=== PATIENT | male | born 1960 | race Caucasian/White ===

== ENCOUNTER 2022-03-03 08:07 | Observation (INO) | payer MEDICARE, OTHER, SELFPAY ==
[2022-03-03] VITALS (20 sets, daily range): BP systolic 93–138; BP diastolic 57–89; PULSE 74–97; RESP 16; TEMP 36.1–36.9; O2SAT 98–100; BMI 18.9; BMI 22.8
--- NOTE | 2022-03-03 08:30 | CRLHL7_ITS ---
For Patients: As a result of the Century Cures Act, medical imaging exams and procedure reports are released immediately into your electronic medical record. You may view this report before your referring provider. If you have questions, please contact your health care provider. INDICATION: CONFUSION, AMS, ELEVATED AMMONIA LEVELS. HX OF NEUROENDOCRINE TUMOR OF PANCREAS TECHNIQUE: Head CT without contrast. COMPARISON: None. FINDINGS: CSF spaces: Within normal limits for age. Brain parenchyma and extra-axial spaces: There are mild nonspecific low attenuation white matter changes consistent with chronic microvascular disease. No intracranial hemorrhage or extra-axial fluid collection. No evidence of mass effect or midline shift. The basilar cisterns are patent. Skull base and calvarium: The visualized paranasal sinuses and mastoid air cells demonstrate no acute or significant findings. The visualized orbits are grossly unremarkable. No skull fractures. IMPRESSION: No evidence of acute intracranial abnormality on this unenhanced CT. Please note that all CT scans at this facility use dose modulation, iterative reconstruction, and/or weight-based dosing when appropriate to reduce radiation dose to as low as reasonably achievable. Dictated by Vicente Shoemaker MD @ 03/03/2022 9:51:50 AM (Electronically Signed)
--- NOTE | 2022-03-03 08:40 | ED.NURSE ---
Per Dr. Meyer. Please administer 15ml of Lactulose PO now. Use patient's own med if possible. Patient was able to safely drink the 15ml without aspiration.
--- NOTE | 2022-03-03 08:45 | ED.NURSE ---
Per Pharmacy: Lactulose enema consists of 300ml of lactulose mixed with 700ml of water for a total of 1000ml of volume. Dr. Meyer was notified of this. Wants to wait for lab results until we make a decision for treatment.
[2022-03-03 08:49] LABS: Lactate* 1.5 mmol/L (0.5-1.9)
[2022-03-03 09:00] LABS: Basophils Percent Auto 0.6 % (0.0-3.0); Eosinophils Percent Auto 2.3 % (0.0-7.0); Hematocrit 33.3 % (37.0-53.0); Hemoglobin* 11.5 gm/dL (13.5-17.5); Immature Granulocytes Pct Auto 0.3 %; Lymphocytes Percent Auto 11.4 % (20-44); Mean Corpuscular HGB Conc 35 gm/dL (32-36); Mean Corpuscular Hemoglobin 29 pg (26-34); Mean Corpuscular Volume 83 fL (80-100); Monocytes Percent Auto 9.4 % (0.0-11.0); Platelet Count* 73 K/uL (140-440); RDW Coefficient of Variation % 14.9 % (11.5-15.5); Red Blood Count 4.02 m/uL (4.30-5.90); White Blood Count* 3.51 K/uL (4.50-11.00)
[2022-03-03 09:04] LABS: Slide Review Reflex No
[2022-03-03 09:19] LABS: Albumin* 3.4 g/dL (3.3-5.0); Chloride* 112 mmol/L (96-114); Potassium* 3.7 mmol/L (3.6-5.1); Sodium* 140 mmol/L (135-149)
[2022-03-03 09:21] LABS: Creatinine* 0.7 mg/dL (0.5-1.5); Estimated Glomerular Filt Rate 105 ml/min
[2022-03-03 09:22] LABS: Alanine Aminotransferase* 41 U/L (4-50); Alkaline Phosphatase* 189 U/L (40-150); Aspartate Amino Transferase* 39 U/L (12-35); Bilirubin Direct* 0.3 mg/dL (0.0-0.5); Bilirubin Total* 1.1 mg/dL (0.1-1.5); Blood Urea Nitrogen* 13 mg/dL (7-30); Carbon Dioxide* 24 mmol/L (20-32); Glucose* 265 mg/dL (60-115)
[2022-03-03 09:23] LABS: Calcium* 8.4 mg/dL (8.4-10.6)
[2022-03-03 09:25] LABS: C Reactive Protein* 1.5 mg/dL (0.5-1.0)
[2022-03-03 09:32] LABS: Ethanol* < 0.01 % (0.01-0.03)
--- OUTSIDE RECORDS SUMMARY | 2022-03-03 09:37 | XMS_ITS | Clinical Summary ---
:1960 Author Organization [facility] Address [address] [place] [address] Care Team Providers Name Role Phone Elsewhere, Pcp Primary Care Provider Unavailable Source Comments Patient records contain information from all sites at [facility]. For routine questions regarding patient records, call [phone] during business hours, M-F 8:00 AM - 5:00 PM Central Time. Record requests for emergency care only can be directed to [phone] at any time.[facility] Allergies Active Allergy Reactions Severity Noted Date Comments Ampicillin Diarrhea 06/21/2009 Black stools Black stools Medications Medication Sig Dispensed Refills Start Date End Date Status linaGLIPtin Take 5 mg by 0 Activ e (TRADJENTA) 5 mg mouth daily. tablet atorvastatin (LIPITOR) Take 40 mg by 0 Active 40 mg tablet mouth daily. nochbu-zrijmsjy-plglkv Take 6-7 0 Active e (CREON) capsules by 24,000-76,000-120,000 mouth 3 (three) Unit per DR capsule times a day with meals. 6-7 capsule with meals and 3-4 with snacks as needed. multivitamin-minerals- Take 1 tablet by 0 Active OT-fuakdrly-fbyzfg mouth daily. (CENTRUM SILVER) 0.4-300-250 mg-mcg-mcg tablet MAGNESIUM CITRATE ORAL Take 1 capsule 0 Active by mouth daily. 225mg per cap cholecalciferol Take 125 mcg by 0 Active (VITAMIN D3) 125 mcg mouth 2 (two) (5,000 Unit) capsule times a day. ZINC ORAL Take 1 tablet by 0 Act uche mouth at bedtime. 30mg per tablet lactulose (CHRONULAC) Take 15 mL (10 g 650 mL 3 02/16/2021 Active 10 gram/15 mL (15 mL) total) by mouth solution 5 (five) times a day. Take to goal of 2-3 soft bowel movements daily. lisinopril-hydroCHLORO Take 0.5 tablets 30 tablet 0 02/16/2021 Active thiazide by mouth daily. (PRINZIDE,ZESTORETIC) HOLD until 10-12.5 mg per tablet follow up with primary care physician. apixaban (ELIQUIS) 2.5 TAKE 1 TABLET BY 60 tablet 0 02/16/2021 Active mg tablet MOUTH TWO TIMES A DAY pantoprazole TAKE 1 TABLET BY 60 tablet 3 02/16/2021 (PROTONIX) 40 mg EC MOUTH TWO TIMES tablet A DAY BEFORE BREAKFAST AND DINNER Active Problems Problem Noted Date Hematemesis 02/12/2021 Hemorrhage Gastrointestinal 02/12/2021 Immunizations Name Administration Dates Next Due influenza vaccine quad (FLUZONE/FLUARIX) (6 months and 02/12 older)(PF) Social History Tobacco Use Types Packs/Day Years Used Date Smoking Tobacco: Never Smokeless Tobacco: Never Alcohol Use Standard Drinks/Week Comments Not Currently 0 (1 standard drink = 0.6 oz pure alcoho l) Sex Assigned at Date Recorded Not on file Last Filed Vital Signs Vital Sign Reading Time Taken Comments Blood Pressure 139/88 02/16/2021 3:26 PM MACHINE SETTER AND REPAIRER Pulse 81 02/16/2021 3:26 PM MACHINE SETTER AND REPAIRER Temperature 36.7 ??C (98.1 ??F) 02/16/2021 3:26 PM MACHINE SETTER AND REPAIRER Respiratory Rate 14 02/16/2021 3:26 PM MACHINE SETTER AND REPAIRER Oxygen Saturation 99% 02/16/2021 3:26 PM MACHINE SETTER AND REPAIRER Inhaled Oxygen Concentration - - Weight 74.9 kg (165 lb 2 oz) 02/15/2021 12:36 AM MACHINE SETTER AND REPAIRER Height 185 cm (6' 0.84) 02/12/2021 5:11 PM MACHINE SETTER AND REPAIRER Body Mass Index 21.88 02/12/2021 5:11 PM MACHINE SETTER AND REPAIRER Plan of Treatment Health Maintenance Due Date Last Done Comments CT Colonography 1960 Cologuard 1960 FIT 1960 HIV Screening 1960 Hepatitis B Vaccines (1 of 1960 3 - 3-dose series) Hepatitis C Screening 1960 Lipid (Cholesterol) 1960 Screening Depression Screening 03/30/2021 (Annual PHQ-2) COVID-19 Vaccine (4 - 08/14/2021 06/19/2021, 08/11/2020, Booster for Pfizer series) 07/21/2020 Influenza Vaccine (#1) 2021 02/12/2021, 02/14/2020, 01/17/2019, Additional history exists Creatinine Level 02/16/2022 02/16/2021, 02/14/2021, 02/13/2021, Additional history exists Potassium Level 02/16/2022 02/16/2021, 02/14/2021, 02/13/2021, Additional history exists Sodium Level 02/16/2022 02/16/2021, 02/14/2021, 02/13/2021, Additional history exists Fasting Glucose for 02/17/2024 02/16/2021, 02/16/2021, Diabetes Screening 02/16/2021, Additional history exists DTaP,Tdap,and Td Vaccines 10/31/2026 10/31/2016, 10/27/2005 (3 - Td or Tdap) Colonoscopy 05/17/2029 05/17/2019, 03/13/2017 Colorectal Cancer Screening 05/17/2029 Zoster Vaccines Completed 02/05/2018, 11/20/2017 Pneumococcal vaccine (0-64 Aged Out 12/14/2019 No lo nger eligible years) based on patient 's age to complete this topic Insurance Payer Benefit Plan / Subscriber ID Effective Phone Address T ype Group Dates MEDICARE MEDICARE A AND B [id number] 2020-Pre PO [address] Medicare sent [id number] [address] [facility] [id number] 2020-Pre [phone] [address] PPO INTERNATIONAL sent [id number] [place] [address] [place] (Home) [place] j[place] [phone] Advance Directives For more information, please contact: [phone] Latest Code Status on File Code Status Date Activated Date Inactivated Comments Full Code 02/12/2021 4:23 PM 02/16/2021 7:33 PM Question Answer Comments Full Code: Discussed Care Teams Court Bailiff Relationship Specialty Start Date End Date Elsewhere, Pcp PCP - General Family Medicine 02/12/21
--- OUTSIDE RECORDS SUMMARY | 2022-03-03 09:37 | XMS_ITS | Encounter Summary ---
:1960 Author Organization [facility] Address [address] [place] [address] Care Team Providers Name Role Phone Elsewhere, Pcp Primary Care Provider Unavailable Encounter Details Date Type Department Care Team Description 02/16/2021 Orders Only [facility], [facility], [facility] r [address] [place] [address] [address] [place] [id number] [phone] (Wo rk) Social History Tobacco Use Types Packs/Day Years Used Date Smoking Tobacco: Never Smokeless Tobacco: Never Alcohol Use Standard Drinks/Week Comments Not Currently 0 (1 standard drink = 0.6 oz pure alcoho l) Sex Assigned at Date Recorded Not on file documented as of this encounter Plan of Treatment Not on filedocumented as of this encounter Visit Diagnoses Not on filedocumented in this encounter Care Teams Credit Advisor Relationship Specialty Start Date End Date Elsewhere, Pcp PCP - General Family Medicine 02/12/21 documented as of this encounter
--- OUTSIDE RECORDS SUMMARY | 2022-03-03 09:37 | XMS_ITS | Clinical Summary ---
:1960 Author Organization [facility] [place] [address] Care Team Providers Name Role Phone Hiram Saini MD Primary Care Provider [phone] July, Marialuisa Yates RN, BSN Unavailable Valarie Kamara MD Unavailable Brandie Durham NP Unavailable Allergies Active Allergy Reactions Severity Noted Date Comments Ampicillin 06/21/2009 Black stools Medications Medication Sig Dispensed Refills Start Date End Date Status multivitamin (MVI) Take 1 tablet by 0 Active tablet mouth once daily. Lanreotide 120 Inject 0.5 mL 0 11/11/2017 Active mg/0.5 mL subcutaneous every syrgIndications: 4 weeks. Primary pancreatic neuroendocrine tumor ljsskw-eshbxrjm-wikg Take 6 capsules by 640 capsule 6 09/08/19 19 Active ase (CREON) mouth before each 24,000-76,000 meal and 2 -120,000 unit cpDR capsules by mouth Delayed-Release before snacks capsuleIndications: Pancreatic insufficiency atorvastatin TAKE 1 TABLET BY 90 tablet 0 11/19/2018 Active (LIPITOR) 40 mg MOUTH ONCE DAILY tabletIndications: Hyperlipidemia, unspecified hyperlipidemia type pantoprazole TAKE 1 TABLET BY 90 tablet 0 11/19/2018 Active (PROTONIX) 40 mg MOUTH ONCE DAILY delayed-release BEFORE A MEAL tabletIndications: Neuroendocrine tumor of pancreas iron,carb/vit C/vit Take 100 mg by 0 Active B12/folic (IRON 100 mouth once daily. PLUS ORAL) linaGLIPtin Take 5 mg by mouth 0 07/04/2019 Active (TRADJENTA) 5 mg once daily. tabIndications: type Indications: type 2 diabetes mellitus 2 diabetes mellitus magnesium oxide 400 Take 400 mg by 0 Active mg magnesium mouth once daily. tabIndications: Indications: low hypomagnesemia amount of magnesium in the blood apixaban (ELIQUIS) Take 2.5 mg by 0 Active 2.5 mg tablet mouth 2 times daily. cholecalciferol, Take 1 Tablet by 0 Active vitamin D3, (VITAMIN mouth once daily. D3 ORAL) 1000 iu ZINC ORAL Take 1 Tablet by 0 Act uche mouth once daily. 50mg LACTULOSE ORAL Take 15 mL/oz by 0 Active mouth 5 times daily. 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 8 Primary malignant neuroendocrine tumor of pancreas Surgical wound, non healing 08/09/2017 Colon polyps 05/18/2016 Allergic rhinitis 07/28/2011 Hypertension 06/21/2009 Hyperlipidemia 06/21/2009 Resolved Problems Problem Noted Date Resolved Date Neuroendocrine cancer 10/15/2017 09/02/2018 Primary pancreatic neuroendocrine tumor 10/15/2017 09/02/2018 Neuroendocrine tumor of pancreas 11/02/2016 019 Polyp of colon 09/02/2018 Immunizations Name Administration Dates Next Due Influenza RIV4 (Age 18+ Years) 01/17/2019 PRESERV FREE Influenza Virus, Unspecified 02/14/2020 Influenza, IIV3 (Age >=3 years) 02/21/2012 Influenza, IIV4 02/12/2021, 02/14/2020, 01/17/2019, 01/19/2018, 01/09/2017 MMR 01/30/2015 Pneumococcal Poly,23-Valent 12/14/2019 (Pneumovax) Tdap 10/31/2016, 10/27/2005 Yellow Fever 07/18/2011 Zoster (Shingrix-RZV, recombinant) 02/05/2018, 11/20/2017 Family History Medical History Relation Name Comments Other Brother 2 sleep apnea Hypertension Father Hypertension Mother Other Mother glaucoma Heart Disease Paternal Grandmother heart attac k at 85 Diabetes Sister 2 Relation Name Status Comments Brother 1 Alive Brother 2 Father Alive Mother Alive Paternal Grandmother Sister 1 Alive x2 Sister 2 Social History Tobacco Use Types Packs/Day Years Used Date Never Smoker Smokeless Tobacco: Never Used Alcohol Use Standard Drinks/Week Comments Yes 0 (1 standard drink = 0.6 oz pure alcoho l) 1 beer every other day Alcohol Habits Answer Date Recorded How often do you have a drink containing Not asked alcohol? How many drinks containing alcohol do you have Not asked on a typical day when you are drinking? How often do you have six or more drinks on one Not asked occasion? Comment: 1 beer every other day 11/09/2017 Sex Assigned at Date Recorded Not on file Obstetrics History Last Filed Vital Signs Vital Sign Reading Time Taken Comments Blood Pressure 150/83 10/07/2021 1:58 PM CDT Pulse 77 10/07/2021 1:58 PM CDT Temperature 36.8 ??C (98.3 ??F) 10/07/2021 1:58 PM CDT Respiratory Rate 18 10/07/2021 1:58 PM CDT Oxygen Saturation 98% 10/07/2021 1:58 PM CDT Inhaled Oxygen Concentration - - Weight 77.1 kg (169 lb 14.4 oz) 10/07/2021 1:58 PM CDT Height 185.4 cm (6' 1) 05/17/2019 6:52 AM LEATHER SCRUBBER Body Mass Index 22.42 05/17/2019 6:52 AM LEATHER SCRUBBER Plan of Treatment Health Maintenance Due Date Last Done Comments HIV for age 15-65 1976 Hepatitis C screening for age 0104/14/1979 18-79 Depression screening for age 12+ 11/20/2017 11/20/2016, , 10/14/2016 BMI (ht and wt on same day) for 11/18/2019 11/17/2018, 10/28, age 18+ 09/07/2017, Additional history exists Colonoscopy through age 75 05/17/2020 05/17/2019, 7, 07/16/2011, Additional history exists COVID-19 vaccine series (4 - 08/14/2021 06/19/2021, 021, Booster for Pfizer series) 07/21/2020 Influenza for age 50-64 11/28/2021 02/12/2021, 02/14/2020, 02/14/2020, Additional history exists Lipids for age 45-75 02/16/2022 02/16/2017, 01/30/2015, 05/17/2014, Additional history exists Tetanus booster 10/31/2026 10/31/2016, 06/21/2009, 10/27/2005 Tdap Completed 10/31/2016, 10/27/2005 Zoster (shingles) series for age Completed 02/05/2018, 50+ Medical Devices Implanted Type Area Consulting Marine Engineer Device Shelf Model / Identifier Expiration Serial / Date Lot Mesh Surgical 3in X 6in - [id number] Left: D-ATRIUM 01/27/2019 [id number] / Implanted: Qty: 1 on 06/20/2014 by Bravo Oakley MD at [facility] Groin / [id number] Stent Biliary [id number] Advanix Duodenal Bend Plst - [id number] [facility] 05/27/2018 [id number] / Implanted: Qty: 1 on 10/24/2016 at [facility] Gastroenterology / [id number] Explanted Type Area Consulting Marine Engineer Device Shelf Model / Identifier Expiration Serial / Date Lot Stent Biliary [id number] Advanixduodenal Bend Plst - [id number] [facility] 06/27/2018 [id number] / Implanted: Qty: 1 Gastroenterology / Explanted: Qty: 1 on 10/24/2016 at [facility] [id number] Results Not on filefrom Last 3 Months Insurance Payer Benefit Plan / Subscriber ID Effective Dates Phone Addre ss Type Group MEDICARE PART A - MEDICARE PART A [id number] 2019-Presen ATTN: CLAIMS HB USE ONLY HB ONLY t [address] [place] [address] MEDICARE PART B - MEDICARE PART B [id number] 2020-Presen ATTN: CLAIMS HB USE ONLY HB ONLY t [address] [place] [address] FOR [id number] 2021-Prese [address] [place] [address] [facility] [id number] 2018-Presen [address] [address] [place] [address] Son Rouse Personal/Family Self 1960 [id number]Home) [place] [id number] Son Rouse Personal/Family Self 1960 [id number]) [place] [id number] Advance Directives Latest Code Status on File Code Status Date Activated Date Inactivated Comments Full Code 05/17/2019 6:39 AM 05/17/2019 12:39 PM Code Status Discussion: Discussed Full Code 11/06/2016 9:39 PM 11/12/2016 5:53 PM Full Code 11/06/2016 5:21 AM 11/06/2016 9:19 PM Full Code 06/20/2014 9:23 AM 06/20/2014 12:31 PM Full Code 06/20/2014 6:57 AM 06/20/2014 9:23 AM Care Teams Tray Checker Relationship Specialty Start Date End Date Hiram Saini PCP - General 06/28/12 MD [address] [place] [address] Marialuisa Abreu RN, Cancer Nurse Coordinator Oncology 10/23/16 BSN [address] [address] Valarie Kamara Oncology Hematology and 01/10/20 MD [facility] [address] [place] [address] Brandie Durham, CORBY Oncology Hematology and 01/10/20 [address] [place] [address]
--- OUTSIDE RECORDS SUMMARY | 2022-03-03 09:38 | XMS_ITS | Continuity of Care Document ---
:1960 Author Organization [facility] Care Team Providers Name Role Phone [facility] Unavailable Unavailable Social History Combined list of available smoking, tobacco, and other social history from [facility]. Social History Type Response Date Comment Source This section is an empty social history section. [facility]
--- OUTSIDE RECORDS SUMMARY | 2022-03-03 09:38 | XMS_ITS | Encounter Summary ---
:1960 Author Organization [facility] Address [address] [place] [address] Care Team Providers Name Role Phone Elsewhere, Pcp Primary Care Provider Unavailable Encounter Details Date Type Department Care Team Description 02/13/2021 Ancillary Procedure Department of Gastroenterology Social History Tobacco Use Types Packs/Day Years Used Date Smoking Tobacco: Never Smokeless Tobacco: Never Alcohol Use Standard Drinks/Week Comments Not Currently 0 (1 standard drink = 0.6 oz pure alcoho l) Sex Assigned at Date Recorded Not on file documented as of this encounter Plan of Treatment Not on filedocumented as of this encounter Procedures Procedure Name Priority Date/Time Associated Comments Diagnosis GASTROENTEROLOGY IMAGE Routine 02/13/2021 10:30 R esults for this EXAM AM CHEESE SPRAYER procedure are i n the results section. documented in this encounter Results Esophagus, Lower third of the esophagus Upper GI endoscopy-Gastroenterology Image Exam (02/13/2021 10:30 AM CHEESE SPRAYER) Specimen (Source) Anatomical Collection Method Collection Time Re ceived Time Location / / Volume Laterality 02/13/2021 10:27 AM CHEESE SPRAYER Narrative [facility] - 02/13/2021 12:21 PM CHEESE SPRAYER This order has been created and auto-finalized to support the import of images acquired without order. The clini ming documentation to support these images can be found on the encounter jaida t produced images. Provider Not In System IMG NON RAD IMAGING PROCEDUR ES Performing Organization Address City/State/ZIP Code Phon e Number [facility] NA documented in this encounter Visit Diagnoses Not on filedocumented in this encounter Care Teams Operations Superintendent Relationship Specialty Start Date End Date Elsewhere, Pcp PCP - General Family Medicine 02/12/21 documented as of this encounter
--- OUTSIDE RECORDS SUMMARY | 2022-03-03 09:38 | XMS_ITS | Encounter Summary ---
:1960 Author Organization [facility] Address [address] [place] [address] Care Team Providers Name Role Phone Elsewhere, Pcp Primary Care Provider Unavailable Encounter Details Date Type Department Care Team Description 02/13/2021 Anesthesia Event Division of Gastroenterology Chano Dangelo, in [facility] abhi FILLING LAYER UP, TAR POT WORKER [address] [facility] [address] [place] [address] [place], [place] [phone] [id number] Anesthesia Record Procedure Summary Procedure Name Responsible Anesthesia Start Anesthesia Stop Time Anesthesiologist Time EGD Chano Dangelo, IVA, 02/13/21 1055 02/13/21 1145 (ESOPHAGEALGASTRODU TAR POT WORKER ODENOSCOPY) Events Date Time Event Comment 02/13/2021 1055 An Start Machine/Equipmen t Checked Infection Precautions Foll owed Procedure/Site Verified NPO Sta tus Verified Supine Standard ASA Mon itors Applied 1057 An Induction 1059 An Intubation 1100 Turnover to Proceduralist 1105 Proc Start 1132 Proc Fin 1132 Turnover to ANE Staff 1140 Airway Removal Criteria Met 1140 Extubation/Airway Removed 1140 an stop data 1145 An End I completed my h andoff to the receiving staff during [facility] we 1. Identified the patient 2. Ident ified the responsible provider 3. Revi ewed the pertinent medical history 4. Discussed the surgical course 5. Review ed intra-op anesthesia management and i ssues during anesthesia 6. Set expectati ons for post-procedure period 7. Allowe d opportunity for questions and ac knowledgement of understanding. Name Total fentanyl injection 50 mcg/mL 100 mcg lidocaine 2% (mg) injection 100 mg propofol 10 mg/mL 160 mg succinylcholine 20 mg/mL injection 100 mg ondansetron 4 mg/2 mL injection 4 mg octreotide 2 mcg/mL in NaCl 0.9% 250 mL infusion (Sand oSTATIN) 41.67 mcg Lactated Ringers Free Drip 400 mL Agents No agents on file. Blood No blood administrations on file. Lines, Drains, and Airways Type Details Placement Removal Peripheral IV Placement Date: 02/12/21; 02/12/21 1229 by 02/16 1600 by Placement Time: 1229; Chelita Georges APRN, Dut tenhefer, Sierra Catheter Size: 18 G; C.N.P., D.N.P. J, R.N. Orientation: Right; Location: Antecubital; Removal Date: 02/16/21; Removal Time: 1600; Removal Reason: Patient discharged Peripheral IV Placement Date: 02/12/21; 02/12/21 1230 by 02/16 1600 by Placement Time: 1230; Chelita Georges APRN, Yamileth Ramon Catheter Size: 18 G; C.N.P., D.N.P. J, R.N. Orientation: Right; Location: Forearm; Site Prep: Chlorhexidine (Preferred); Technique: Anatomical landmarks; Removal Date: 02/16/21; Removal Time: 1600 ETT Placement Date: 02/13/21; 02/13/21 1059 by 02/13 1140 by Placement Time: 1059 Chano Dangelo APRN, Mul ler, Dustin A, (created via procedure TAR POT WORKER ALEX ENRIQUE documentation); Mask Ventilation: Not attempted; Type: Standard ETT; Single Lumen Tube Size: 7.5 mm; Cuffed: Yes; Location: Oral; Grade View: Grade 1; Insertion Attempts: 1; Placement Verification: Bilateral breath sounds, Positive ETCO2, Symmetrical chest wall movement; Removal Date: 02/13/21; Removal Time: 1140 documented in this encounter Social History Tobacco Use Types Packs/Day Years Used Date Smoking Tobacco: Never Smokeless Tobacco: Never Alcohol Use Standard Drinks/Week Comments Not Currently 0 (1 standard drink = 0.6 oz pure alcoho l) Sex Assigned at Date Recorded Not on file documented as of this encounter OR Notes Anesthesia Postprocedure Evaluation - Chano Dangelo APRN, CRNA - 02/13/2021 11:45 AM CST Patient: Son Rouse Procedure Summary Date: 02/13/21 Room / Location: Division of Gastroenterology in [place], [place] Anesthesia Start: 1055 Anesthesia Stop: 1145 Procedure: EGD (ESOPHAGEALGASTRODUODENOSCOPY) Diagnosis: Scheduled Providers: Chano Dangelo APRN, CRNA Responsible Provider: Chano Dangelo APRN, CRNA Anesthesia Type: general ASA Status: 3 Anesthesia Type: general Last vitals Vitals Value Taken Time BP 150/91 02/13/21 1144 Temp 36.5 ??C 02/13/21 1144 Pulse 81 02/13/21 1145 Resp 14 02/13/21 1145 SpO2 99 % 02/13/21 1145 Vitals shown include unvalidated device data. Please reference Vitals flowsheet for most recent vital signs. Anesthesia Post Evaluation Patient Disposition: general care unit Cardiovascular status: hemodynamics (HR & BP) acceptable Respiratory status: patent airway with spontaneous effort Temperature: normothermic Oxygen requirements: room air Level of consciousness: awake Pain score: pain adequately controlled and/or at baseline Post Op nausea/vomiting: none Hydration status: euvolemic CLE COORDINATOR Anesthesia Procedure Notes - Chano Dangelo APRN, CRNA - 02/13/2021 10:59 AM CSTAssociated Order(s): Airway Airway Date/Time: 02/13/2021 10:59 AM Performed by: Chano Dangelo APRN, CRNA Authorized by: Chano Dangelo APRN, CRNA Patient location during procedure: OR / Procedure Area PROCEDURE DETAILS: Mask difficulty assessment: not attempted Final airway type: video laryngoscope Laryngeal Manipulation: no Final best view of glottic structures - Cormack/Lehane Score: grade 1 ETT location: oral VL device: glide scope Adult tube size: 7.5 Adult ETT distance at teeth/gum: 23 Oral tube type: standard ETT Cuffed: yes Number of attempt to successful placement: 1 Airway confirmation: bilateral breath sounds, positive ETCO2 and bilateral chest rise Other previous techniques attempted: none PRE PROCEDURE DETAILS: Pre evaluation for airway management: procedure Urgency: elective Preop assessment of probable difficulty: no difficulty anticipated Preoxygenation: bag valve mask SEDATION / ANESTHESIA Anesthesia method: anesthesia POST PROCEDURE DETAILS: Procedure outcome: successful Airway event: no complications ATTESTATION STATEMENT CLE COORDINATOR Anesthesia Preprocedure Evaluation - Chano Dangelo APRN, CRNA - 02/13/2021 10:50 AM CST Preprocedure Anesthesia & H&P Assessment Procedure Summary Date/Time: 02/13/21 1000 Scheduled providers: Chano Dangelo APRN, CRNA Procedure: EGD (ESOPHAGEALGASTRODUODENOSCOPY) Location: Division of Gastroenterology in [place], [place] Pertinent components of the patient's history including current problem list, medical history, surgical history, family history, social history, medications and allergies were reviewed. Present illnessand pre-op diagnosis were confirmed. The planned surgery / procedure was verified with the patient /legal guardian. The patient's general health condition remains unchanged RELEVANT COMORBID CONDITIONS No relevant active problems OBJECTIVE PHYSICAL EXAMINATION Airway (HEENT) Mallampati: II TM Distance: >3 FB Neck ROM: Full Mouth Opening: >3 cm Cardiovascular Rhythm: Regular Rate: Normal Cardiovascular Assessment: cardiovascular normal Functional Capacity: >4 METS Pulmonary Pulmonary Assessment: Clear General / Constitutional Constitutional Assessment: Normal General State of Health:: healthy appearing and calm Neurological Neurologic Assessment:??alert Dental Dental Assessment: dentition intact ASSESSMENT / PLAN ANESTHESIA PLAN ASA: 3 Anesthesia Plan: general Patient seen and allergies reviewed, anesthesia plan and risks discussed directly with patient /legal guardian or through an funding specialist. Risks/Benefits/Alternatives of Blood transfusion discussed with patient / legal guardian, including an opportunity to ask questions and/or decline some or all transfusion therapies. The patient / legalguardian consented to the use of all blood products, as deemed medically necessary Approval to Proceed: approved for anesthesia CLE COORDINATOR documented in this encounter Plan of Treatment Not on filedocumented as of this encounter Procedures Procedure Name Priority Date/Time Associated Comments Diagnosis LDA ANE ENDOTRACHEAL Routine 02/13/2021 10:59 Res ults for this AIRWAY AM RECYCLE COORDINATOR procedure are i n the results section. documented in this encounter Results LDA ANE ENDOTRACHEAL AIRWAY (02/13/2021 10:59 AM RECYCLE COORDINATOR) Narrative Chano Dangelo APRN, CRNA - 10:59 AM RECYCLE COORDINATOR Chano Dangelo APRN, CRNA ? 02/13/2021 11:05 AM Airway Date/Time: 02/13/2021 10:59 AM Performed by: Chano Dangelo APRN, CR NA Authorized by: Chano Dangelo APRN, C RNA Patient location during procedure: OR / Procedure Area PROCEDURE DETAILS: Mask difficulty assessment: not attempte d Final airway type: video laryngoscope Laryngeal Manipulation: no ?? Final best view of glottic structures - Cormack/Lehane Score: grade 1 ETT location: oral VL device: glide scope Adult tube size: 7.5 Adult ETT distance at teeth/gum: 23 Oral tube type: standard ETT Cuffed: yes Number of attempt to successful placemen t: 1 Airway confirmation: bilateral breath so unds, positive ETCO2 and bilateral chest rise Other previous techniques attempted: non e PRE PROCEDURE DETAILS: Pre evaluation for airway management: pr ocedure Urgency: elective Preop assessment of probable difficulty: no difficulty anticipated Preoxygenation: bag valve mask SEDATION / ANESTHESIA Anesthesia method: anesthesia POST PROCEDURE DETAILS: ? Procedure outcome: successful ?? Airway event: no complications ATTESTATION STATEMENT Chano Dangelo APRN, CRNA ANESTHESIA ORDERABLES documented in this encounter Visit Diagnoses Not on filedocumented in this encounter Administered Medications Inactive Administered Medications - up to 3 most recent administrations Medication Order MAR Action Action Date Dose Rate Site fentaNYL injection (SUBLIMAZE) Given 02/13/2021 11:03 AM RECYCLE COORDINATOR 100 mcg intravenous, As needed, Starting on Thu02/13/21 at 1103, Anesthesia Intra-op lactated ringers New Bag 02/13/2021 10:56 AM RECYCLE COORDINATOR intravenous, Continuous Infusion: Per Instructions PRN, Starting on Thu02/13/21 at 1056, Anesthesia Intra-op lidocaine (PF) (cardiac) injection Given 02/13/2021 10:57 AM RECYCLE COORDINATOR 100 mg intravenous, As needed, Starting on Thu02/13/21 at 1057, Anesthesia Intra-op octreotide 2 mcg/mL in NaCl 0.9% New Bag 02/15/2021 10:[address] 50 mcg/hr 25 mL/hr 250 mL infusion (SandoSTATIN) 50 mcg/hr (25 mL/hr), intravenous, Continuous, Starting on Thu02/12/21 at 1228, For 72 hours, Protect from light. New Bag 02/15/2021 12:36 AM RECYCLE COORDINATOR 50 mcg/hr 25 mL/hr New Bag 02/14/2021 2:23 PM RECYCLE COORDINATOR 50 mcg/hr 25 mL/hr ondansetron (PF) injection (ZOFRAN) Given 02/13/2021 11:03 AM RECYCLE COORDINATOR 4 mg intravenous, As needed, Starting on Thu02/13/21 at 1103, Anesthesia Intra-op propofoL injection (DIPRIVAN) Given 02/13/2021 10:57 AM RECYCLE COORDINATOR 160 mg intravenous, As needed, Starting on Thu02/13/21 at 1057, Anesthesia Intra-op succinylcholine (PF) injection (ANECTINE ) Given 02/13/2021 10:57 AM RECYCLE COORDINATOR 100 mg intravenous, As needed, Starting on Thu02/13/21 at 1057, Anesthesia Intra-op documented in this encounter Care Teams Professional Development Manager Relationship Specialty Start Date End Date Elsewhere, Pcp PCP - General Family Medicine 02/12/21 documented as of this encounter
--- OUTSIDE RECORDS SUMMARY | 2022-03-03 09:38 | XMS_ITS | Encounter Summary ---
:1960 Author Organization [facility] Address [address] [place] [address] Care Team Providers Name Role Phone Elsewhere, Pcp Primary Care Provider Unavailable Reason for Visit Reason Comments Altered Mental Status Encounter Details Date Type Department Care Team Description 02/12/2021 - Hospital [facility] Felix Hernandez P .A.-C. [address] [place] [phone] Hemorrhage Gastrointestinal (Primary Dx) ; 02/16/2021 [facility] London[facility]ch burton M.D. [address] [place] [phone] Hematemesis; [facility], Mark Martniez M.D. [address] [place] [address] Change Mental Status; Domitilla Hyperammonemia ([facility]) Building, Sixth Floor [address] [place] [phone] Social History Tobacco Use Types Packs/Day Years Used Date Smoking Tobacco: Never Smokeless Tobacco: Never Alcohol Use Standard Drinks/Week Comments Not Currently 0 (1 standard drink = 0.6 oz pure alcoho l) Sex Assigned at Date Recorded Not on file documented as of this encounter Last Filed Vital Signs Vital Sign Reading Time Taken Comments Blood Pressure 139/88 02/16/2021 3:26 PM TUBE COREMAKER Pulse 81 02/16/2021 3:26 PM TUBE COREMAKER Temperature 36.7 ??C (98.1 ??F) 02/16/2021 3:26 PM TUBE COREMAKER Respiratory Rate 14 02/16/2021 3:26 PM TUBE COREMAKER Oxygen Saturation 99% 02/16/2021 3:26 PM TUBE COREMAKER Inhaled Oxygen Concentration - - Weight 74.9 kg (165 lb 2 oz) 02/15/2021 12:36 AM TUBE COREMAKER Height 185 cm (6' 0.84) 02/12/2021 5:11 PM TUBE COREMAKER Body Mass Index 21.88 02/12/2021 5:11 PM TUBE COREMAKER documented in this encounter Discharge Summaries Chandni James M.D. - 02/16/2021 2:15 PM CST DISCHARGE SUMMARY BRIEF OVERVIEW Hospital: [facility] Discharge Provider: Mark Martinez M.D. Primary Care Provider at Discharge: Primary Care Providers: Elsewhere, Pcp (General) No address on file Primary Care Provider Phone Number: None Primary Care Provider Fax Number: None Other Providers: None Primary Team: [facility] Gastroenterology A Admission Date: 02/12/2021 Discharge Date: 02/16/21 PRINCIPAL DIAGNOSIS Hematemesis SECONDARY DIAGNOSES Principal Problem: Hematemesis Active Problems: Hemorrhage Gastrointestinal Resolved Problems: * No resolved hospital problems. * DISCHARGE DISPOSITION Home or Self Care [1] ACTIVE ISSUES REQUIRING FOLLOW UP 1. Medication changes - Continue Protonix 40 mg twice daily - Hold lisinopril-HCTZ until follow up with PCP - Apixaban was reduced to 2.5 mg twice daily - continue this dose until follow- up with GI - Continue lactulose 3-5 times per day depending ob number of bowel movements; goal is to have 3-4 bowel movements daily 2. Outpatient Gastroenterology follow-up for repeat banding of esophageal varices and evaluation of underlying liver disease in [place]. If unable to be performed outpatient, please contact us to helpget this set-up OUTPATIENT FOLLOW UP For appointment details refer to your Patient Appointment Guide. TEST RESULTS PENDING AT DISCHARGE Pending Labs None DETAILS OF HOSPITAL STAY REASON FOR ADMISSION Hematemesis Change Mental Status Hyperammonemia (HCC) Hemorrhage Gastrointestinal HOSPITAL COURSE Son Ram Nasim is a 60 y.o. male admitted with hematemesis and altered mental status. Prior to Presentation: The was at bedside and provided the collateral history. She reports he was in his usual state of health up until the morning of admission when the patient woke up confused and was covered with bright red blood which prompted her to seek emergency care. On route to the ED, the patient was hemodynamically stable but had 100 cc of hematemesis. The patient was on apixaban for portal vein thrombosis prophylaxis after portal vein stenting with his last dose 10:30 a.m. the day before admission.. Past medical history notable for: ?? 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 s/p Whipple pancreaticoduodenectomy with SMV resection and portal vein reconstruction on 11/06/2016 complicated by postoperative wound infection requiring wound VAC ?? 2 rounds of PRRT (Lutathera in August 2020 ?? Splenic embolization in December 2020 ?? Portal hypertension ?? Underwent portal vein stenting and a tips procedure on 12/17/2019 ?? Apixaban 2.5 mg b.i.d. for portal vein dose ?? Right inguinal hernia repair x2 ?? Ventral hernia repair with mesh in November 2019 ?? Hyperlipidemia ?? Atorvastatin 40 mg ?? Type 2 diabetes ?? Linagliptin 5 mg p.o. once a day ?? Hypertension ?? Lisinopril-hydrochlorothiazide (10-12.5 mg once a day) ?? Gastroesophageal reflux disease ?? Pantoprazole 40 mg Emergency Department: In the ED, he had a GCS of 10 but was protecting his airway. He was found to have urinary retention and a urinary catheter was placed with 1 L of output. He had mild anemia with a hemoglobin of 12.8 but otherwise his BMP was unremarkable and had a normal kidney function. CT head negative for intracranial hemorrhage. CT abdomen pelvis revealed prominent esophageal varices. Medical Floor: On arrival to the floor his GCS improved to 8 and he was sleeping in bed but arousable to painful stimuli. Overnight there were no acute events and on waking up in the morning he was alert orientated to time place and person and is mentation and cleared. His hemoglobin was stable and we proceeded withan EGD which revealed esophageal varices with stigmata of recent bleeding which were banded. He was started on IV octreotide for 72 hours and this was discontinued on 02/15 and he remained hemodynamically stable thereafter. He was initially started on IV PPI which was transition to PO and he should continue this after discharge. He received 5 days of antibiotics (Ceftriaxone) for SBP prophylaxis. He likely had hepatic encephalopathy on admission and he likely has underlying primary liver parenchymal disease of unclear etiology which will need further outpatient evaluation by Gastroenterology. He did not have recurrence of his GI bleeding. Hb remained stable at 11 on discharge. He understands the need for follow-up EGD with probable banding in 3-4 weeks and will try to arrange that in [place]. If he cannot do that he will return to [place]. He also understands that he will need workup for potential underlying liver disease.The patient prefers this to be done in [place]. CONSULTS ORDERED DURING THIS ADMISSION IP CONSULT TO GASTROENTEROLOGY Leukocytes Date Value Ref Range Status 02/15/2021 5.6 3.4 - 9.6 x10(9)/L Final Erythrocytes Date Value Ref Range Status 02/15/2021 3.72 (L) 4.35 - 5.65 x10(12)/L Final Hemoglobin Date Value Ref Range Status 02/16/2021 11.5 (L) 13.2 - 16.6 g/dL Final Platelet Count Date Value Ref Range Status 02/15/2021 75 (L) 135 - 317 x10(9)/L Final BUN (Blood Urea Nitrogen), S Date Value Ref Range Status 02/16/2021 12 8 - 24 mg/dL Final Creatinine, S Date Value Ref Range Status 02/16/2021 0.85 0.74 - 1.35 mg/dL Final Glucose, S Date Value Ref Range Status 02/16/2021 150 (H) 70 - 140 mg/dL Final Glucose, POCT, B Date Value Ref Range Status 02/16/2021 96 70 - 140 mg/dL Final CONDITION AT DISCHARGE improved Discharge instructions were provided to the patient and caregiver(s). COREMAKER documented in this encounter Discharge Instructions Discharge InstructionsYolie Burnett - 02/13/2021 7:16 AM CST You were discharged from the [facility] Gastroenterology A Service. Please identify this service name if you call with questions after hospitalization. COREMAKER AttachmentsThe following attachments cannot be sent through Care Everywhere. Lactulose (By mouth) (Venezuelan)documented in this encounter Medications at Time of Discharge Medication Sig Dispensed Refills Start Date End Date atorvastatin (LIPITOR) 40 Take 40 mg by mouth 0 mg tablet daily. cholecalciferol (VITAMIN Take 125 mcg by 0 D3) 125 mcg (5,000 Unit) mouth 2 (two) times capsule a day. linaGLIPtin (TRADJENTA) 5 Take 5 mg by mouth 0 mg tablet daily. aedcvk-gswxybon-buhazad Take 6-7 capsules 0 (CREON) by mouth 3 (three) 24,000-76,000-120,000 Unit times a day with per DR capsule meals. 6-7 capsule with meals and 3-4 with snacks as needed. MAGNESIUM CITRATE ORAL Take 1 capsule by 0 mouth daily. 225mg per cap jzwcrvnonzlu-lfxffasb-GD-l Take 1 tablet by 0 ycopene-lutein (CENTRUM mouth daily. SILVER) 0.4-300-250 mg-mcg-mcg tablet ZINC ORAL Take 1 tablet by 0 mouth at bedtime. 30mg per tablet apixaban (ELIQUIS) 2.5 mg TAKE 1 TABLET BY 60 tablet 0 01/29 tablet MOUTH TWO TIMES A DAY lactulose (CHRONULAC) 10 Take 15 mL (10 g 650 mL 3 02/16 gram/15 mL (15 mL) total) by mouth 5 solution (five) times a day. Take to goal of 2-3 soft bowel movements daily. lisinopril-hydroCHLOROthia Take 0.5 tablets by 30 tablet 0 02/16/2021 zide (PRINZIDE,ZESTORETIC) mouth daily. HOLD 10-12.5 mg per tablet until follow up with primary care physician. pantoprazole (PROTONIX) 40 TAKE 1 TABLET BY 60 tablet 3 02/16/2022 mg EC tablet MOUTH TWO TIMES A DAY BEFORE BREAKFAST AND DINNER documented as of this encounter Progress Notes Cecelia Bernabe Pharm.D., R.Ph. - 02/16/2021 11:32 AM CST Pharmacist Progress Note Reason for admission: hematemesis and altered mental state PMH: metastatic pancreatic neuroendocrine cancer w/ liver mets, s/p whipple procedure 10/2016, portalhypertension, s/p TIPS procedure 11/2019, esophageal varices, splenic embolization in 12/2020 T2DM, HTN, GERD, HLP OBJECTIVE Home medications by [facility] with family: ?? Held: lisinopril-HCTZ, vitD, atorvastatin, magnesium supplement, MVI, zinc supplement, linaGLIPtin ?? Changed:apixaban dose DVT Prophylaxis: held for bleeding ASSESSMENT / PLAN 1. Hematemesis. EGD showed large varices with stigmata of recent bleeding - s/p banding. PPI BID. Heis off octreotide. Day #5 ceftriaxone for SBP ppx. Apixaban resumed at reduced dose (takes this for portal vein stenting). 2. AMS. Suspected HD. Lactulose 10g 5x/day initiated, increased from 10g TID. Not many BM/day charted. Will need ongoing titration. 3. T2DM- insulin aspart correctional, BS goal 140-180 4. HTN- holding lisinopril-HCTZ, SBP have been in the 120-130s. Edith Bernabe, Pharm.DJordan, R.Ph. COREMAKER Mark Martinez M.D. - 02/16/2021 10:04 AM CST Inpatient Progress Note 02/16/2021 I have reviewed the available records, interviewed and examined the patient. Plans for the day were discussed. Subjective: Continues to do well. No evidence of recurrent bleeding or somnolence. Eating without difficulty. Objective: Temperature: [36.3 ??C-36.5 ??C] 36.4 ??C Heart Rate: [64-86] 64 Resp Rate: [13-20] 16 Blood Pressure: (145)/(89-90) 145/90 SpO2: [97 %-100 %] 100 % Flow Rate (L/min): [0 L/min] 0 L/min Pulse Rate: [64-91] 64 Physical Exam: Resting comfortably in bed in no distress Mental status is clear Assessment / Plan: #1??Upper GI bleed with??Hematemesis??due to esophageal varices #2??Metastatic pancreatic neuroendocrine tumor status post Whipple procedure #3??Portal hypertension status post portal vein stenting and tips procedure #4??Recent splenic artery embolization with splenic infarcts, largely asymptomatic?? #5??Anticoagulation with apixaban for??#3 #6??Mental status changes, somnolence of uncertain etiology, rule out hepatic encephalopathy, resolved #7??Acute blood loss anemia He has not had recurrence of his GI bleeding and is ready to leave the hospital. He understands the need for follow-up EGD with probable banding in 3-4 weeks and is trying to arrange that in [place]. If he cannot do that he will return to [place]. He also understands that he will need workup for potential underlying liver disease. Patient was seen along with Judith Dan COREMAKER Mark Martinez M.D. - 02/15/2021 1:26 PM CST Inpatient Progress Note 02/15/2021 This is a supervisory note for Dr. Maddie Chandler. I have reviewed the available records, interviewed andexamined the patient. I agree with the history, physical examination, and plan as outlined in Dr. Maddie Chandler's note from today. Subjective: Doing well with no complaints. No recurrent bleeding. Objective: Temperature: [36.5 ??C-36.6 ??C] 36.6 ??C Heart Rate: [69-88] 71 Resp Rate: [11-23] 19 SpO2: [97 %-99 %] 99 % Pulse Rate: [69-77] 70 Physical Exam: Resting comfortably in bed in no distress No jaundice Abdomen not distended Mental status is clear Assessment / Plan: #1 Upper GI bleed with Hematemesis due to esophageal varices #2??Metastatic pancreatic neuroendocrine tumor status post Whipple procedure #3 Portal hypertension status post portal vein stenting and tips procedure #4??Recent splenic artery embolization with splenic infarcts, largely asymptomatic?? #5??Anticoagulation with apixaban for??#3 #6??Mental status changes, somnolence of uncertain etiology, rule out hepatic encephalopathy, resolved #7 Acute blood loss anemia He is doing well with no evidence of recurrent bleeding. We are going to stop his octreotide and observe him overnight. If he remains stable he will be discharged tomorrow. He understands the need foroutpatient evaluation to see if he indeed has underlying intrinsic liver disease and if so what the cause would be. He will be seeing if he can get in with a cooperative education coordinator in [place] within the next 4 weeks for his repeat banding and liver workup. If not we have strongly recommended that he return here to see us. Patient was seen with Judith Dan COREMAKER Tay Chandler M.B.B.S. - 02/15/2021 6:43 AM CST GI-A PROGRESS NOTE SUBJECTIVE Interval Events: ?? Remains afebrile and hemodynamically stable overnight ?? No acute events ?? Pending labs this a.m. ?? Hemoglobin 1 unit down from 11.8 to 10.8 yesterday REVIEW OF SYSTEMS: See HPI. Negative except as noted in the HPI. OBJECTIVE VITAL SIGNS: Temperature: [36.5 ??C-36.6 ??C] 36.5 ??C Heart Rate: [66-88] 69 Resp Rate: [11-21] 11 Blood Pressure: (149-154)/(85-88) 149/85 SpO2: [97 %-99 %] 98 % Weight: [74.9 kg] 74.9 kg BMI (Calculated): [21.9 kg/m??] 21.9 kg/m?? Pulse Rate: [66-77] 69 PHYSICAL EXAM: GEN: well-appearing. Alert orientated to time place and person HEENT: Moist mucous membranes. CARDS: Regular rate and rhythm, no murmurs. JVP within normal limits. PULM: Reduced air entry in thebases ABD: Soft nontender to palpation nondistended. Evidence of a midline scar INTEG: No visible rashes or skin lesions. MSK: No joint contractures or deformities. PV: Warm, well-perfused. Palpable pulses in bilateral lower extremities. NEURO: Moves all extremities spontaneously. PSYCH: Appropriate, cooperative. Intake/Output Summary (Last 24 hours) at 02/15/2021 0643 Last data filed at 02/15/2021 0036 Gross per 24 hour Intake 2969.58 ml Output -- Net 2969.58 ml ASSESSMENT / PLAN Son Rouse is a 60 y.o. male admitted from the ED after presenting with hematemesis and encephalopathy in the setting of known metastatic pancreatic neuroendocrine cancer and portal hypertension s/p portal vein stenting and tips. Acute Problems: # Upper GI bleed with Hematemesis due to esophageal varices # Metastatic pancreatic neuroendocrine tumor status post Whipple procedure 11/06/2016 # Portal hypertension status post portal vein stenting and tips procedure 12/17/2019 #4??Recent splenic artery embolization with splenic infarcts, largely asymptomatic?? # Anticoagulation with apixaban for??#3 # Mental status changes, somnolence of uncertain etiology, rule out hepatic encephalopathy, resolved # Acute blood loss anemia On admission, he was disorientated to time place and person with a GCS of 8-10. This was likely hepatic encephalopathy in the setting of portal hypertension despite his TIPS suggesting he may have intrinsic parenchymal liver disease but currently the etiology of this is unclear. He further had hematemesis secondary to esophageal varices which were banded. As he does not have a significant alcohol history, family history of liver disease, risk factors for chronic liver disease and only metastases to the liver from the pancreatic neuroendocrine tumor which would not explain this presentation. Plan: ?? Outpatient Gastroenterology follow-up for further evaluation for chronic liver disease. Patient prefers this be done in [place] ?? Continue IV octreotide ?? Increased lactulose from t.i.d. to 5 times a day for hepatic encephalopathy as the patient has not had a bowel motion in over 24 hours but is otherwise mentating well today ?? Continue IV ceftriaxone for SBP prophylaxis plan for 5 days ?? Restarting low-dose apixaban 2.5mg bid tonight Chronic Problems: ?? # Hyperlipidemia ? Atorvastatin 40 mg - Holding #Type 2 diabetes ? Holding home Linagliptin 5 mg p.o. once a day ? Moderate insulin sliding scale #Hypertension ? Holding home Lisinopril-hydrochlorothiazide (10-12.5 mg once a day) due to GI bleed and concern for hemodynamic instability on admission # Gastroesophageal reflux disease ? PO Pantoprazole 40 mg b.i.d. Ikram-Ul Ramesh, MBBS PGY-2 Internal Medicine Plan discussed with [facility] Gastroenterology A Railcar Brake Operator, Mark Miles M.D. Please TEXT PAGE GI-A with any Questions COREMAKER Mark Martinez M.D. - 02/14/2021 10:52 AM CST Inpatient Progress Note 02/14/2021 I have reviewed the available records, interviewed and examined the patient. Plans for the day were discussed. Subjective: Doing well with no recurrent bleeding or somnolence. Ambulating and eating without difficulty. Objective: Temperature: [36.2 ??C-36.8 ??C] 36.6 ??C Heart Rate: [63-81] 73 Resp Rate: [9-23] 14 Blood Pressure: (125-157)/(81-103) 154/88 SpO2: [97 %-100 %] 98 % Pulse Rate: [62-86] 75 Physical Exam: Resting comfortably in bed in no distress Mental status is clear Liver ultrasound with Doppler showed bidirectional flow in the main portal vein and retrograde flow in the left portal vein. The tips was patent. EGD showed large varices, 1 of which had a fibrin plug.Four bands were placed. Assessment / Plan: #1 Upper GI bleed with Hematemesis due to esophageal varices #2 Metastatic pancreatic neuroendocrine tumor status post Whipple procedure #3 Portal hypertension status post portal vein stenting and tips procedure #4 Recent splenic artery embolization with splenic infarcts, largely asymptomatic #5 Anticoagulation with apixaban for #3 #6 Mental status changes, somnolence of uncertain etiology, rule out hepatic encephalopathy, resolved #7 Acute blood loss anemia The presence of bleeding esophageal varices, retrograde flow in the left portal vein, and what appears to be hepatic encephalopathy despite a patent tips suggests that he may have intrinsic parenchymalliver disease. At this point, our understanding is that the burden of tumor in his liver is not sufficient to explain his entire picture. He does not have a significant alcohol history, family history of liver disease, or known risk factors for chronic liver disease. He therefore will need further workup for chronic liver disease as an outpatient, which he prefers to get with his doctors in [place].Given the presence of bleeding esophageal varices we will keep him on octreotide for 2 more days andthen anticipate discharge if he remains stable. Continue lactulose for his encephalopathy, which hascleared, and ceftriaxone to prophylax against development of SBP and other infections.. Patient was seen along with Judith Dan Roxi Silva, Pharm.DJordan, R.Ph. - 02/13/2021 7:54 AM CST Pharmacist Progress Note Reason for admission: hematemesis and altered mental state PMH: metastatic pancreatic neuroendocrine cancer w/ liver mets, s/p whipple procedure 10/2016, portalhypertension, s/p TIPS procedure 11/2019, esophageal varices, splenic embolization in 12/2020 T2DM, HTN, GERD, HLP OBJECTIVE Home medications: ?? Held: apixaban (last dose 02/11 AM), lisinopril, lisinopril-HCTZ, vitD, atorvastatin, CREON, magnesium supplement, MVI, zinc supplement, linaGLIPtin ?? DVT Prophylaxis: held for bleeding ASSESSMENT / PLAN Medication specific plan 1. GIB, known esophageal varices 1. PPI IV BID, octreotide infusion at 50mcg/hr, Hgb 11.8, EGD 2. Ceftriaxone 1g every 24hrs (started 16PM, following up on cirrhosis diagnosis), lactulose 10g TID 2. T2DM- insulin aspart correctional, BS goal 140-180 3. HTN- holding lisinopril, lisinopril-HCTZ, SBP 110s-120s this AM 4. Home medication reconciliation: consider resuming creon with meals/snacks when patient is no longer NPO Changes to medications anticipated at discharge: pending hospital course Roxi Levine, PharmCodey., R.Ph. [phone] Cecelia Marvin Pharm.D., R.Ph. - 02/12/2021 5:29 PM CST Admission Medication History Note Medication list source: Family member Adherence issues: No concerns Active Home Medications Medication Sig apixaban (ELIQUIS) 5 mg tablet Take 5 mg by mouth 2 (two) times a day. atorvastatin (LIPITOR) 40 mg tablet Take 40 mg by mouth daily. cholecalciferol (VITAMIN D3) 125 mcg (5,000 Unit) capsule Take 125 mcg by mouth 2 (two) times a day. linaGLIPtin (TRADJENTA) 5 mg tablet Take 5 mg by mouth daily. cghueu-toeddhlk-jjywcyd (CREON) 24,000-76,000-120,[address] capsule Take 6-7 capsules by mouth3 (three) times a day with meals. 6-7 capsule with meals and 3-4 with snacks as needed. lisinopriL (PRINIVIL,ZESTRIL) 10 mg tablet Take 10 mg by mouth daily. lisinopril-hydroCHLOROthiazide (PRINZIDE,ZESTORETIC) 10-12.5 mg per tablet Take 0.5 tablets by mouthdaily. MAGNESIUM CITRATE ORAL Take 1 capsule by mouth daily. 225mg per cap athhlhmyepmf-oiphnpzk-XP-lycopene-lutein (CENTRUM SILVER) 0.4-300-250 mg-mcg-mcg tablet Take 1 tablet by mouth daily. pantoprazole (PROTONIX) 40 mg EC tablet Take 40 mg by mouth every morning before breakfast. ZINC ORAL Take 1 tablet by mouth at bedtime. 30mg per tablet COREMAKER documented in this encounter H&P Notes Mark Martinez M.D. - 02/13/2021 11:45 AM CST Hospital Admission Note Date: 02/13/2021 Chief Complaint/Reason for Admission: Hematemesis This is a supervisory note for Maddie Chandler. I have reviewed the available records, interviewed and examined the patient. I agree with the history, physical examination, and plan as outlined in Dr. Maddie Chandler's admission note from yesterday. History of Present Illness: Mr. Rouse is a 60 y.o. male with metastatic pancreatic neuroendocrine tumor with portal hypertension and known esophageal varices treated with anticoagulation because of a stent who was admitted because of mental status changes (somnolence) and hematemesis. Overnight, his mental status has nearly completely normalized and he has not had any further bleeding. Review of Systems: All other systems reviewed and negative unless mentioned in the history of present illness or problem list. History Review: I reviewed the patient's allergies, current medications, family history, medical history, social history, surgical history and problem list. Objective: Vital Signs: Temperature: [36.1 ??C-36.7 ??C] 36.5 ??C Heart Rate: [67-94] 81 Resp Rate: [7-23] 15 Blood Pressure: (114-158)/(59-101) 150/91 SpO2: [91 %-100 %] 99 % Pulse Rate: [67-92] 86 Physical Exam: General: Resting comfortably in NAD Eyes: No icterus or inflammation Neck: No cervical or supraclavicular lymphadenopathy. No thyroid masses or tenderness. Abdomen: Soft nontender nondistended without masses or hepatosplenomegaly Extremities: no edema cords or calf tenderness Skin: Anicteric without obvious stigmata of chronic liver disease Psych: alert, oriented, appropriate Neurologic: Minimal asterixis Assessment/Plan: #1 Hematemesis #2 Metastatic pancreatic neuroendocrine tumor status post Whipple procedure #3 Known portal hypertension with esophageal varices status post portal vein stenting and tips procedure #4 Recent splenic artery embolization with splenic infarcts, largely asymptomatic #5 Anticoagulation with apixaban for #3 #6 Mental status changes, somnolence of uncertain etiology, rule out hepatic encephalopathy, resolving The etiology for his mental status changes is not clear but the elevated serum ammonium would suggest the possibility of hepatic encephalopathy so he received lactulose. He is not known to have underlying chronic liver disease. He does have metastatic disease in the liver but as far as we know there is not a large tumor burden that would lead to liver dysfunction, and furthermore his INR is normal and his bilirubin is only 1.5. In any event, his mental status has cleared considerably and we are inclined to continue lactulose. In addition, given the uncertainty as to underlying liver disease he is being treated with ceftriaxone to prophylax against infections in the setting of GI bleeding. Althoughhe is known to have varices, he has been hemodynamically stable and in fact bleeding has not recurred since admission so I do not think this is a variceal hemorrhage. He is on PPI and octreotide and will get an urgent endoscopy this morning to clarify the underlying source of bleeding. COREMAKER Tay Chandler M.B.B.S. - 02/12/2021 3:27 PM CST GI-A ADMISSION NOTE SUBJECTIVE CHIEF COMPLAINT: Hematemesis HISTORY OF PRESENT ILLNESS: Son Rouse is a 60 y.o. male admitted with hematemesis and altered mental status in the setting of known portal hypertension with a background of metastatic pancreatic neuroendocrine cancer. The was at bedside and provided the collateral history. She reports he was in his usual state of health up until 11:00 a.m. this morning when he woke up confused and and covered with bright red blood which prompted her to seek emergency care On route to the ED, the patient was hemodynamically stable but had 100 cc of hematemesis. The patient is on apixaban after portal vein stenting with his last dose 10:30 a.m. yesterday. Past medical history notable for: ?? 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 s/p Whipple pancreaticoduodenectomy with SMV resection and portal vein reconstruction on 11/06/2016 complicated by postoperative wound infection requiring wound VAC ?? 2 rounds of PRRT (Lutathera in August 2020 ?? Splenic embolization in December 2020 ?? Portal hypertension ?? Underwent portal vein stenting and a tips procedure on 12/17/2019 ?? Apixaban 2.5 mg b.i.d. for portal vein dose ?? Right inguinal hernia repair x2 ?? Ventral hernia repair with mesh in November 2019 ?? Hyperlipidemia ?? Atorvastatin 40 mg ?? Type 2 diabetes ?? Linagliptin 5 mg p.o. once a day ?? Hypertension ?? Lisinopril-hydrochlorothiazide (10-12.5 mg once a day) ?? Gastroesophageal reflux disease ?? Pantoprazole 40 mg In the ED, he had a GCS of 10 but was protecting his airway. He was found to have urinary retention and a urinary catheter was placed with 1 L of output. Labs: ??? Hemoglobin 12.8 ??? Thrombocytopenia Platelets 117 ??? INR 1.2 ??? BMP unremarkable normal kidney function ??? Total bilirubin 1.5 and ALP 152 ??? ALT 104, AST 52 ??? Elevated lactate 4.15 which down trended to 2.6 ??? Ammonia 114 ??? Normal lipase 6 ??? Normal serum ethanol level Imaging: ??? ECG: Normal sinus rhythm ??? CT head: o No acute intracranial hemorrhage ??? CT abdomen pelvis: o No evidence of active extravasation o Prominent esophageal/paresis of a GI varices On the floor, he had a GCS of 8: E(2) V(2) M(4). He Was sleeping in bed arousable to painful stimuli. His was at bedside who recounted the above clinical history. He did not have evidence of ascites on examination and did not have jaundice REVIEW OF SYSTEMS: See HPI. Negative except as noted in the HPI. OBJECTIVE PHYSICAL EXAM: GEN: GCS 8: E 2, V2, M4 HEENT: Moist mucous membranes. CARDS: Regular rate and rhythm, no murmurs. JVP within normal limits. PULM: Reduced air entry in thebases ABD: Soft nontender to palpation nondistended. Evidence of a midline scar INTEG: No visible rashes or skin lesions. MSK: No joint contractures or deformities. PV: Warm, well-perfused. Palpable pulses in bilateral lower extremities. NEURO: Moves all extremities spontaneously. PSYCH: Appropriate, cooperative. ASSESSMENT / PLAN Son Rouse is a 60 y.o. male admitted from the ED after presenting with hematemesis and altered mental state in the setting of known metastatic pancreatic neuroendocrine cancer and portal hypertension. Acute Problems: # hematemesis in the setting of known portal hypertension and esophageal varices # portal hypertension s/p portal vein stenting and a tips procedure on 12/17/2019 on apixaban last dose 02/11 10:30 a.m. # acute encephalopathy likely toxic - grade 3 He remains hemodynamically stable with a hemoglobin of 12.8. During transport he had 100 cc of bright red blood hematemesis but has had no repeat events. He has a known history of portal hypertension without liver cirrhosis with a CT abdomen pelvis revealing prominent esophageal varices which are the likely etiology. We will proceed with an EGD with the plan to band any bleeding varices or other sources of bleeding. We will start IV ppi, octreotide as well as IV ceftriaxone overnight. IV ceftriaxonecan likely be discontinued overnight if we confirm he does not have liver cirrhosis He has acute encephalopathy that is likely toxic with an ammonia level of 114. We will continue to trend his mental state and prescribed lactulose enema. CT head has ruled out a structural etiology andthere was no reversible etiology noted on his lab work. Plan: ??? Initiate IV PPI, octreotide as well as IV ceftriaxone. IV ceftriaxone can likely be discontinuedin the morning if we confirm he does not have liver cirrhosis ??? Obtain CK ??? Lactulose titrated to 3-4 bowel motions per day ??? 2 large bore cannulas 18 gauge a higher ??? NPO overnight with a plan for EGD ??? Type and screen ??? Trend Hb overnight ??? Holding home apixaban Chronic Problems: # Hyperlipidemia ?? Atorvastatin 40 mg #Type 2 diabetes ?? Holding home Linagliptin 5 mg p.o. once a day ?? Initiate insulin sliding scale #Hypertension ?? Holding home Lisinopril-hydrochlorothiazide (10-12.5 mg once a day) # Gastroesophageal reflux disease ?? IV Pantoprazole 40 mg b.i.d. Diet: general diet Tubes/lines: PIV VTE prophylaxis: holding in setting of bleed Code status: No Order Disposition: Home Mobility: BMAT Level 4 (Able to stand and walk) Please TEXT PAGE GI-A with any Questions COREMAKER documented in this encounter Procedure Notes Enoch Steven M.D. - 02/12/2021 4:24 PM CSTAssociated Order(s): Critical Care Procedure Critical Care Performed by: Enoch Steven M.D. Authorized by: Enoch Steven M.D. Critical care provider statement: Critical care total time (minutes): 30 Critical care was necessary to treat or prevent imminent or life-threatening deterioration of the following conditions: LAWN MOWER failure or compromise Critical care was time spent personally by me on the following activities: Development of treatment plan with patient or surrogate, obtaining history from patient or surrogate, ordering and performing treatments and interventions, ordering and review of laboratory studies, re-evaluation of patient's condition and examination of patient Enoch Steven M.D. 02/12/21 1624 COREMAKER documented in this encounter Nursing Notes Yamileth Dos Santos R.N. - 02/16/2021 4:55 PM CST Shift Goals: Goals: Patient will remain vitally stable in be able to DC during shift. Identify possible barriers to meeting goals/advancing plan of care: None End of Shift Summary: Patient received last dose of antibiotic prior to discharge. All PIV were removed and education was completed to patient and and all questions were answered. Patient left unit without escort. RN will continue to monitor for any changes. Last set of vitals: Vitals: 02/16/21 1526 BP: 139/88 Pulse: 81 Resp: 14 Temp: 36.7 ??C SpO2: 99% COREMAKER Margo Zepeda R.N. - 02/15/2021 6:25 AM CST Problem: PAIN - ADULT Goal: PT VERBALIZES/DEMONSTRATES ADEQUATE COMFORT LEVEL OR BASELINE Outcome: Progressing Note: The patient has not required any pain medication this shift. Problem: INFECTION - ADULT Goal: Absence of infection during hospitalization Outcome: Progressing Note: The patient has remained afebrile and vitally stable overnight. Problem: SAFETY ADULT Goal: Maintain a safe environment Outcome: Progressing Problem: SAFETY ADULT - RISK FOR FALL AND OR FALL INJURY Goal: Patient remains free from fall/fall injury Outcome: Progressing Shift Goals: Clinical Goals for the Shift: For the patient to be able to sleep for at least 4 hours. Identify possible barriers to meeting goals/advancing plan of care: hospital environment End of Shift Summary: The patient was able to sleep for over 5 hours overnight. The patient expressed concern about only having one bowel movement on after taking lactulose. The patient was vitally stable overnight. The patient already went for a walk in the hallway this morning and is feeling better. COREMAKER Jennifer Dietrich R.N. - 02/14/2021 2:39 PM CST Shift Goals: Clinical Goals for the Shift: Patient will ambulate in the halls at least twice during the shift. Identify possible barriers to meeting goals/advancing plan of care: N/A End of Shift Summary: Goal met. Patient ambulated in the room and in the hallway during the shift. Patient went for a long walk with his in the morning and afternoon. Patient denied any dizziness or weakness, and he ambulated well with supervision. He had one stool in the afternoon, with no signsof blood. No other signs of blood were noted, and vitals remained stable. COREMAKER Margo Zepeda R.N. - 02/14/2021 6:45 AM CST Problem: PAIN - ADULT Goal: PT VERBALIZES/DEMONSTRATES ADEQUATE COMFORT LEVEL OR BASELINE Outcome: Progressing Note: The patient did not require any pain medications this shift. Problem: INFECTION - ADULT Goal: Absence of infection during hospitalization Outcome: Progressing Note: The patient is currently being given IV antibiotics daily. The patient has been afebrile and vitally stable. Problem: SAFETY ADULT Goal: Maintain a safe environment Outcome: Progressing Problem: SAFETY ADULT - RISK FOR FALL AND OR FALL INJURY Goal: Patient remains free from fall/fall injury Outcome: Progressing Note: The patient remained safe and free from falls/injury. The patient was able to safely ambulate in the room. Shift Goals: Clinical Goals for the Shift: For the patient to remain safe and free from falls. For the patient toget at least 4 hours of sleep overnight. Identify possible barriers to meeting goals/advancing plan of care: hospital environment End of Shift Summary: The patient was able to sleep for the majority of the night. The patient was vitally stable and afebrile. The patient reports having 1 soft formed brown stool overnight. The patient has been voiding since getting the urinary catheter out, but did not save the urine overnight. Thepatient was alert and oriented. COREMAKER Alexandria Terry R.N., MartaRSarah. - 02/12/2021 10:11 PM CST Shift Goals: Pt will remain hemodynamically stable Identify possible barriers to meeting goals/advancing plan of care: GI bleed End of Shift Summary: vital signs have remained stable and WNL throughout this shift No outward signs of GI bleeding noted --no emesis Stool miguel/yellow colored Mentation improving late this pm Will continue to monitor closely COREMAKER documented in this encounter ED Notes Enoch Steven M.D. - 02/12/2021 12:03 PM CST SUBJECTIVE CHIEF COMPLAINT/REASON FOR VISIT Altered Mental Status HISTORY OF PRESENT ILLNESS The patient is a 60-year-old male, with a history of metastatic pancreatic neuroendocrine tumor withmetastases to the liver and intra-abdominal lymph nodes status Whipple pancreaticoduodenectomy with SMV resection and portal vein reconstruction (11/06/2016) complicated by post-operative wound infection requiring wound VAC, status post portal vein stenting and TIPS procedure (12/17/2019), status post 2rounds of PRRT (Lutathera, 08/2020), status post recent splenic embolization (01/10/2021), receiving lanreotide injections monthly, as well as a history of portal hypertension with esophageal varices, prior GI bleed, right inguinal hernia repair x2, status post ventral hernia repair with mesh (11/2019),hypertension, hyperlipidemia, DMII, and GERD, who presents to the Emergency Department via air ambulance for evaluation of altered mental status and concern for GI bleed. History is limited by the patient's altered mental status. His arrived at the ED shortly after he did and was able to provide some history. Unfortunately, we have somewhat limited medical history,as well, because he has not received care through [facility] before. The above history was obtained through chart review of Care Everywhere and scanned files under the Media tab. Per the patient's , he has been acting a little strangely for the last few days. He has also been moving from bed to bed, so she has not seen him consistently. She says she saw him early this morning at about 0100, at which time she said karley to him. She did not see him again until about 1100, when she went to get him and had a hard time waking him up. When she turned on the lights, she saw he was covered in bright red bloody vomit. At that point, she called 911. He was subsequently transferred here to the [facility] ED via helicopter. The flight team states that en route, the patient was slightly hypertensive, but otherwise vitally stable. He did have an episode of hematemesis during the flight, estimated to be at least 100 cc in volume. He remained altered; he would respond to voice and moved whenever touched, but never spoke. They tried multiple times to establish IV access but were unsuccessful because he would move too much whenever they tried. Of note, the patient is supposed to be on Eliquis. His says she knows he took his Eliquis at about 1100 yesterday morning, but she suspects that he has not really been taking his medications recently. History provided by: EMS personnel and medical records History limited by: Mental status change REVIEW OF SYSTEMS Unable to perform ROS: Mental status change Gastrointestinal: Positive for hematemesis. OBJECTIVE Initial Vitals Temperature Pulse Rate Heart Rate Resp Rate Blood Pressure SpO2 02/12/21 1302 02/12/21 1230 02/12/21 1230 02/12/21 1230 02/12/21 1230 02/12/21 1230 36.2 ??C 83 85 14 (!) 158/96 91 % Pain Score -- PHYSICAL EXAMINATION Constitutional: Nursing note and vitals reviewed. HENT: Protecting his airway, active swallowing noted. No gurgling sounds. No evidence of trauma above the clavicles. Neck: Neck supple. Cardiovascular: Normal rate. Pulmonary/Chest: Effort normal. Abdominal: Soft. exhibits no distension. There is no guarding. Rectal exam shows guaiac negative stool. Large midline scar, no guarding or distension. Rectally, there is some miguel colored stool that is hemoccult negative. Musculoskeletal: Cervical back: Neck supple. Comments: Complete exposure shows no evidence of significant trauma. Neurological: GCS eye subscore is 3. GCS verbal subscore is 2. GCS motor subscore is 5. Skin: Skin is warm. Old bruise on anterior thigh. ASSESSMENT/PLAN IMPRESSION AND PLAN 60-year-old male with past medical history including metastatic pancreatic neuroendocrine tumor status post 2 rounds of PRRT, splenic embolization in December 2020, TIPS and portal vein stenting in 12/17who presents brought in by flight EMS for evaluation of altered mental status and hematemesis. GCS is 10 with E3, V2, and M5. He is spontaneously swallowing, and he is protecting his airway at this time. There is no history of cirrhosis, and we will initiate treatment with octreotide given his historyof esophageal varices although he has had a TIPS as well as Protonix. He does not take any NSAIDs. Hemoccult is negative. There is no gross abdominal distention or apparent tenderness on exam. We will obtain head CT to evaluate for any evidence of metastasis as well as CT of his abdomen and pelvis with contrast. VBG is reassuring with a normal pH and hematocrit of 36%. Lactate is 4.1, he is borderline hypertensive here, there is no history suggestive of infectious etiology, and I will defer any fluid administration in case he has an esophageal bleed at this time that is hemostatic. Ammonia is elevated and this may be contributing to his altered mental status. Head CT showed no acute findings. Repeat lactate is 2.6. Patient required 2.5mg of midazolam for CT scan due to movements.CT abdomen showed urinary distension with catheter placed with greater than 1000cc of output. He continued to be hemodynamically stable in the emergency department and protecting his airway, and I feelthat he is safe for admission to the floor. I discussed his care with the GI bleed Team to alert them of his likely future need further assistance. Final Diagnoses: as of 02/12/21 1625 Hematemesis Change Mental Status Hyperammonemia (HCC) Hemorrhage Gastrointestinal Care Handoff Row Name 02/12/21 1534 Care Handoff Type of Handoff Admission handoff I personally performed the services described in this documentation, as scribed in my presence, and it is both accurate and complete. Enoch Steven M.D. 02/12/21 1623 Enoch Steven M.D. 02/12/21 1625 COREMAKER documented in this encounter Miscellaneous Notes Documentation Clarification - Chandni James M.D. - 02/16/2021 5:28 PM CST PROVIDER RESPONSE TEXT: To clarify, the appropriate diagnosis supported by the clinical indicators: Type 2 Diabetes Mellitus with Hyperglycemia <LCI> QUERY TEXT: DOCUMENTATION CLARIFICATION REQUEST Please clarify/specify the appropriate diagnosis supported in the clinical indicators below. [[Type 2 Diabetes Mellitus with Hyperglycemia]] Other (explain) Clinically unable to determine (explain) Clinical Indicators/Risk Factors/Treatment: 02/12- Glucose, serum- 242 02/12- Glucose PCOT- 97 02/13- Glucose PCOT- 170 02/14- Glucose, serum-116, Glucose PCOT 254 02/15- Glucose PCOT- 210 02/16- Glucose, serum-150, Glucose PCOT 152 02/13- Novolog Insulin SQ 2 units 02/14- Novolog Insulin SQ 6 units 02/15- Novolog Insulin SQ 4 units, 2 units, 2 units 02/16- Novolog Insulin SQ 2 units Risk Factors: Metastatic Pancreatic Neuroendocrine Tumor to Liver and Intra- Abdominal Lymph Nodes, s/p Whipple (2017), Type 2 DM, HTN, Hyperlipidemia Please contact me if you have questions. Thank you, Christie Eagle RN, TOOL AND DIE ASSEMBLER,CCDS Clinical Documentation Socket Puller Query created by: Christie Eagle RN, TOOL AND DIE ASSEMBLER,CCDS 02/18/2021 12:50 PM </LCI> COREMAKER Hospital Course - Chandni James M.D. - 02/12/2021 8:41 PM CST Son Rouse is a 60 y.o. male admitted with hematemesis and altered mental status. Prior to Presentation: The was at bedside and provided the collateral history. She reports he was in his usual state of health up until the morning of admission when the patient woke up confused and was covered with bright red blood which prompted her to seek emergency care. On route to the ED, the patient was hemodynamically stable but had 100 cc of hematemesis. The patient was on apixaban for portal vein thrombosis prophylaxis after portal vein stenting with his last dose 10:30 a.m. the day before admission.. 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 for portal vein dose Right inguinal hernia repair x2 Ventral hernia repair with mesh in November 2019 Hyperlipidemia Atorvastatin 40 mg Type 2 diabetes Linagliptin 5 mg p.o. once a day Hypertension Lisinopril-hydrochlorothiazide (10-12.5 mg once a day) Gastroesophageal reflux disease Pantoprazole 40 mg Emergency Department: In the ED, he had a GCS of 10 but was protecting his airway. He was found to have urinary retention and a urinary catheter was placed with 1 L of output. He had mild anemia with a hemoglobin of 12.8 but otherwise his BMP was unremarkable and had a normal kidney function. CT head negative for intracranial hemorrhage. CT abdomen pelvis revealed prominent esophageal varices. Medical Floor: On arrival to the floor his GCS improved to 8 and he was sleeping in bed but arousable to painful stimuli. Overnight there were no acute events and on waking up in the morning he was alert orientated to time place and person and is mentation and cleared. His hemoglobin was stable and we proceeded withan EGD which revealed esophageal varices with stigmata of recent bleeding which were banded. He was started on IV octreotide for 72 hours and this was discontinued on 02/15 and he remained hemodynamically stable thereafter. He was initially started on IV PPI which was transition to PO and he should continue this after discharge. He received 5 days of antibiotics (Ceftriaxone) for SBP prophylaxis. He likely had hepatic encephalopathy on admission and he likely has underlying primary liver parenchymal disease of unclear etiology which will need further outpatient evaluation by Gastroenterology. He did not have recurrence of his GI bleeding. Hb remained stable at 11 on discharge. He understands the need for follow-up EGD with probable banding in 3-4 weeks and will try to arrange that in [place]. If he cannot do that he will return to [facility]. He also understands that he will need workup for potential underlying liver disease.The patient prefers this to be done in [place]. COREMAKER documented in this encounter Plan of Treatment Not on filedocumented as of this encounter Procedures Procedure Name Priority Date/Time Associated Comments Diagnosis GLUCOSE POCT, B Routine 02/16/2021 1:59 Results f or this PM TUBE COREMAKER procedure are i n the results section. GLUCOSE POCT, B Routine 02/16/2021 8:36 Results f or this AM TUBE COREMAKER procedure are i n the results section. HEMOGLOBIN, B Routine 02/16/2021 4:49 Results for this AM TUBE COREMAKER procedure are i n the results section. BASIC METABOLIC Routine 02/16/2021 4:49 Results f or this PANEL, S/P AM TUBE COREMAKER procedure are i n the results section. GLUCOSE POCT, B Routine 02/15/2021 9:34 Results f or this PM TUBE COREMAKER procedure are i n the results section. GLUCOSE POCT, B Routine 02/15/2021 6:09 Results f or this PM TUBE COREMAKER procedure are i n the results section. GLUCOSE POCT, B Routine 02/15/2021 12:21 Results for this PM TUBE COREMAKER procedure are i n the results section. GLUCOSE POCT, B Routine 02/15/2021 7:52 Results f or this AM TUBE COREMAKER procedure are i n the results section. CBC WITHOUT STAT 02/15/2021 7:28 Results for this DIFFERENTIAL, B AM TUBE COREMAKER procedure ar e in the results section. GLUCOSE POCT, B Routine 02/14/2021 8:52 Results f or this PM TUBE COREMAKER procedure are i n the results section. GLUCOSE POCT, B Routine 02/14/2021 5:56 Results f or this PM TUBE COREMAKER procedure are i n the results section. GLUCOSE POCT, B Routine 02/14/2021 1:47 Results f or this PM TUBE COREMAKER procedure are i n the results section. GLUCOSE POCT, B Routine 02/14/2021 1:04 Results f or this PM TUBE COREMAKER procedure are i n the results section. GLUCOSE POCT, B Routine 02/14/2021 7:41 Results f or this AM TUBE COREMAKER procedure are i n the results section. CBC WITH Timed 02/14/2021 7:32 Results for this DIFFERENTIAL, B AM TUBE COREMAKER procedure ar e in the results section. BASIC METABOLIC Timed 02/14/2021 7:32 Results f or this PANEL, S/P AM TUBE COREMAKER procedure are i n the results section. GLUCOSE POCT, B Routine 02/13/2021 11:27 Results for this PM TUBE COREMAKER procedure are i n the results section. US LIVER DOPPLER RAD - Routine 02/13/2021 5:34 Results for this (most inpatients PM TUBE COREMAKER procedure a re in and all the results outpatients) section. GLUCOSE POCT, B Routine 02/13/2021 4:41 Results f or this PM TUBE COREMAKER procedure are i n the results section. GLUCOSE POCT, B Routine 02/13/2021 1:01 Results f or this PM TUBE COREMAKER procedure are i n the results section. UPPER GI ENDOSCOPY Routine 02/13/2021 10:27 Resul ts for this AM TUBE COREMAKER procedure are i n the results section. EGD Routine 02/13/2021 10:27 (ESOPHAGEALGASTRODU AM TUBE COREMAKER ODENOSCOPY) GLUCOSE POCT, B Routine 02/13/2021 7:03 Results f or this AM TUBE COREMAKER procedure are i n the results section. CBC WITHOUT Routine 02/13/2021 4:33 Results for this DIFFERENTIAL, B AM TUBE COREMAKER procedure ar e in the results section. BASIC METABOLIC Routine 02/13/2021 4:33 Results f or this PANEL, S/P AM TUBE COREMAKER procedure are i n the results section. GLUCOSE POCT, B Routine 02/12/2021 10:01 Results for this PM TUBE COREMAKER procedure are i n the results section. HEMOGLOBIN, B STAT 02/12/2021 8:47 Results for this PM TUBE COREMAKER procedure are i n the results section. LACTATE, B/P STAT 02/12/2021 8:47 Results for this PM TUBE COREMAKER procedure are i n the results section. CREATINE KINASE STAT 02/12/2021 8:47 Results f or this (CK), S PM TUBE COREMAKER procedure are i n the results section. CRITICAL CARE Routine 02/12/2021 4:24 Results for this PM TUBE COREMAKER procedure are i n the results section. LACTATE, POCT, B Routine 02/12/2021 2:44 Results for this PM TUBE COREMAKER procedure are i n the results section. LACTATE, POCT, B STAT 02/12/2021 2:44 Results for this PM TUBE COREMAKER procedure are i n the results section. CT ABDOMEN PELVIS RAD - Semiurgent 02/12/2021 2:05 Res ults for this WITH IV CONTRAST (Fast; most ED PM TUBE COREMAKER procedure are in patients; some the results inpatients) section. SARS CORONAVIRUS 2, STAT 02/12/2021 1:58 Resul ts for this RNA, RAPID POC, V PM TUBE COREMAKER procedure are in the results section. CT HEAD WITHOUT IV RAD - Semiurgent 02/12/2021 1:40 Re sults for this CONTRAST (Fast; most ED PM TUBE COREMAKER procedure are in patients; some the results inpatients) section. AMMONIA STAT 02/12/2021 1:10 Results for this PM TUBE COREMAKER procedure are i n the results section. DX CHEST PORTABLE 1 RAD - Semiurgent 02/12/2021 12:55 Results for this VIEW (Fast; most ED PM TUBE COREMAKER procedure are in patients; some the results inpatients) section. ECG STAT 02/12/2021 12:22 Results for this PM TUBE COREMAKER procedure are i n the results section. LACTATE, POCT, B Routine 02/12/2021 12:21 Results for this PM TUBE COREMAKER procedure are i n the results section. BLOOD GAS, POCT, B STAT 02/12/2021 12:19 Resul ts for this PM TUBE COREMAKER procedure are i n the results section. LACTATE, POCT, B STAT 02/12/2021 12:19 Results for this PM TUBE COREMAKER procedure are i n the results section. VBG & LYTES CG8+, Routine 02/12/2021 12:17 Result s for this POCT, B PM TUBE COREMAKER procedure are i n the results section. ETHANOL, S STAT 02/12/2021 12:17 Results for this PM TUBE COREMAKER procedure are i n the results section. HEPATIC FUNCTION STAT 02/12/2021 12:17 Results for this PANEL, S PM TUBE COREMAKER procedure are i n the results section. PROTHROMBIN TIME STAT 02/12/2021 12:17 Results for this (PT), P PM TUBE COREMAKER procedure are i n the results section. CBC WITH STAT 02/12/2021 12:17 Results for this DIFFERENTIAL, B PM TUBE COREMAKER procedure ar e in the results section. TYPE AND SCREEN STAT 02/12/2021 12:17 Results for this PM TUBE COREMAKER procedure are i n the results section. LIPASE, S/P STAT 02/12/2021 12:17 Results for this PM TUBE COREMAKER procedure are i n the results section. BASIC METABOLIC STAT 02/12/2021 12:17 Results for this PANEL, S/P PM TUBE COREMAKER procedure are i n the results section. documented in this encounter Results Glucose, POCT (02/16/2021 1:59 PM TUBE COREMAKER) athologist Signature Glucose, POCT, 96 70 - 140 02/16/2021 PCLX B mg/dL 2:10 PM TUBE COREMAKER Specimen Anatomical Collection Method Collection Time Receive d Time (Source) Location / / Volume Laterality Blood 02/16/2021 1:59 PM 2:10 TUBE COREMAKER PM TUBE COREMAKER Unknown Provider LAB POCT ORDERABLES-MANUAL Performing Organization Address City/[facility] Phon e Number POC [facility] [address] [place] [address] POC [address] (ABNORMAL) Glucose, POCT (02/16/2021 8:36 AM TUBE COREMAKER) Analysis Performed At Patho logist Time Signature Glucose, POCT, 152 (H) 70 - 140 02/16/2021 PCLX B mg/dL 8:39 AM TUBE COREMAKER Site Capillary 02/16/2021 PCLX 8:39 AM TUBE COREMAKER Specimen Anatomical Collection Method Collection Time Receive d Time (Source) Location / / Volume Laterality Blood 02/16/2021 8:36 AM 1 8:40 TUBE COREMAKER AM TUBE COREMAKER Unknown Provider LAB POCT ORDERABLES-MANUAL Performing Organization Address City/[facility] Phon e Number POC [facility] [address] [place] [id number] PCL[facility] [address] POC [address] (ABNORMAL) Basic Metabolic Panel (02/16/2021 4:49 AM TUBE COREMAKER) athologist Signature Potassium, S 3.8 3.6 - 5.2 02/16/2021 DTL mmol/L 5:47 AM TUBE COREMAKER Sodium, S 139 135 - 145 02/16/2021 DTL mmol/L 5:47 AM TUBE COREMAKER Chloride, S 103 98 - 107 02/16/2021 DTL mmol/L 5:47 AM TUBE COREMAKER Bicarbonate, S 27 22 - 29 02/16/2021 DTL mmol/L 5:47 AM TUBE COREMAKER Anion Gap 9 7 - 15 02/16/2021 DTL 5:47 AM TUBE COREMAKER BUN (Blood Urea 12 8 - 24 02/16/2021 DTL Nitrogen), S mg/dL 5:47 AM TUBE COREMAKER Creatinine 0.85 0.74 - 02/16/2021 DTL 1.35 mg/dL 5:47 AM TUBE COREMAKER eGFR-Non >90 >=60 02/16/2021 DTL Black/ mL/min/BSA 5:47 AM TUBE COREMAKER Scottish Comment: ----ADDITIONAL INFORMATION---- Estimated GFR calculated using the 2009 CKD_EPI creatinine equation. eGFR-Black/ >90 >=60 mL/min/BSA 2020 5:47 AM TUBE COREMAKER DTL Comment: ----ADDITIONAL INFORMATION---- Estimated GFR calculated using the 2009 CKD_EPI creatinine equation. Calcium, Total, S 9.0 8.6 - 10.0 mg/dL 02/16/2021 5:47 AM TUBE COREMAKER DTL Glucose, S 150 (H) 70 - 140 mg/dL 02/16/2021 5:47 AM TUBE COREMAKER D TL Specimen Anatomical Collection Method Collection Time Receive d Time (Source) Location / / Volume Laterality Blood (Blood, 02/16/2021 4:49 AM 02/17/20 5:25 Venous) TUBE COREMAKER AM TUBE COREMAKER Tay De JesusSJordan LAB BLOOD ADD-ON Performing Organization Address City/State/ZIP Code Phon e Number [facility] - [address] [place], [place] [address] [facility] [place] [address] Laboratories-[facility] [address] (ABNORMAL) Hemoglobin (02/16/2021 4:49 AM TUBE COREMAKER) P athologist Signature Hemoglobin 11.5 (L) 13.2 - 16.6 02/16/2021 DTL g/dL 5:14 AM TUBE COREMAKER Specimen Anatomical Collection Method Collection Time Receive d Time (Source) Location / / Volume Laterality Blood (Blood, 02/16/2021 4:49 AM 02/17/20 5:07 Venous) TUBE COREMAKER AM TUBE COREMAKER Tay Wilson LAB BLOOD ADD-ON Performing Organization Address City/[facility]/ZIP Code Phon e Number [facility] - [address] [place], [place] [address] [facility] [place] [address] [facility] [address] (ABNORMAL) Glucose, POCT (02/15/2021 9:34 PM TUBE COREMAKER) P athologist Signature Glucose, POCT, 186 (H) 70 - 140 02/15/2021 PCLX B mg/dL 9:55 PM TUBE COREMAKER Specimen Anatomical Collection Method Collection Time Receive d Time (Source) Location / / Volume Laterality Blood 02/15/2021 9:34 PM 9:55 TUBE COREMAKER PM TUBE COREMAKER Unknown Provider LAB POCT ORDERABLES-MANUAL Performing Organization Address City/[facility] Phon e Number [facility] [address] [place] [address] [place] [address] [place] [facility] [address] [facility] (ABNORMAL) Glucose, POCT (02/15/2021 6:09 PM TUBE COREMAKER) Analysis Performed At Patho logist Time Signature Glucose, POCT, 169 (H) 70 - 140 02/15/2021 PCLX B mg/dL 6:13 PM TUBE COREMAKER Site Capillary 02/15/2021 PCLX 6:13 PM TUBE COREMAKER Last Intake 3-4 hours 02/15/2021 PCLX 6:13 PM TUBE COREMAKER Specimen Anatomical Collection Method Collection Time Receive d Time (Source) Location / / Volume Laterality Blood 02/15/2021 6:09 PM 6:13 TUBE COREMAKER PM TUBE COREMAKER Unknown Provider LAB POCT ORDERABLES-MANUAL Performing Organization Address City/[facility] Phon e Number [facility] [address] [place] [address] [place] [address] [place] [facility] [address] [facility] (ABNORMAL) Glucose, POCT (02/15/2021 12:21 PM TUBE COREMAKER) Analysis Performed At Patho logist Time Signature Glucose, POCT, 153 (H) 70 - 140 02/15/2021 PCLX B mg/dL 12:31 PM TUBE COREMAKER Site Capillary 02/15/2021 PCLX 12:31 PM TUBE COREMAKER Last Intake 3-4 hours 02/15/2021 PCLX 12:31 PM TUBE COREMAKER Specimen Anatomical Collection Method Collection Time Receive d Time (Source) Location / / Volume Laterality Blood 02/15/2021 12:21 02/15/2021 PM TUBE COREMAKER 12:31 PM TUBE COREMAKER Unknown Provider LAB POCT ORDERABLES-MANUAL Performing Organization Address City/[facility] Phon e Number POC [facility] [address] [place] [address] [place] [phone] [place] [address] POC [address] [facility] (ABNORMAL) Glucose, POCT (02/15/2021 7:52 AM TUBE COREMAKER) Analysis Performed At Patho logist Time Signature Glucose, POCT, 210 (H) 70 - 140 02/15/2021 PCLX B mg/dL 7:57 AM TUBE COREMAKER Site Capillary 02/15/2021 PCLX 7:57 AM TUBE COREMAKER Specimen Anatomical Collection Method Collection Time Receive d Time (Source) Location / / Volume Laterality Blood 02/15/2021 7:52 AM 7:57 TUBE COREMAKER AM TUBE COREMAKER Unknown Provider LAB POCT ORDERABLES-MANUAL Performing Organization Address City/[facility] Phon e Number POC [facility] [address] [place] [address] [place] [address] [place] [facility] [address] (ABNORMAL) CBC without Differential (02/15/2021 7:28 AM TUBE COREMAKER) Patholo gist Method Time Signature Hemoglobin 11.0 (L) 13.2 - 02/15/2021 STMA 16.6 g/dL 7:38 AM TUBE COREMAKER Hematocrit 31.9 (L) 38.3 - 02/15/2021 STMA 48.6 % 7:38 AM TUBE COREMAKER Erythrocytes 3.72 (L) 4.35 - 02/15/2021 STMA 5.65 7:38 AM TUBE COREMAKER x10(12)/L MCV 85.8 78.2 - 02/15/2021 STMA 97.9 fL 7:38 AM TUBE COREMAKER RBC Distrib Width 15.8 (H) 11.8 - 02/15/2021 STMA 14.5 % 7:38 AM TUBE COREMAKER Platelet Count 75 (L) 135 - 317 02/15/2021 STMA x10(9)/L 7:38 AM TUBE COREMAKER Leukocytes 5.6 3.4 - 9.6 02/15/2021 STMA x10(9)/L 7:38 AM TUBE COREMAKER Specimen Anatomical Collection Method Collection Time Receive d Time (Source) Location / / Volume Laterality Blood (Blood, 02/15/2021 7:28 AM 02/16/20 7:36 Venous) TUBE COREMAKER AM TUBE COREMAKER Tay Wilson LAB BLOOD ADD-ON Performing Organization Address City/[facility] Phon e Number [facility] - [address] [place], [place] [address] [place] [address] [facility] [address] (ABNORMAL) Glucose, POCT (02/14/2021 8:52 PM TUBE COREMAKER) Analysis Performed At Patho logist Time Signature Glucose, POCT, 200 (H) 70 - 140 02/14/2021 PCLX B mg/dL 8:58 PM TUBE COREMAKER Site Capillary 02/14/2021 PCLX 8:58 PM TUBE COREMAKER Specimen Anatomical Collection Method Collection Time Receive d Time (Source) Location / / Volume Laterality Blood 02/14/2021 8:52 PM 1 8:58 TUBE COREMAKER PM TUBE COREMAKER Unknown Provider LAB POCT ORDERABLES-MANUAL Performing Organization Address City/[facility] Phon e Number POC [facility] [address] [place] [address] [place] [address] [place] [facility] [address] Glucose, POCT (02/14/2021 5:56 PM TUBE COREMAKER) Analysis Performed At Patho logist Time Signature Glucose, POCT, 139 70 - 140 02/14/2021 PCLX B mg/dL 5:58 PM TUBE COREMAKER Last Intake 3-4 hours 02/14/2021 PCLX 5:58 PM TUBE COREMAKER Specimen Anatomical Collection Method Collection Time Receive d Time (Source) Location / / Volume Laterality Blood 02/14/2021 5:56 PM 1 5:58 TUBE COREMAKER PM TUBE COREMAKER Unknown Provider LAB POCT ORDERABLES-MANUAL Performing Organization Address City/State/ZIP Code Phon e Number POC [facility] [address] [place] [address] [place] [address] [place] [facility] [address] [facility] (ABNORMAL) Glucose, POCT (02/14/2021 1:47 PM TUBE COREMAKER) Analysis Performed At Patho logist Time Signature Glucose, POCT, 229 (H) 70 - 140 02/14/2021 PCLX B mg/dL 1:49 PM TUBE COREMAKER Site Capillary 02/14/2021 PCLX 1:49 PM TUBE COREMAKER Specimen Anatomical Collection Method Collection Time Receive d Time (Source) Location / / Volume Laterality Blood 02/14/2021 1:47 PM 1 1:49 TUBE COREMAKER PM TUBE COREMAKER Unknown Provider LAB POCT ORDERABLES-MANUAL Performing Organization Address City/[facility] Phon e Number POC [facility] [address] [place] [address] [place] [address] [place] [facility] [address] [facility] (ABNORMAL) Glucose, POCT (02/14/2021 1:04 PM TUBE COREMAKER) Analysis Performed At Patho logist Time Signature Glucose, POCT, 254 (H) 70 - 140 02/14/2021 PCLX B mg/dL 1:49 PM TUBE COREMAKER Site Capillary 02/14/2021 PCLX 1:49 PM TUBE COREMAKER Specimen Anatomical Collection Method Collection Time Receive d Time (Source) Location / / Volume Laterality Blood 02/14/2021 1:04 PM 1 1:49 TUBE COREMAKER PM TUBE COREMAKER Unknown Provider LAB POCT ORDERABLES-MANUAL Performing Organization Address City/[facility] Phon e Number POC [facility] [address] [place] [address] [place] [address] [place] [facility] [address] [facility] Glucose, POCT (02/14/2021 7:41 AM TUBE COREMAKER) Analysis Performed At Patho logist Time Signature Glucose, POCT, 120 70 - 140 02/14/2021 PCLX B mg/dL 7:44 AM TUBE COREMAKER Site Capillary 02/14/2021 PCLX 7:44 AM TUBE COREMAKER Specimen Anatomical Collection Method Collection Time Receive d Time (Source) Location / / Volume Laterality Blood 02/14/2021 7:41 AM 7:45 TUBE COREMAKER AM TUBE COREMAKER Unknown Provider LAB POCT ORDERABLES-MANUAL Performing Organization Address City/State/ZIP Code Phon e Number POC [facility] [address] [place] [address] PCLX [facility] [place] [address] [place] [facility] [address] (ABNORMAL) Basic Metabolic Panel (02/14/2021 7:32 AM TUBE COREMAKER) P athologist Signature Potassium, S 3.8 3.6 - 5.2 02/14/2021 DTL mmol/L 11:00 AM TUBE COREMAKER Sodium, S 141 135 - 145 02/14/2021 DTL mmol/L 11:00 AM TUBE COREMAKER Chloride, S 108 (H) 98 - 107 02/14/2021 DTL mmol/L 11:00 AM TUBE COREMAKER Bicarbonate, S 24 22 - 29 02/14/2021 DTL mmol/L 11:00 AM TUBE COREMAKER Anion Gap 9 7 - 15 02/14/2021 DTL 11:00 AM TUBE COREMAKER BUN (Blood Urea 18 8 - 24 02/14/2021 DTL Nitrogen), S mg/dL 11:00 AM TUBE COREMAKER Creatinine 0.93 0.74 - 02/14/2021 DTL 1.35 mg/dL 11:00 AM TUBE COREMAKER eGFR-Non 90 >=60 02/14/2021 DTL Black/ mL/min/BSA 11:00 AM TUBE COREMAKER Scottish Comment: ----ADDITIONAL INFORMATION---- Estimated GFR calculated using the 2009 CKD_EPI creatinine equation. eGFR-Black/ >90 >=60 mL/min/BSA 2020 11:00 AM TUBE COREMAKER DTL Comment: ----ADDITIONAL INFORMATION---- Estimated GFR calculated using the 2009 CKD_EPI creatinine equation. Calcium, Total, S 8.7 8.6 - 10.0 mg/dL 02/14/2021 11:0 0 AM TUBE COREMAKER DTL Glucose, S 116 70 - 140 mg/dL 02/14/2021 11:00 AM TUBE COREMAKER DTL Specimen Anatomical Collection Method Collection Time Receive d Time (Source) Location / / Volume Laterality Blood (Blood, 02/14/2021 7:32 AM 02/15/20 21 Venous) TUBE COREMAKER 10:16 AM TUBE COREMAKER Judith Dan M.D. LAB BLOOD ADD-ON Performing Organization Address City/State/ZIP Code Phon e Number [facility] - [address] [place], [place] [address] [facility] [place] [place] [address] Laboratories-[facility] [address] [facility] (ABNORMAL) CBC with Differential, Blood (02/14/2021 7:32 AM TUBE COREMAKER) [facility] gist Method Time Signature Hemoglobin 10.8 (L) 13.2 - 02/14/2021 DTL 16.6 g/dL 9:06 AM TUBE COREMAKER Hematocrit 32.2 (L) 38.3 - 02/14/2021 DTL 48.6 % 9:06 AM TUBE COREMAKER Erythrocytes 3.71 (L) 4.35 - 02/14/2021 DTL 5.65 9:06 AM TUBE COREMAKER x10(12)/L MCV 86.8 78.2 - 02/14/2021 DTL 97.9 fL 9:06 AM TUBE COREMAKER RBC Distrib Width 16.3 (H) 11.8 - 02/14/2021 DTL 14.5 % 9:06 AM TUBE COREMAKER Platelet Count 83 (L) 135 - 317 02/14/2021 DTL x10(9)/L 9:06 AM TUBE COREMAKER Leukocytes 4.9 3.4 - 9.6 02/14/2021 DTL x10(9)/L 9:06 AM TUBE COREMAKER Neutrophils 3.09 1.56 - 02/14/2021 DTL 6.45 9:06 AM TUBE COREMAKER x10(9)/L Lymphocytes 0.73 (L) 0.95 - 02/14/2021 DTL 3.07 9:06 AM TUBE COREMAKER x10(9)/L Monocytes 0.70 0.26 - 02/14/2021 DTL 0.81 9:06 AM TUBE COREMAKER x10(9)/L Eosinophils 0.27 0.03 - 02/14/2021 DTL 0.48 9:06 AM TUBE COREMAKER x10(9)/L Basophils 0.06 0.01 - 02/14/2021 DTL 0.08 9:06 AM TUBE COREMAKER x10(9)/L Specimen Anatomical Collection Method Collection Time Receive d Time (Source) Location / / Volume Laterality Blood (Blood, 02/14/2021 7:32 AM 02/15/20 8:35 Venous) TUBE COREMAKER AM TUBE COREMAKER Judith A Ni M.D. LAB BLOOD ADD-ON Performing Organization Address City/State/ZIP Code Phon e Number [facility] - [address] [place], [place] [address] [facility] [place] [address] Laboratories[facility] [address] [facility] (ABNORMAL) Glucose, POCT (02/13/2021 11:27 PM TUBE COREMAKER) Analysis Performed At Patho logist Time Signature Glucose, POCT, 170 (H) 70 - 140 02/13/2021 PCLX B mg/dL 11:47 PM TUBE COREMAKER Site Capillary 02/13/2021 PCLX 11:47 PM TUBE COREMAKER Last Intake > 4 hours 02/13/2021 PCLX 11:47 PM TUBE COREMAKER Specimen Anatomical Collection Method Collection Time Receive d Time (Source) Location / / Volume Laterality Blood 02/13/2021 11:27 02/13/2021 PM TUBE COREMAKER 11:48 PM TUBE COREMAKER Unknown Provider LAB POCT ORDERABLES-MANUAL Performing Organization Address [facility] Phon e Number POC [facility] [address] [place] [address] [place] [address] [place] [facility] [address] [facility] US Liver Doppler (02/13/2021 5:34 PM TUBE COREMAKER) Anatomical Region Laterality Modality Abdomen, Ultrasound RST LOS, Ultrasound ARZ LOS, Ultrasound FLA N/A Ultrasound LOS Specimen (Source) Anatomical Collection Method Collection Time Re ceived Time Location / / Volume Laterality 02/13/2021 6:44 PM TUBE COREMAKER Impressions 02/14/2021 9:32 AM TUBE COREMAKER Patent TIPS shunt with retrograde flow i n the left portal vein. Narrative 02/14/2021 9:32 AM TUBE COREMAKER EXAM: US LIVER DOPPLER Exam performed with color and spectral D oppler analysis. COMPARISON: CT 02/12/2021 FINDINGS: Doppler: Hepatic veins are patent with a ntegrade flow. The main hepatic artery is patent with antegrade flow. MAXIMUM SHUNT VELOCITY: TIPS portal venous end peak velocity: 14 3 cm/s TIPS mid peak velocity: 97 cm/s TIPS hepatic venous end peak velocity: 1 12 cm/s Mid shunt diameter (TIPS): 12 mm PORTAL VEIN DIRECTION OF FLOW: Main: bidirectional. Left: retrograde. Procedure Note Karen Lees M.D. - 02/14/2021Forma tting of this note might be different from the original. EXAM: US LIVER DOPPLER Exam performed with color and spectral D oppler analysis. COMPARISON: CT 02/12/2021 FINDINGS: Doppler: Hepatic veins are patent with a ntegrade flow. The main hepatic artery is patent with antegrade flow. MAXIMUM SHUNT VELOCITY: TIPS portal venous end peak velocity: 14 3 cm/s TIPS mid peak velocity: 97 cm/s TIPS hepatic venous end peak velocity: 1 12 cm/s Mid shunt diameter (TIPS): 12 mm PORTAL VEIN DIRECTION OF FLOW: Main: bidirectional. Left: retrograde. IMPRESSION: Patent TIPS shunt with retrograde flow i n the left portal vein. Prem Calle M.D. IMG US PROCEDURES (ABNORMAL) Glucose, POCT (02/13/2021 4:41 PM TUBE COREMAKER) Analysis Performed At Patho logist Time Signature Glucose, POCT, 143 (H) 70 - 140 02/13/2021 PCLX B mg/dL 4:45 PM TUBE COREMAKER Last Intake 3-4 hours 02/13/2021 PCLX 4:45 PM TUBE COREMAKER Specimen Anatomical Collection Method Collection Time Receive d Time (Source) Location / / Volume Laterality Blood 02/13/2021 4:41 PM 1 4:45 TUBE COREMAKER PM TUBE COREMAKER Unknown Provider LAB POCT ORDERABLES-MANUAL Performing Organization Address City/State/ZIP Code Phon e Number POC [facility] [address] [place] [address] [place] [address] [place] [facility] [address] [facility] (ABNORMAL) Glucose, POCT (02/13/2021 1:01 PM TUBE COREMAKER) Analysis Performed At Patho logist Time Signature Glucose, POCT, 141 (H) 70 - 140 02/13/2021 PCLX B mg/dL 1:11 PM TUBE COREMAKER Last Intake 3-4 hours 02/13/2021 PCLX 1:11 PM TUBE COREMAKER Specimen Anatomical Collection Method Collection Time Receive d Time (Source) Location / / Volume Laterality Blood 02/13/2021 1:01 PM 1 1:11 TUBE COREMAKER PM TUBE COREMAKER Unknown Provider LAB POCT ORDERABLES-MANUAL Performing Organization Address City/State/ZIP Code Phon e Number POC [facility] [address] [place] [address] PCLX [facility] [place] [address] [place] [facility] [address] [facility] Upper GI Endoscopy (02/13/2021 10:27 AM TUBE COREMAKER) Specimen (Source) Anatomical Collection Method Collection Time Re ceived Time Location / / Volume Laterality 02/13/2021 10:27 AM TUBE COREMAKER Impressions KEALIA PROVATION - 02/13/2021 12:05 PM TUBE COREMAKER Post-op Diagnoses: ? - Large (> 5 mm) esophageal varic es with stigmata of recent bleeding. ? Banded. ? - Gastrojejunal anastomosis dionisio cterized by healthy appearing mucosa. ? - No specimens collected. Narrative KEALIA PROVATION - 02/13/2021 12:05 PM TUBE COREMAKER Paramjit 6 GI GI Patient Name: Son Rouse Date of : 1960 Age: 60 Gender: Male Procedure Date: 02/13/2021 Procedure: ? Upper GI endoscopy Providers: ? Hiram Victor MD, Terra Browning, ? NANCY S (Fellow) Referring Provider: ?Maddie-alonso Chandler Pre-op Diagnoses: ?Hematemesis Recommendation: ? - Return patient to [facility] for observation. ? - Full liquid diet today. ? - Repeat upper endoscopy in 3-4 w eeks for retreatment. ? - Consider doppler ultrasound to assess TIPS patency. Findings: ? Three columns of large (> 5 mm) v arices with stigmata of recent bleeding ? were found in the lower third of the esophagus. A fibrin plug was noted. ? Four bands were successfully plac ed with incomplete eradication of ? varices. ? 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 A gastric ? pouch with a medium size was foun d containing bile. The gastrojejunal ? anastomosis was characterized by healthy appearing mucosa. This was ? traversed. Both limbs were inspec diana with no evidence of bleeding. ? Hepaticojejunostomy was NOT ident ified. ? Exam of the jejunum was otherwise normal. Procedural Details: ? The patient was seen, evaluated, history reviewed, airway and heart-lung ? exams were performed by licensed provider and were satisfactory for ? planned level of sedation care. ? The risks, benefits and alternati ves for the procedure and sedation were ? discussed and informed consent wa s obtained. A procedural pause was ? conducted in the presence of assi sting personnel to verify the correct ? patient identity and procedure to be performed. Throughout the ? procedure, the patient's blood pr essure, pulse, and oxygen saturations ? were monitored continuously. The Gastroscope was introduced under direct ? vision through the mouth, and adv anced to the afferent and efferent ? jejunal loops. The upper GI endos copy was accomplished without ? difficulty. The patient tolerated the procedure well. Estimated Blood Loss: ?Estimated blo od loss was minimal. Complications: ? No immedia te complications. 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 pro cedure, including non-josé portions. Hiram Victor MD 02/13/2021 12:05:00 PM This report has been signed electronical ly. Number of Addenda: 0 Ikram-Ul Ramesh Wilson GI PROCEDURE ORDERABLES Performing Organization Address City/State/ZIP Code Phon e Number MAC PROVATION MAC PROVATION NA Glucose, POCT (02/13/2021 7:03 AM TUBE COREMAKER) Analysis Performed At Patho logist Time Signature Glucose, POCT, 136 70 - 140 02/13/2021 PCLX B mg/dL 7:05 AM TUBE COREMAKER Site Capillary 02/13/2021 PCLX 7:05 AM TUBE COREMAKER Last Intake 3-4 hours 02/13/2021 PCLX 7:05 AM TUBE COREMAKER Specimen Anatomical Collection Method Collection Time Receive d Time (Source) Location / / Volume Laterality Blood 02/13/2021 7:03 AM 7:05 TUBE COREMAKER AM TUBE COREMAKER Unknown Provider LAB POCT ORDERABLES-MANUAL Performing Organization Address City/State/ZIP Code Phon e Number POC [facility] [address] [place] [address] PCLX [facility] [place] [address] [place] P[place] [address] (ABNORMAL) Basic Metabolic Panel (02/13/2021 4:33 AM TUBE COREMAKER) P athologist Signature Potassium, S 4.1 3.6 - 5.2 02/13/2021 DTL mmol/L 6:00 AM TUBE COREMAKER Sodium, S 143 135 - 145 02/13/2021 DTL mmol/L 6:00 AM TUBE COREMAKER Chloride, S 108 (H) 98 - 107 02/13/2021 DTL mmol/L 6:00 AM TUBE COREMAKER Bicarbonate, S 23 22 - 29 02/13/2021 DTL mmol/L 6:00 AM TUBE COREMAKER Anion Gap 12 7 - 15 02/13/2021 DTL 6:00 AM TUBE COREMAKER BUN (Blood Urea 18 8 - 24 02/13/2021 DTL Nitrogen), S mg/dL 6:00 AM TUBE COREMAKER Creatinine 0.92 0.74 - 02/13/2021 DTL 1.35 mg/dL 6:00 AM TUBE COREMAKER eGFR-Non >90 >=60 02/13/2021 DTL Black/ mL/min/BSA 6:00 AM TUBE COREMAKER Scottish Comment: ----ADDITIONAL INFORMATION---- Estimated GFR calculated using the 2009 CKD_EPI creatinine equation. eGFR-Black/ >90 >=60 mL/min/BSA 2020 6:00 AM TUBE COREMAKER DTL Comment: ----ADDITIONAL INFORMATION---- Estimated GFR calculated using the 2009 CKD_EPI creatinine equation. Calcium, Total, S 9.4 8.6 - 10.0 mg/dL 02/13/2021 6:00 AM TUBE COREMAKER DTL Glucose, S 134 70 - 140 mg/dL 02/13/2021 6:00 AM TUBE COREMAKER D TL Specimen Anatomical Collection Method Collection Time Receive d Time (Source) Location / / Volume Laterality Blood (Blood, 02/13/2021 4:33 AM 02/14/20 5:45 Venous) TUBE COREMAKER AM TUBE COREMAKER Tay BarnesB.S. LAB BLOOD ADD-ON Performing Organization Address City/[facility] Phon e Number [facility] - [address] [place], [place] [address] [place] [id number] (ABNORMAL) CBC without Differential (02/13/2021 4:33 AM TUBE COREMAKER) Patholo gist Method Time Signature Hemoglobin 11.8 (L) 13.2 - 02/13/2021 DTL 16.6 g/dL 5:43 AM TUBE COREMAKER Hematocrit 35.3 (L) 38.3 - 02/13/2021 DTL 48.6 % 5:43 AM TUBE COREMAKER Erythrocytes 4.15 (L) 4.35 - 02/13/2021 DTL 5.65 5:43 AM TUBE COREMAKER x10(12)/L MCV 85.1 78.2 - 02/13/2021 DTL 97.9 fL 5:43 AM TUBE COREMAKER RBC Distrib Width 16.5 (H) 11.8 - 02/13/2021 DTL 14.5 % 5:43 AM TUBE COREMAKER Platelet Count 105 (L) 135 - 317 02/13/2021 DTL x10(9)/L 5:43 AM TUBE COREMAKER Leukocytes 5.9 3.4 - 9.6 02/13/2021 DTL x10(9)/L 5:43 AM TUBE COREMAKER Specimen Anatomical Collection Method Collection Time Receive d Time (Source) Location / / Volume Laterality Blood (Blood, 02/13/2021 4:33 AM 02/14/20 5:35 Venous) TUBE COREMAKER AM TUBE COREMAKER Tay BarnesB.S. LAB BLOOD ADD-ON Performing Organization Address City/[facility] Code Phon e Number [facility] - [address] [place], [place] [address] [place] [id number] Glucose, POCT (02/12/2021 10:01 PM TUBE COREMAKER) Analysis Performed At Patho logist Time Signature Glucose, POCT, 97 70 - 140 02/12/2021 PCLX B mg/dL 10:05 PM TUBE COREMAKER Site Capillary 02/12/2021 PCLX 10:05 PM TUBE COREMAKER Last Intake NPO 02/12/2021 PCLX 10:05 PM TUBE COREMAKER Specimen Anatomical Collection Method Collection Time Receive d Time (Source) Location / / Volume Laterality Blood 02/12/2021 10:01 02/12/2021 PM TUBE COREMAKER 10:05 PM TUBE COREMAKER Unknown Provider LAB POCT ORDERABLES-MANUAL Performing Organization Address City/State/ZIP Code Phon e Number POC [facility] [address] [place] [address] [place] [address] [facility] [address] (ABNORMAL) Lactate (02/12/2021 8:47 PM TUBE COREMAKER) athologist Signature Lactate, P 2.5 (H) 0.5 - 2.2 02/12/2021 STMA mmol/L 9:10 PM TUBE COREMAKER Specimen Anatomical Collection Method Collection Time Receive d Time (Source) Location / / Volume Laterality Blood (Blood, 02/12/2021 8:47 PM 02/13/20 8:56 Venous) TUBE COREMAKER PM TUBE COREMAKER Tay Calderon.B.B.S. LAB BLOOD NON ADD-ON Performing Organization Address City/State/ZIP Code Phon e Number [facility] - [address] [place], [place] [address] [facility] [place] [address] [facility] [address] SW CK (Creatine Kinase) (02/12/2021 8:47 PM TUBE COREMAKER) athologist Signature Creatine Kinase 144 39 - 308 02/12/2021 DTL (CK), S U/L 10:07 PM TUBE COREMAKER Specimen Anatomical Collection Method Collection Time Receive d Time (Source) Location / / Volume Laterality Blood (Blood, 02/12/2021 8:47 PM 02/13/20 9:51 Venous) TUBE COREMAKER PM TUBE COREMAKER Tay Chandler M.B.B.S. LAB BLOOD ADD-ON Performing Organization Address City/State/ZIP Code Phon e Number [facility] - [address] [place], [place] [address] [facility] [place] [place] [address] [facility] [address] (ABNORMAL) Hemoglobin (02/12/2021 8:47 PM TUBE COREMAKER) athologist Signature Hemoglobin 11.9 (L) 13.2 - 16.6 02/12/2021 DTL g/dL 9:53 PM TUBE COREMAKER Specimen Anatomical Collection Method Collection Time Receive d Time (Source) Location / / Volume Laterality Blood (Blood, 02/12/2021 8:47 PM 02/13/20 9:43 Venous) TUBE COREMAKER PM TUBE COREMAKER Tay Wilson LAB BLOOD ADD-ON Performing Organization Address City/State/[facility] Code Phon e Number [facility] - [address] [place], [place] [address] [facility] [place] [address] [facility] [address] Critical Care (02/12/2021 4:24 PM TUBE COREMAKER) Narrative Enoch Steven M.D. - 02/12/2021 4:24 PM TUBE COREMAKER Enoch Steven M.D. ? 02/12/2021 ??4:24 PM Critical Care Performed by: Enoch Steven M.D. Authorized by: Enoch Steven M.D. Critical care provider statement: Critical care total time (minutes): 30 Critical care was necessary to treat or prevent imminent or life-threatening deterioration of the fo llowing conditions: LAWN MOWER failure or compromise Critical care was time spent personally by me on the following activities: Development of treatment plan with patie nt or surrogate, obtaining history from patient or surrogate, ordering and performing treatments and interventions, ordering and review of la boratory studies, re-evaluation of patient's condition and examination of p atient Enoch Steven M.D. PROCEDURE/MINOR SURGICAL ORD ERABLES (ABNORMAL) Lactate, POCT (02/12/2021 2:44 PM TUBE COREMAKER) athologist Signature Lactate, POCT 2.60 (H) 0.50 - 02/12/2021 PCLX 2.20 2:52 PM TUBE COREMAKER mmol/L Sample Site, Venstick 02/12/2021 PCLX POCT 2:52 PM TUBE COREMAKER Specimen Anatomical Collection Method Collection Time Receive d Time (Source) Location / / Volume Laterality Blood 02/12/2021 2:44 PM 2:52 TUBE COREMAKER PM TUBE COREMAKER Unknown Provider LAB POCT ORDERABLES - DEVICE Performing Organization Address City/State/ZIP Code Phon e Number POC [facility] [address] [place] [address] PCLX [facility] [place] [address] [facility] Lactate, POCT (02/12/2021 2:44 PM TUBE COREMAKER) Analysis Performed At Patho logist Time Signature Lactate, POCT Collected DEFAULT 02/12/2021 SMLX 2:44 PM TUBE COREMAKER Specimen Anatomical Collection Method Collection Time Receive d Time (Source) Location / / Volume Laterality Blood (Blood, 02/12/2021 2:44 PM 02/13/20 2:44 Venous) TUBE COREMAKER PM TUBE COREMAKER Enoch Steven M.D. LAB POCT ORDERABLES - DEVICE Performing Organization Address City/[facility]/ZIP Code Phon e Number [facility] - [address] [place], [place] [address] [facility] [place] [address] [facility] [address] Abdomen Pelvis with IV Contrast (02/12/2021 2:05 PM TUBE COREMAKER) Anatomical Region Laterality Modality Abdomen, Pelvis, Abdominal RST LOS, N/A Comp uted Tomography, Computed Abdominal ARZ LOS, Abdominal FLA LOS Hi ography Specimen (Source) Anatomical Collection Method Collection Time Re ceived Time Location / / Volume Laterality 02/12/2021 2:03 PM TUBE COREMAKER Impressions 02/12/2021 2:51 PM TUBE COREMAKER 1. Extensive postsurgical changes as described including recent splenic artery embolization with associated multifocal large splenic infarcts. No definite findings for active extravasation, howev er evaluation is limited. 2. Prominent esophageal/paraesophageal v arices, may be etiology of patient's reported hematemesis. 3. Indeterminate ill-defined hepatic hyp odensities are incompletely evaluated on this examination. 4. Over distended urinary bladder. Cary terization may be considered if clinically warranted. 5. Centrally enlarged, heterogenous mese nteric lymph node is indeterminate but may represent metastases given history o f neuroendocrine tumor. Narrative 02/12/2021 2:51 PM TUBE COREMAKER EXAM: ??CT ABDOMEN PELVIS WITH IV CONTRAST COMPARISON: ??None. FINDINGS: Examination limited secondary to respira tory motion artifact despite repeat attempt. 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 Prior ventral and right inguinal hernia repairs. There is an enlarged lymph node in the central mesentery which measures 1.5 cm and show s heterogenous enhancement (series 6/image 49). 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 No definite findings for active extravas ation on this examination, however evaluation is limited. Mild associated i nflammatory stranding about the spleen. Postsurgical changes in the right hepati c lobe. Small indeterminate ill-defined hepatic hypodensities, incompletely eval uated on this examination. Unable to assess for patency of the portal venous stent. No significant biliary ductal dilatation. Prominent upper abdominal an d esophageal/paraesophageal varices. Grossly unremarkable adrenal glands and kidneys. No evidence of bowel obstruction. Moderate scattered stool th roughout the colon and rectum. No abscess or drainable fluid collection. M arkedly distended urinary bladder. A few prominent Schmorl's nodules thorac ic spine. Procedure Note Mike Veronica M.B.B.S., M.D. - EXAM: CT ABDOMEN PELVIS WITH IV CONTRAST COMPARISON: None. FINDINGS: Examination limited secondary to respira tory motion artifact despite repeat attempt. 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 Prior ventral and right inguinal hernia repairs. There is an enlarged lymph node in the central mesentery which measures 1.5 cm and show s heterogenous enhancement (series 6/image 49). 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 No definite findings for active extravas ation on this examination, however evaluation is limited. Mild associated i nflammatory stranding about the spleen. Postsurgical changes in the right hepati c lobe. Small indeterminate ill-defined hepatic hypodensities, incompletely eval uated on this examination. Unable to assess for patency of the portal venous stent. No significant biliary ductal dilatation. Prominent upper abdominal an d esophageal/paraesophageal varices. Grossly unremarkable adrenal glands and kidneys. No evidence of bowel obstruction. Moderate scattered stool th roughout the colon and rectum. No abscess or drainable fluid collection. M arkedly distended urinary bladder. A few prominent Schmorl's nodules thorac ic spine. IMPRESSION: 1. Extensive postsurgical changes as marlo cribed including recent splenic artery embolization with associated multifocal large splenic infarcts. No definite findings for active extravasation, howev er evaluation is limited. 2. Prominent esophageal/paraesophageal v arices, may be etiology of patient's reported hematemesis. 3. Indeterminate ill-defined hepatic hyp odensities are incompletely evaluated on this examination. 4. Over distended urinary bladder. [place] terization may be considered if clinically warranted. 5. Centrally enlarged, heterogenous mese nteric lymph node is indeterminate but may represent metastases given history o f neuroendocrine tumor. Enoch Steven M.D. IMG CT PROCEDURES SARS Coronavirus 2, RNA, Rapid POC, V Asymptomatic (02/12/2021 1:58 PM TUBE COREMAKER) [facility] Method Time Signature SARS Undetected Undetected 02/12/2021 DTLR Coronavirus-2 2:18 PM TUBE COREMAKER , RNA, Rapid POC, V Comment: Negative for SARS-CoV-2. The [facility] COVID-19 test is a molecular lilli t for SARS-CoV-2, the virus that causes COVID- 19. A Negative result means that the [facility] COV ID-19 test did not detect SARS-CoV-2 virus in your sample. [facility] COVID-19 test uses the [employer] nitoring System. This test has received Emergency Use Authorization (EUA) by the U.S. Food and Drug Administration (FDA) and is used per man ufacturer instructions. Performance characteristic s were verified by [facility] in a manner consistent with CLIA requirements. Fact sheets for this Emerg ency Use Authorization (EUA) can be found at the following links: Providers: https://iodine.[employer]/documentation/prov iders.pdf Patients: https://iodine.com/documentation/shayna ents.pdf SARS Coronavirus 2, Source Nasopharynx DEFAULT 02/12/2021 2:18 PM TUBE COREMAKER DTLR Specimen Anatomical Collection Method Collection Time Receive d Time (Source) Location / / Volume Laterality Varies 02/12/2021 1:58 PM 1:58 (Nasopharynx) TUBE COREMAKER PM TUBE COREMAKER Enoch Steven M.D. LAB MICROBIOLOGY - GENERAL O RDERABLES Performing Organization Address City/State/ZIP Code Phon e Number PERFORMING LABS, REF [place] [address] INTERFACE Ref Interface [address] [facility] DTLR Performing Labs, [place] [address] Interface [address] [facility] [address] Head without IV Contrast (02/12/2021 1:40 PM TUBE COREMAKER) Anatomical Region Laterality Modality Head, Neuroradiology RST LOS, N/A Computed T omography, Computed Neuroradiology ARZ LOS, Neuroradiology T omography FLA LOS Specimen (Source) Anatomical Collection Method Collection Time Re ceived Time Location / / Volume Laterality 02/12/2021 1:42 PM TUBE COREMAKER Impressions 02/12/2021 1:46 PM TUBE COREMAKER No acute intracranial hemorrhage, mass effect, or findings for recent infarction. No hydrocephalus. Min imal mucosal thickening right frontal sinus and right anterior ethmoid air oswaldo ls. Remainder negative. Narrative 02/12/2021 1:46 PM TUBE COREMAKER EXAM: CT HEAD WITHOUT IV CONTRAST COMPARISON: None. Procedure Note Stan Alvarez M.D. - 02/12/2021Format ting of this note might be different from the original. EXAM: CT HEAD WITHOUT IV CONTRAST COMPARISON: None. IMPRESSION: No acute intracranial hemorrhage, mass e ffect, or findings for recent infarction. No hydrocephalus. Min imal mucosal thickening right frontal sinus and right anterior ethmoid air oswaldo ls. Remainder negative. Enoch Steven M.D. IMG CT PROCEDURES (ABNORMAL) Ammonia (02/12/2021 1:10 PM TUBE COREMAKER) P athologist Signature Ammonia, P 114 (H) <=30 02/12/2021 DTL mcmol/L 2:05 PM TUBE COREMAKER Specimen Anatomical Collection Method Collection Time Receive d Time (Source) Location / / Volume Laterality Blood (Blood, 02/12/2021 1:10 PM 02/13/20 21 1:29 Venous) TUBE COREMAKER PM TUBE COREMAKER Enoch Steven M.D. LAB BLOOD NON ADD-ON Performing Organization Address City/State/ZIP Code Phon e Number [facility] - [address] [place], [place] [address] [facility] [place] [place] [address] [facility] [address] DX Chest Portable 1 View (02/12/2021 12:55 PM TUBE COREMAKER) Anatomical Region Laterality Modality Chest, Thoracic RST LOS, Thoracic ARZ LOS, Thoracic N/A Digital Radiography FLA LOS Specimen (Source) Anatomical Collection Method Collection Time Re ceived Time Location / / Volume Laterality 02/12/2021 1:00 PM TUBE COREMAKER Impressions 02/12/2021 1:05 PM TUBE COREMAKER No comparison. There is widening of the right paratracheal stripe, which could be related to mediastinal li pomatosis but is indeterminate. Comparison with any available outside im aging would be helpful. Otherwise follow-up nonemergent CT could be consid ered. Normal heart size. No consolidation or effusion. TIPS stent. E mbolization coils in the midline abdomen and right upper quadrant. Narrative 02/12/2021 1:05 PM TUBE COREMAKER EXAM: ??DX CHEST PORTABLE 1 VIEW Procedure Note Vinicio Parekh M.D. - 02/12/2021Formatt ing of this note might be different from the original. EXAM: DX CHEST PORTABLE 1 VIEW IMPRESSION: No comparison. There is widening of the right paratracheal stripe, which could be related to mediastinal li pomatosis but is indeterminate. Comparison with any available outside im aging would be helpful. Otherwise follow-up nonemergent CT could be consid ered. Normal heart size. No consolidation or effusion. TIPS stent. E mbolization coils in the midline abdomen and right upper quadrant. Felix Hernandez P.A.-C. IMG DIAGNOSTIC IMAGING PROCE [facility] ECG 12 Lead (02/12/2021 12:22 PM TUBE COREMAKER) P athologist Signature Ventricular Rate 84 BPM MUSE ECG/Min AR Interval 158 ms MUSE QRSD Interval 74 ms MUSE QT Interval 400 ms MUSE QTC Interval 473 ms MUSE P Halliday 61 degrees MUSE R Halliday 41 degrees MUSE T Wave Halliday 33 degrees MUSE Specimen Anatomical Collection Method Collection Time Receive d Time (Source) Location / / Volume Laterality 02/12/2021 12:22 02/12/2021 PM TUBE COREMAKER 12:26 PM TUBE COREMAKER Impressions MUSE - 02/12/2021 12:26 PM TUBE COREMAKER Normal sinus rhythm Nonspecific ST abnormality Prolonged QT No previous ECGs available Reviewed by SHASTA Giron Narrative This result has an attachment that is no t available. Procedure Note Sj Farnsworth M.D. - 02/12/2021Forma tting of this note might be different from the original. IMPRESSION: Normal sinus rhythm Nonspecific ST abnormality Prolonged QT No previous ECGs available Reviewed by SHASTA Giron Felix Hernandez P.A.-C. ECG ORDERABLES Performing Organization Address City/[facility]/ZIP Code Phon e Number MUSE MUSE NA (ABNORMAL) Lactate, POCT (02/12/2021 12:21 PM TUBE COREMAKER) P athologist Signature Lactate, POCT 4.15 (H) 0.50 - 02/12/2021 PCLX 2.20 1:03 PM TUBE COREMAKER mmol/L Sample Site, Venline 02/12/2021 PCLX POCT 1:03 PM TUBE COREMAKER Specimen Anatomical Collection Method Collection Time Receive d Time (Source) Location / / Volume Laterality Blood 02/12/2021 12:21 02/12/2021 1:04 PM TUBE COREMAKER PM TUBE COREMAKER Unknown Provider LAB POCT ORDERABLES - DEVICE Performing Organization Address [facility] Phon e Number POC [facility] [address] [place] [address] [place] [address] [facility] [address] Lactate, POCT (02/12/2021 12:19 PM TUBE COREMAKER) Analysis Performed At Patho logist Time Signature Lactate, POCT Collected DEFAULT 02/12/2021 SMLX 12:19 PM TUBE COREMAKER Specimen Anatomical Collection Method Collection Time Receive d Time (Source) Location / / Volume Laterality Blood (Blood, 02/12/2021 12:19 02/12/2021 Venous) PM TUBE COREMAKER 12:19 PM TUBE COREMAKER Felix Hernandez P.A.-C. LAB POCT ORDERABLES - DEVICE Performing Organization Address City/[facility]/ZIP [facility] Phon e Number [facility] - [address] [place], [place] [address] [facility] [place] [address] [facility] Ed[facility] [address] Blood Gas, Venous, POCT (02/12/2021 12:19 PM TUBE COREMAKER) Analysis Performed At Patho logist Time Signature ABG and Lytes, Collected DEFAULT 02/12/2021 SMLX POCT, B 12:19 PM TUBE COREMAKER Specimen Anatomical Collection Method Collection Time Receive d Time (Source) Location / / Volume Laterality Blood (Other, 02/12/2021 12:19 02/12/2021 Specify in PM TUBE COREMAKER 12:19 PM TUBE COREMAKER Comments) Felix Hernandez P.A.-C. LAB POCT ORDERABLES - DEVICE Performing Organization Address City/State/ZIP Code Phon e Number [facility] - [address] [place], [place] [address] [facility] [place] [address] [facility] [address] [facility] (ABNORMAL) Venous Blood Gas and Electrolytes CG8+, POCT (02/12/2021 12:17 PM TUBE COREMAKER) P athologist Signature Sample Site, Venline 02/12/2021 PCSM POCT 1:03 PM TUBE COREMAKER Comment: ----ADDITIONAL INFORMATION---- Performed at the Point of Care pH, Venous, POCT, B 7.39 7.32 - 7.43 02/12/2021 1:03 PM TUBE COREMAKER PCSM Comment: ----ADDITIONAL INFORMATION---- Performed at the Point of Care pCO2, Venous, POCT, B 37 (L) 41 - 51 mm Hg 02/12/2021 1:0 3 PM TUBE COREMAKER PCSM Comment: ----ADDITIONAL INFORMATION---- Performed at the Point of Care pO2, Venous, POCT, B 28 Not Applicable mm Hg 02/13/20 21 1:03 PM TUBE COREMAKER PCSM Comment: ----ADDITIONAL INFORMATION---- Performed at the Point of Care Base Excess, Venous, POCT, B -3 Not Applicable mmol/L 02/12/2021 1:03 PM TUBE COREMAKER PCSM Comment: ----ADDITIONAL INFORMATION---- Performed at the Point of Care HCO3, Venous, POCT, B 22 Not Applicable mmol/L 2020 1:03 PM TUBE COREMAKER PCSM Comment: ----ADDITIONAL INFORMATION---- Performed at the Point of Care Sodium, POCT, B 139 135 - 145 mmol/L 02/12/2021 1:03 P M TUBE COREMAKER PCSM Comment: ----ADDITIONAL INFORMATION---- Performed at the Point of Care Potassium, POCT, B 3.9 3.6 - 5.2 mmol/L 02/12/2021 1:0 3 PM TUBE COREMAKER PCSM Comment: ----ADDITIONAL INFORMATION---- Performed at the Point of Care Calcium, Ionized, POCT, B 4.90 4.65 - 5.30 mg/dL 2020 1:03 PM TUBE COREMAKER PCSM Comment: ----ADDITIONAL INFORMATION---- Performed at the Point of Care Glucose, POCT, B 231 (H) 70 - 140 mg/dL 02/12/2021 1:03 PM TUBE COREMAKER PCSM Comment: ----ADDITIONAL INFORMATION---- Performed at the Point of Care Hematocrit, POCT, B 36.0 (L) 38.3 - 48.6 % 02/12/2021 1:03 PM TUBE COREMAKER PCSM Comment: ----ADDITIONAL INFORMATION---- Performed at the Point of Care Specimen Anatomical Collection Method Collection Time Receive d Time (Source) Location / / Volume Laterality Blood 02/12/2021 12:17 02/12/2021 1:03 PM TUBE COREMAKER PM TUBE COREMAKER Unknown Provider LAB POCT ORDERABLES - DEVICE Performing Organization Address City/State/ZIP Code Phon e Number POC RST [facility] INPATIENT [address] [place], [place] [address] LABS PCSM [facility] [place] [address] [place] POC [address] SW (ABNORMAL) Prothrombin Time (PT) (02/12/2021 12:17 PM TUBE COREMAKER) [facility] gist Method Time Signature Prothrombin 13.6 (H) 9.4 - 12.5 02/12/2021 [facility] Time, P sec 12:48 PM TUBE COREMAKER INR 1.2 0.9 - 1.1 02/12/2021 [facility]MA 12:48 PM TUBE COREMAKER Comment: ----ADDITIONAL INFORMATION---- Standard intensity warfarin therapeutic range: 2.0 to 3.0 ?? High intensity warfarin therapeutic rang e: 2.5 to 3.5 Specimen Anatomical Collection Method Collection Time Receive d Time (Source) Location / / Volume Laterality Blood (Blood, 02/12/2021 12:17 02/12/2021 Venous) PM TUBE COREMAKER 12:32 PM TUBE COREMAKER Felix Hernandez P.A.-C. LAB BLOOD ADD-ON Performing Organization Address City/[facility]/ZIP Code Phon e Number [facility] - [address] [place], [place] [address] [facility] [place] [address] Ethanol Level, Serum (02/12/2021 12:17 PM TUBE COREMAKER) P athologist Signature Ethanol, S <10 <10 mg/dL 02/12/2021 2:02 DTL PM TUBE COREMAKER Specimen Anatomical Collection Method Collection Time Receive d Time (Source) Location / / Volume Laterality Blood (Blood, 02/12/2021 12:17 02/12/2021 1:38 Venous) PM TUBE COREMAKER PM TUBE COREMAKER Felix Hernandez P.A.-C. LAB BLOOD NON ADD-ON Performing Organization Address City/[facility]/ZIP [facility] Phon e Number [facility] - [address] [place], [place] [address] [place] [address] (ABNORMAL) Lipase (02/12/2021 12:17 PM TUBE COREMAKER) P athologist Signature Lipase, S 6 (L) 13 - 60 U/L 02/12/2021 2:02 DTL PM TUBE COREMAKER Specimen Anatomical Collection Method Collection Time Receive d Time (Source) Location / / Volume Laterality Blood (Blood, 02/12/2021 12:17 02/12/2021 1:38 Venous) PM TUBE COREMAKER PM TUBE COREMAKER Felix Hernandez P.A.-C. LAB BLOOD ADD-ON Performing Organization Address City/[facility]/ZIP [facility] Phon e Number [facility] - [address] [place], [place] [address] [place], [place] [id number] [place] [address] (ABNORMAL) Hepatic Function Panel (02/12/2021 12:17 PM TUBE COREMAKER) Patholo gist Method Time Signature Bilirubin, Total, S 1.5 (H) <=1.2 02/12/2021 DTL mg/dL 2:02 PM TUBE COREMAKER Bilirubin, Direct, S 0.4 (H) 0.0 - 0.3 02/12/2021 DTL mg/dL 2:02 PM TUBE COREMAKER Aspartate 52 (H) 8 - 48 02/12/2021 DTL Aminotransferase U/L 2:02 PM TUBE COREMAKER (AST), S Alanine 104 (H) 7 - 55 02/12/2021 DTL Aminotransferase U/L 2:02 PM TUBE COREMAKER (ALT), S Alkaline 152 (H) 40 - 129 02/12/2021 DTL Phosphatase, S U/L 2:02 PM TUBE COREMAKER Albumin, S 4.0 3.5 - 5.0 02/12/2021 DTL g/dL 2:02 PM TUBE COREMAKER Protein, Total, S 6.1 (L) 6.3 - 7.9 02/12/2021 DTL g/dL 2:02 PM TUBE COREMAKER Specimen Anatomical Collection Method Collection Time Receive d Time (Source) Location / / Volume Laterality Blood (Blood, 02/12/2021 12:17 02/12/2021 1:38 Venous) PM TUBE COREMAKER PM TUBE COREMAKER Felix Hernandez P.A.-C. LAB BLOOD ADD-ON Performing Organization Address City/State/ZIP Code Phon e Number [facility] - [address] [place], [place] [address] [facility] [place] [place] [address] [facility] [address] (ABNORMAL) Basic Metabolic Panel (02/12/2021 12:17 PM TUBE COREMAKER) Analysis Performed At Patho logist Time Signature Potassium, P 3.9 3.6 - 5.2 02/12/2021 STMA mmol/L 12:50 PM TUBE COREMAKER Sodium, P 136 135 - 145 02/12/2021 [facility] mmol/L 12:50 PM TUBE COREMAKER Chloride, P 102 98 - 107 02/12/2021 STMA mmol/L 12:50 PM TUBE COREMAKER Bicarbonate, P 20 (L) 22 - 29 02/12/2021 STMA mmol/L 12:50 PM TUBE COREMAKER Anion Gap, P 14 7 - 15 02/12/2021 STMA 12:50 PM TUBE COREMAKER BUN (Blood Urea 21 8 - 24 02/12/2021 STMA Nitrogen), P mg/dL 12:50 PM TUBE COREMAKER Creatinine 0.70 (L) 0.74 - 02/12/2021 STMA 1.35 mg/dL 12:50 PM TUBE COREMAKER eGFR-Black/Afri >90 >=60 02/12/2021 STMA can Scottish mL/min/BSA 12:50 PM TUBE COREMAKER Comment: ----ADDITIONAL INFORMATION---- Estimated GFR calculated using the 2009 CKD_EPI creatinine equation. eGFR Non-Black/ >90 >=60 mL/min/BSA 02/12/2021 12:50 PM TUBE COREMAKER STMA Comment: ----ADDITIONAL INFORMATION---- Estimated GFR calculated using the 2009 CKD_EPI creatinine equation. Calcium, Total, P 9.1 8.6 - 10.0 mg/dL 02/12/2021 12:5 0 PM TUBE COREMAKER [facility] Glucose, P 242 (H) 70 - 140 mg/dL 02/12/2021 12:50 PM TUBE COREMAKER [facility] Specimen Anatomical Collection Method Collection Time Receive d Time (Source) Location / / Volume Laterality Blood (Blood, 02/12/2021 12:17 02/12/2021 Venous) PM TUBE COREMAKER 12:33 PM TUBE COREMAKER Felix Hernandez P.A.-C. LAB BLOOD ADD-ON Performing Organization Address City/[facility] Code Phon e Number [facility] - [address] [place], [place] [address] [place] [address] [place] [address] Type and Screen (with reflex Antibody ID) (02/12/2021 12:17 PM TUBE COREMAKER) [facility] Method Time Signature ABORh A Pos Not 02/12/2021 STRM applicable 1:18 PM TUBE COREMAKER Antibody Negative Negative 02/12/2021 STRM Screen 1:18 PM TUBE COREMAKER Type & Screen 02/15/2021 02/12/2021 STRM Expiration 23:59 1:18 PM TUBE COREMAKER Testing Enedelia DEFAULT 02/12/2021 STRM Location 12:33 PM TUBE COREMAKER Specimen Anatomical Collection Method Collection Time Receive d Time (Source) Location / / Volume Laterality Blood (Blood, 02/12/2021 12:17 02/12/2021 Venous) PM TUBE COREMAKER 12:33 PM TUBE COREMAKER Felix Hernandez P.A.-C. LAB BLOOD BANK TEST ORDERABL ES Performing Organization Address [facility] Phon e Number [facility] - [address] [place], [place] [address] [facility] [place] [place] [address] Laboratories-[facility] [place] [address] (ABNORMAL) CBC with Differential, Blood (02/12/2021 12:17 PM TUBE COREMAKER) [facility] gist Method Time Signature Hemoglobin 12.8 (L) 13.2 - 02/12/2021 [facility] 16.6 g/dL 12:37 PM TUBE COREMAKER Hematocrit 37.2 (L) 38.3 - 02/12/2021 ST[facility] 48.6 % 12:37 PM TUBE COREMAKER Erythrocytes 4.36 4.35 - 02/12/2021 STMA 5.65 12:37 PM TUBE COREMAKER x10(12)/L MCV 85.3 78.2 - 02/12/2021 STMA 97.9 fL 12:37 PM TUBE COREMAKER RBC Distrib Width 16.2 (H) 11.8 - 02/12/2021 ST[facility] 14.5 % 12:37 PM TUBE COREMAKER Platelet Count 117 (L) 135 - 317 02/12/2021 [facility] x10(9)/L 1:47 PM TUBE COREMAKER Comment: Results confirmed by smear, no clumping or interference seen. Leukocytes 8.7 3.4 - 9.6 x10(9)/L 02/12/2021 1:[address] [facility] Neutrophils 7.35 (H) 1.56 - 6.45 x10(9)/L 02/12/2021 12:37 PM TUBE COREMAKER [facility] Lymphocytes 0.57 (L) 0.95 - 3.07 x10(9)/L 02/12/2021 12:37 PM TUBE COREMAKER [facility] Monocytes 0.69 0.26 - 0.81 x10(9)/L 02/12/2021 12:37 PM TUBE COREMAKER [facility] Eosinophils 0.04 0.03 - 0.48 x10(9)/L 02/12/2021 12:37 PM TUBE COREMAKER [facility] Basophils 0.05 0.01 - 0.08 x10(9)/L 02/12/2021 12:37 PM TUBE COREMAKER [facility] Specimen Anatomical Collection Method Collection Time Receive d Time (Source) Location / / Volume Laterality Blood (Blood, 02/12/2021 12:17 02/12/2021 Venous) PM TUBE COREMAKER 12:33 PM TUBE COREMAKER Felix Hernandez P.A.-C. LAB BLOOD ADD-ON Performing Organization Address City/State/ZIP Code Phon e Number [facility] - [address] [place], [place] [address] [facility] [place] [address] Laboratories-[facility] [address] documented in this encounter Visit Diagnoses Diagnosis Hematemesis - Primary Hematemesis Change Mental Status Hyperammonemia (HCC) Hemorrhage Gastrointestinal Hemorrhage Gastrointestinal documented in this encounter Admitting Diagnoses Diagnosis Hematemesis Hemorrhage Gastrointestinal documented in this encounter Administered Medications Inactive Administered Medications - up to 3 most recent administrations Medication Order MAR Action Action Date Dose Rate Site acetaminophen tablet 500 mg (TYLENOL) 500 mg, oral, Every 6 hours PRN, mild pain or score 1- 3 of 10, Starting on Thu02/12/21 at 2045, Not to exceed 4 grams in 24 hours. apixaban tablet 2.5 mg (ELIQUIS) Given 02/16/2021 8:46 AM TUBE COREMAKER 2.5 mg 2.5 mg, oral, 2 times daily, First dose on Thu02/15/21 at 2100 Given 02/15/2021 8:31 PM TUBE COREMAKER 2.5 mg cefTRIAXone in dextrose (iso-osm) IVPB New Bag 02/15/2021 6:41 PM TUBE COREMAKER 1 g 200 mL/hr 1 g (ROCEPHIN) 1 g, intravenous, at 200 mL/hr, Administer over 15 Minutes, Every 24 hours, First dose on Thu02/12/21 at 1800, Drug Monitoring Program: Pharmacist to adjust medication dosing based on indication and drug clearance factors., Indications: Intra-abdominal infection, community acquired, prophylaxis ugi bleed cirrhosis New Bag 02/14/2021 5:49 PM TUBE COREMAKER 1 g 200 mL/hr New Bag 02/13/2021 5:43 PM TUBE COREMAKER 1 g 200 mL/hr cefTRIAXone in dextrose (iso-osm) IVPB New Bag 02/16/2021 4:54 PM TUBE COREMAKER 1 g 200 mL/hr 1 g (ROCEPHIN) 1 g, intravenous, at 200 mL/hr, Administer over 15 Minutes, Every 24 hours, First dose (after last modification) on Thu02/16/21 at 1500, Drug Monitoring Program: Pharmacist to adjust medication dosing based on indication and drug clearance factors., Indications: Intra-abdominal infection, community acquired, prophylaxis ugi bleed cirrhosis influenza quadrivalent (PF) (6 Given 02/12/2021 6:05 PM TUBE COREMAKER 0.5 mL Right Deltoid months & older) vaccine 0.5 mL (FLUZONE/FLUARIX) 0.5 mL, intramuscular, Once, On Thu02/12/21 at 1800, For 1 dose insulin aspart U-100 Given 02/16/2021 8:46 AM TUBE COREMAKER 2 Units Left Lower Abdomen injection 0-13 Units (NovoLOG FlexPen) 0-13 Units, subcutaneous, 3 times daily, First dose on Thu02/13/21 at 0800, Insulin Scale: Moderate Correction Scale, 140 - 179: 2 units, 180 - 219: 4 units, 220 - 259: 6 units, 260 - 299: 8 units, 300 - 339: 10 units, 340 - 379: 12 units, 380 - 399: 13 units, Greater than 399: Call service writing Insulin orders Given 02/15/2021 6:18 PM TUBE COREMAKER 2 Units Right Upper Arm (Back) Given 02/15/2021 12:23 PM TUBE COREMAKER 2 Units Left Upper Arm (Back) iohexoL 300 mg iodine/mL solution 1-200 mL Given 02/12/2021 2:04 PM TUBE COREMAKER 140 mL (OMNIPAQUE) 1-200 mL, intravenous, Once in imaging, contrast, Starting on Thu02/12/21 at 1404, For 1 dose, Imaging Protocol Orders, Dose per Radiant Medication Guidelines lactulose in sterile water 200 gram/1000 mL Given 01/28 9:20 PM TUBE COREMAKER 1,000 mL enema 1,000 mL 1,000 mL, rectal, 2 times daily, First dose (after last modification) on Thu02/12/21 at 2100, Total dose= 1000 mL; Instill ~ 300 mL at a time, and retain for 15-20 minutes each lactulose solution 10 g (CHRONULAC) Given 02/15/2021 8:42 AM TUBE COREMAKER 10 g 10 g, oral, 3 times daily, First dose on Thu02/12/21 at 2200 Given 02/14/2021 8:53 PM TUBE COREMAKER 10 g Given 02/14/2021 2:22 PM TUBE COREMAKER 10 g lactulose solution 10 g (CHRONULAC) Given 02/16/2021 1:56 PM TUBE COREMAKER 10 g 10 g, oral, 5 times daily, First dose (after last modification) on Thu02/15/21 at 1045 Given 02/16/2021 10:13 AM TUBE COREMAKER 10 g Given 02/16/2021 6:08 AM TUBE COREMAKER 10 g [id number]-[id number] Given 02/13/2021 6:08 PM TUBE COREMAKER 30,000 Unit s of 10,000-32,000 -42,[address] lipase capsule 30,000 Units of lipase (ZENPEP) 30,000 Units of lipase, oral, 3 times daily with meals, First dose on Thu02/13/21 at 1700, ZENPEP lipase 10,000/32,000/42,000 units were interchanged for lipase content < 15,000 units oral cap/tab Do NOT crush or chew. Capsule may be opened and the contents taken without crushing or chewing. [id number] Given 02/16/2021 1:56 PM TUBE COREMAKER 160,000 Uni ts of 20,000-63,000- 84,[address] lipase capsule 160,000 Units of lipase (ZENPEP) 160,000 Units of lipase, oral, 3 times daily with meals, First dose on Thu02/14/21 at 0800, Patient's home dose is 5-7 capsules of 24,000 units of lipase (Creon). Converted to Zenpep 20,000 units which is equivalent to 6-8 capsules per meal. Patient can take 6-8 capsules based on meal. ZENPEP lipase 20,000/63,000/84,000 units were interchanged for lipase content 15,000 to < 25,000 units oral cap/tab Do NOT crush or chew. Capsule may be opened and the contents taken without crushing or chewing. Given 02/16/2021 8:46 AM TUBE COREMAKER 120,000 Units of lipase Given 02/15/2021 6:15 PM TUBE COREMAKER 160,000 Units of lipase oyspvk-uqevojqg-wkdmnus 25,000-79,000-10 5,[address] capsule 100,000 Units of lipase (ZENPEP) 100,000 Units of lipase, oral, 3 times d aily PRN, snacks, Starting on Thu02/13/21 at 2050, Patient's home dose is 2-4 capsules of 24,000 units of lipase (Creon). Converted to Zenpep 25,000 units which is equivalent t o 2-4 capsules per snack. Patient can take 1-4 capsules based on s nack. ZENPEP lipase 25,000/79,000/105,000 units were interchanged for lipase sohail nt equal to or > 25,000 units oral cap/tab Do NOT crush or chew. Capsule may be ope margarito and the contents taken without crushing or chewing. midazolam (PF) injection 2.5 mg (VERSED) Given 02/12/2021 1:46 PM TUBE COREMAKER 2.5 mg 2.5 mg, intravenous, Once, On Thu02/12/21 at 1347, For 1 dose octreotide 2 mcg/mL in NaCl 0.9% New Bag 02/15/2021 10:[address] 50 mcg/hr 25 mL/hr 250 mL infusion (SandoSTATIN) 50 mcg/hr (25 mL/hr), intravenous, Continuous, Starting on Thu02/12/21 at 1228, For 72 hours, Protect from light. New Bag 02/15/2021 12:36 AM TUBE COREMAKER 50 mcg/hr 25 mL/hr New Bag 02/14/2021 2:23 PM TUBE COREMAKER 50 mcg/hr 25 mL/hr octreotide injection 50 mcg (SandoSTATIN ) Given 02/12/2021 1:00 PM TUBE COREMAKER 50 mcg 50 mcg, intravenous, Once, On Thu02/12/21 at 1228, For 1 dose, Refrigerate. Protect from light. ondansetron (PF) injection 4 mg (ZOFRAN) Given 02/12/2021 12:55 PM TUBE COREMAKER 4 mg 4 mg, intravenous, Once, On Thu02/12/21 at 1229, For [address] tablet 40 mg (PROTONIX) Given 02/16/2021 6:08 AM TUBE COREMAKER 40 mg 40 mg, oral, 2 times daily before breakfast and dinner, First dose on Thu02/13/21 at 1600, Swallow whole. Do NOT crush, chew, or split tablet. Given 02/15/2021 5:19 PM TUBE COREMAKER 40 mg Given 02/15/2021 6:14 AM TUBE COREMAKER 40 mg pantoprazole injection 40 mg (PROTONIX) Given 02/12/2021 1:06 PM TUBE COREMAKER 40 mg 40 mg, intravenous, Once, On Thu02/12/21 at 1226, For 1 dose, Administer IV push over 2 minutes. Add 10 mL NS to 40 mg vial for a final concentration of 4 mg/mL. pantoprazole injection 40 mg (PROTONIX) Given 02/13/2021 8:07 AM TUBE COREMAKER 40 mg 40 mg, intravenous, 2 times daily, First dose on Thu02/12/21 at 2100, First dose now if not previously given Administer IV push over 2 minutes. Add 10 mL NS to 40 mg vial for a final concentration of 4 mg/mL. Given 02/12/2021 9:10 PM TUBE COREMAKER 40 mg simethicone drops (MYLICON) Given 02/13/2021 11:08 AM TUBE COREMAKER 1 mL Code/trauma/sedation medication, Starting on Thu02/13/21 at 1108 sodium chloride (PF) 0.9 % injection 1-1 00 mL Given 02/12/2021 2:04 PM TUBE COREMAKER 50 mL 1-100 mL, intravenous, Once, On Thu02/12/21 at 1405, For 1 dose, Imaging Protocol Orders sodium chloride 0.9 % injection 10 mL Given 02/12/2021 2:04 PM TUBE COREMAKER 10 mL 10 mL, intravenous, As needed, line care, Starting on Thu02/12/21 at 1210, Peripheral Intravenous Catheter and Rapid Infusion Catheter, prior to blood sampling, post blood transfusion or post blood sampling sodium chloride 0.9 % injection 3 mL 3 mL, intravenous, As needed, line care, Starting on Thu02/12/21 at 1210, Prior to and following infusion and between multi ple consecutive infusions: sodium chloride 0.9 % injection sodium chloride 0.9 % injection 3 mL Given 02/16/2021 8:43 AM TUBE COREMAKER 3 mL 3 mL, intravenous, Every 12 hours scheduled, First dose on Thu02/12/21 at 2100, Peripheral Intravenous Catheter and Rapid Infusion Catheter, when no infusion to maintain patency Given 02/15/2021 8:32 PM TUBE COREMAKER 3 mL Given 02/15/2021 8:46 AM TUBE COREMAKER 3 mL documented in this encounter Active and Recently Administered Medications Times are shown in TUBE COREMAKER. Scheduled Medication Order 02/14/2021 02/15/2021 02/16/2021 apixaban tablet 2.5 mg (ELIQUIS) 2030 (G iven - Provider: Jesi Jarvis R.N.) 0846 (Given - Provider: Aga pearson R.NJordan) 2.5 mg, oral, 2 times daily, First dose on Thu02/15/21 at 2100 cefTRIAXone in dextrose (iso-osm) IVPB 1 g (ROCEPHIN) (CANCELED) 1749 (New Bag - Provider: Aga Coleman R.N.) 1841 (New Bag - Provider: Jesi green R.NJordan) 1 g, intravenous, at 200 mL/hr, Administ er over 15 Minutes, Every 24 hours, First dose on Thu02/12/21 at 1800, Drug Monitoring Program: Pharmacist to adjust medication dosing based on indication and dr ug clearance factors., Indications: Intr a-abdominal infection, community acquired, prophylaxis ugi bleed cirrhosis cefTRIAXone in dextrose (iso-osm) IVPB 1 g (ROCEPHIN) 1654 (New Bag - Provider: Yamileth Dos Santos RJordanNJordan) 1 g, intravenous, at 200 mL/hr, Administ er over 15 Minutes, Every 24 hours, First dose (after last modification) on 02/16/21 at 1500, Drug Monitoring Program: Pharmacist to adjust medication dosing based on indication and drug clearance f actors., Indications: Intra-abdominal infection, community acquired, prophylaxis ugi bleed cirrhosis insulin aspart U-100 injection 0-13 Units (NovoLOG Fle xPen) 0745 (Not Given - Provider: Jennifer Dietrich RJordanNJordan - Reason: Order parameters not met - Comment: 120)1351 (Given - Provider: Toni Cadena R.NJordan)1806 (Not Given - Provider: Aga Coleman R.N. - Reason: Order parameters not met) 0841 (Given - Provider: Aga Coleman R.N.)1223 (Given - Provider: Ivory Omer RJordanNJordan - Comment: RMG 153)1818 (Given - Provider: Jesi Jarvis R.N. - Comment: Late) 0846 (Given - Provider: Aga pearson R.NJordan)1400 (Not Given - Provider: Clarissa FreemanNJordan - Reason: Order parameters not met)1700 (Due) 0-13 Units, subcutaneous, 3 times daily, First dose on Thu02/13/21 at 0800, Insulin Scale: Moderate Correction Scale, 140 - 179: 2 units, 180 - 219: 4 units, 220 - 259: 6 units, 260 - 299: 8 units, 300 - 339: 10 units, 340 - 379: 12 units, 3 80 - 399: 13 units, Greater than 399: Call service writing Insulin orders lactulose solution 10 g (CHRONULAC) (CANCELED) 0923 (N ot Given - Provider: Jennifer Dietrich RCarson - Reason: Patient/family refused - Comment: not now; afternoon dose)1422 (Given - Provider: Jennifer Dietrich R.N.)2053 (Given - Provider: Aga Coleman R.N.) 0842 (Given - Provider: Aga pearson R.N.) 10 g, oral, 3 times daily, First dose on Thu02/12/21 at 2200 lactulose solution 10 g (CHRONULAC) 1048 (Given - Provider: Aga Coleman R.N.)1716 (Given - Provider: Jesi Jarvis R.N.)1726 (Not Given - Provider: Jesi Jarvis R.N. - Reason: Other - Comment: Patient not on unit)2030 (Given - Provider: Jesi Jarvis R.N.) 0608 (Given - Provider: Justen Mathews R.N.)1013 (Given - Provider: Aga Coleman R.N.)1356 (Given - Provider: Aga Coleman R.NJordan) 10 g, oral, 5 times daily, First dose (a fter last modification) on Thu02/15/21 at 1045 nxocwd-avpxotas-vquyfqo 20,000-63,000- 8 4,[address] capsule 160,000 Units of lipase (ZENPEP) 0900 (Given - Provider: Jennifer taylor R.N. - Comment: 6 given based on meal)1348 (Given - Provider: Toni Cadena R.N.)1749 (Given - Provider: Aga Coleman R.N.) 0841 (Given - Provider: Aga pearson R.N.)1227 (Given - Provider: Ivory Omer RJordanNJordan - Comment: 7 caps - all needed per pt)1815 (Given - Provider: Jesi Jarvis RJordanN. - Comment: Late Dinner) 0846 (Given - Provider: Aga pearson R.N.)1356 (Given - Provider: Clarissa FreemanN.)1700 (Due) 160,000 Units of lipase, oral, 3 times d aily with meals, First dose on Thu02/14/21 at 0800, Patient's home dose is 5-7 capsules of 24,000 units of lipase (Creon). Converted to Zenpep 20,000 units which is equivalent to 6-8 capsules per meal. Patient can take 6-8 capsules based on meal. ZENPEP lipase 20,000/63,000/84,000 units were interchanged for lipase content 15,000 to < 25,000 units oral cap/t ab Do NOT crush or chew. Capsule may be opened and the contents taken without crushing or chewing. pantoprazole DR tablet 40 mg (PROTONIX) 0638 (Given - Provider: Margo Zepeda RCarson)1749 (Given - Provider: Aga Coleman R.N.) 0614 (Given - Provider: Margo Zepeda R.N.)1719 (Given - Provider: Jesi Jarvis RJordanN.) 0608 (Given - Provider: Justen Mathews RJordanNJordan)1600 (Due) 40 mg, oral, 2 times daily before breakf ast and dinner, First dose on Thu02/13/21 at 1600, Swallow whole. Do NOT crush, chew, or split tablet. sodium chloride 0.9 % injection 3 mL 0924 (Given - Pro vider: Jennifer Dietrich RJordanN.)212 (Given - Provider: Aga Coleman R.N.) 0846 (Given - Provider: Clarissa FreemanN.)203 (Given - Provider: Jesi Jarvis RJordanN.) 0843 (Given - Provider: Aga Coleman RJordanNJordan) 3 mL, intravenous, Every 12 hours schedu led, First dose on Thu02/12/21 at 2100, Peripheral Intravenous Catheter and Rapid Infusion Catheter, when no infusion to maintain patency Continuous Medication Order 02/14/2021 02/15/2021 02/16/2021 octreotide 2 mcg/mL in NaCl 0.9% 250 mL infusion (Sand oSTATIN) (CANCELED) 0345 (New Bag - Provider: Margo Zepeda RCarson)1423 (New Bag - Provider: Jennifer Dietrich R.N.)1507 (Handoff - Provider: Jennifer Dietrich R.N.) 0036 (New Bag - Provider: Stan Garg R.N.)1048 (New Bag - Provider: Aga Coleman R.N.)1412 (Stopped - Provider: Aga Coleman R.N.) 50 mcg/hr (25 mL/hr), intravenous, Raj nuous, Starting on Thu02/12/21 at 1228, For 72 hours, Protect from light. PRN Medication Order 02/14/2021 02/15/2021 02/16/2021 acetaminophen tablet 500 mg (TYLENOL) 500 mg, oral, Every 6 hours PRN, mild pa in or score 1-3 of 10, Starting on Thu02/12/21 at 2044, Not to exceed 4 grams in 24 hours. iqnwsx-mjbcxlxa-kigsxaj 25,000-79,000-10 5,[address] capsule 100,000 Units of lipase (ZENPEP) 100,000 Units of lipase, oral, 3 times d aily PRN, snacks, Starting on Thu02/13/21 at 2050, Patient's home dose is 2-4 capsules of 24,000 units of lipase (Creon). Converted to Zenpep 25,000 units which is equivalent to 2-4 capsules per snack. Patient can take 1-4 capsules based on snack. ZENPEP lipase 25,000/79,000/105,000 units were interchanged for lipase content equal to or > 25,000 units oral c ap/tab Do NOT crush or chew. Capsule may be opened and the contents taken without crushing or chewing. ondansetron (PF) injection 4 mg (ZOFRAN) 4 mg, intravenous, Every 8 hours PRN, na usea, vomiting, Starting on Thu02/12/21 at 1623 sodium chloride 0.9 % injection 10 mL 10 mL, intravenous, As needed, line care , Starting on Thu02/12/21 at 1210, Peripheral Intravenous Catheter and Rapid Infusion Catheter, prior to blood sampling, post blood transfusion or post blood sampling sodium chloride 0.9 % injection 3 mL 3 mL, intravenous, As needed, line care, Starting on Thu02/12/21 at 1210, Prior to and following infusion and between multiple consecutive infusions: sodium chloride 0.9 % injection documented in this encounter Additional Health Concerns Infection Onset Date Last Indicated Resolved Time COVID19 Pending 02/12/2021 02/12/2021 02/12/2021 2:19 PM TUBE COREMAKER documented as of this encounter Care Teams Training Program Manager Relationship Specialty Start Date End Date Elsewhere, Pcp PCP - General Family Medicine 02/12/21 documented as of this encounter
[2022-03-03 09:45] LABS: Troponin I* < 0.01 ng/mL (0.01-0.04)
--- NOTE | 2022-03-03 10:00 | ED.GENADULT ---
HPI - General Adult General Chief complaint: Altered Mental Status Stated complaint: Raised ammonia levels, confusion Time Seen by Provider: 03/03/22 08:17 Source: family and EMS Limitations: altered mental status History of Present Illness HPI narrative: 61-year-old male brought in by EMS at the request of his who is out of town, for confusion. Patient has a history of pancreatic cancer with liver metastasis and does have episodes where his ammonia level gets very high he becomes confused. Patient's generally can get increased lactulose doses into him and his confusion clears unfortunately she is out of town. According to a neighbor they talked on the phone yesterday he seemed a bit confused if talk to him and he was very confused so EMS was called. Patient presents today with altered mental status. According to EMS, they found him curled up on the floor. Related Data Home Medications Medication Instructions Recorded Confirmed atorvastatin 40 mg tablet 40 mg PO QPM 03/03/22 03/03/22 everolimus (antineoplastic) 5 mg 5 mg PO BID 03/03/22 03/03/22 tablet (Afinitor) linagliptin 5 mg tablet (Tradjenta) 5 mg PO DAILY 03/03/22 03/03/22 [id number]-[id number] 3 - 4 cap PO TIDWMEAL 03/03/22 03/03/22 36,000-114,000-180,000 unit capsule,delay rel (Creon) pantoprazole 40 mg tablet,delayed 40 mg PO BID 03/03/22 03/03/22 release rifaximin 550 mg tablet (Xifaxan) 550 mg PO BID 03/03/22 03/03/22 Previous Rx's Medication Instructions Recorded apixaban 2.5 mg tablet (Eliquis) 2.5 mg PO BID #180 tabs 01/23/22 lactulose 10 gram/15 mL oral 30 ml PO 4XD #946 mL 03/04/22 solution (Enulose) Allergies Allergy/AdvReac Type Severity Reaction Status Date / Time ampicillin AdvReac Mild Verified 03/03/22 08:21 Review of Systems Status of ROS: Reports: unobtainable due to mental status [facility] Medical History (Updated 03/04/22 @ 08:17 by Osmani Naqvi MD) Cirrhosis of liver Esophageal varices Esophageal varices with bleeding Iron deficiency anemia Neuroendocrine tumor of pancreas Surgical History (Updated 03/03/22 @ 18:08 by Osmani Naqvi MD) H/O Whipple procedure History of incisional hernia repair Status post ORIF of fracture of ankle Family History (Updated 03/03/22 @ 18:08 by Osmani Naqvi MD) Sister Diabetes Mother High blood pressure Father High blood pressure Social History (Updated 03/03/22 @ 18:09 by Osmani Naqvi MD) Narrative: He formally lived with his between [place] in [place] on [address]. They still own the home there. He has been doing some work on it this week. They have subsequently moved to [facility] to be near their daughter and to be closer to their neuroendocrine specialist. Code status is full. is healthcare power of state's attorney. Does not smoke. Minimal alcohol consumption Highest level of school completed/degree received: Bachelor's degree Smoking Status: Current every day smoker Do you use any of these nicotine containing products: None Second hand tobacco smoke exposure: No How often do you have a drink containing alcohol: never AUDIT-C Alcohol total score: 0 Non-prescribed substance use: denies use service: No Exam Narrative: Exam Narrative: Well-nourished well-developed patient in no acute distress. He is lying comfortably in bed but is very much so confused. He is protecting his airway and he answers all questions with either a yes or his name. He is breathing and speaking without difficulty. He is not making any sense or engaging in conversation. He does not follow commands. HEENT: Normocephalic atraumatic. Pupils are equally round reactive to light. Extraocular muscles are intact. Conjunctivae are moist without any icterus noted. Moist mucous membranes. Posterior pharynx is normal. Neck is soft without any lymphadenopathy or thyromegaly. No masses are appreciated. Cardiovascular: Heart is regular rate and rhythm S1 and S2 are present without any murmurs. Lungs: Clear to auscultation bilaterally no wheezes rhonchi or rales are appreciated. Abdomen: Soft and nontender nondistended with normal bowel sounds. No guarding or rebound. No masses or organomegaly appreciated. Extremities: Bilateral lower extremities are without edema. Normal DP and PT pulses. Skin: Well perfused without any obvious rashes. I do not see any ecchymosis, no evidence of trauma. Back: Has normal appearance. He has no acute tenderness over the cervical, thoracic or lumbar spine. Const: Vital Signs, click to edit/add: Vital Signs - 24 hr 03/03/22 08:16 03/03/22 08:19 03/03/22 08:30 Temperature 97.0 F L Pulse Rate 76 75 Pulse Rate [Pulse Oximeter] 83 Respiratory Rate 16 Blood Pressure Blood Pressure [Le ft Upper Arm] 114/72 Pulse Oximetry 100 100 100 Oxygen Delivery Me thod Room Air 03/03/22 08:32 03/03/22 08:33 03/03/22 08:38 Temperature Pulse Rate 75 75 Pulse Rate [Pulse Oximeter] Respiratory Rate Blood Pressure 138/72 Blood Pressure [Le ft Upper Arm] Pulse Oximetry 99 99 100 Oxygen Delivery Me thod 03/03/22 08:53 03/03/22 10:30 03/03/22 10:00 Temperature Pulse Rate Pulse Rate [Pulse Oximeter] 74 79 77 Respiratory Rate 16 16 16 Blood Pressure Blood Pressure [Le ft Upper Arm] 138/72 110/62 93/57 L Pulse Oximetry 100 100 99 Oxygen Delivery Me thod Room Air Room Air Room Air 03/03/22 09:30 03/03/22 09:00 03/03/22 11:00 Temperature Pulse Rate Pulse Rate [Pulse Oximeter] 78 79 80 Respiratory Rate 16 16 16 Blood Pressure Blood Pressure [Le ft Upper Arm] 109/58 L 118/68 106/62 Pulse Oximetry 99 99 100 Oxygen Delivery Me thod Room Air Room Air Room Air 03/03/22 11:52 03/03/22 12:00 03/03/22 12:30 Temperature Pulse Rate Pulse Rate [Pulse Oximeter] 80 80 87 Respiratory Rate 16 16 16 Blood Pressure Blood Pressure [Le ft Upper Arm] 112/67 136/89 126/76 Pulse Oximetry 100 100 99 Oxygen Delivery Me thod Room Air Room Air Room Air 03/03/22 13:00 Temperature 97.3 F L Pulse Rate Pulse Rate [Pulse Oximeter] 86 Respiratory Rate 16 Blood Pressure Blood Pressure [Le ft Upper Arm] 134/85 Pulse Oximetry 98 Oxygen Delivery Me thod Room Air Course Course Hospital Course: 61-year-old male with history of metastatic neuroendocrine pancreatic cancer and hepatic encephalopathy presented with somnolence and increased confusion. Time of admission this was felt to be due to hepatic encephalopathy. His ammonia levels 135. He was treated with lactulose. Overnight his mental status improved significantly. He he is now oriented and able to carry on a conversation. He has been able to stand and walk to the bathroom. Overnight he did have several loose stools, not that different from baseline with his lactulose treatment. There is no obvious illness or infection to trigger the hepatic encephalopathy. Reevaluation(s) Reevaluation #1: While in the ER IV was established and labs were drawn. Ammonia level was markedly elevated. While in the ER we did start lactulose q.1 hour. Patient will be admitted for further management. Vital Signs Vital signs: Initial Vital Signs Temperature 97.0 F L 03/03/22 08:16 Temperature Source Temporal Artery Scan 03/03/22 08:16 Pulse Rate 83 03/03/22 08:16 Pulse Rhythm 03/03/22 08:16 Pulse Strength 3+ Normal 03/03/22 08:16 Respiratory Rate 16 03/03/22 08:16 Blood Pressure 114/72 03/03/22 08:16 Blood Pressure Mean 86 03/03/22 08:16 Blood Pressure Position Supine 03/03/22 08:16 Pulse Oximetry 100 03/03/22 08:16 Oxygen Delivery Method 03/03/22 08:16 Vital Signs Temperature 97.0 F L 03/03/22 08:16 Pulse Rate 83 03/03/22 08:16 Respiratory Rate 16 03/03/22 08:16 Blood Pressure 114/72 03/03/22 08:16 Pulse Oximetry 100 03/03/22 08:16 Oxygen Delivery Method 03/03/22 08:16 Temperature 99.0 F 03/04/22 08:03 Pulse Rate 85 03/04/22 08:03 Respiratory Rate 16 03/04/22 08:03 Blood Pressure 146/85 H 03/04/22 08:03 Pulse Oximetry 99 03/04/22 08:03 Oxygen Delivery Method 03/04/22 08:03 Medical Decision Making Lab Data Labs: Lab Results 03/03/22 03/03/22 03/03/22 Range/Units 08:38 08:45 08:45 WBC 3.51 L (4.50-11.00) K/uL RBC 4.02 L (4.30-5.90) m/uL Hgb 11.5 L (13.5-17.5) gm/dL Hct 33.3 L (37.0-53.0) % MCV 83 (80-100) fL MCH 29 (26-34) pg MCHC 35 (32-36) gm/dL RDW Coeff of Estephanie 14.9 (11.5-15.5) % Plt Count 73 L (140-440) K/uL Neut % (Auto) 76.0 H (42.0-72.0) % Lymph % (Auto) 11.4 L (20-44) % Loup % (Auto) 9.4 (0.0-11.0) % Eos % (Auto) 2.3 (0.0-7.0) % Baso % (Auto) 0.6 (0.0-3.0) % Neut # (Auto) 2.70 (1.7-7.0) K/uL Lymph # (Auto) 0.40 L (0.90-2.90) K/uL Loup # (Auto) 0.30 (0.00-0.90) K/UL Eos # (Auto) 0.10 (0.00-0.50) K/uL Baso # (Auto) 0.00 (0.00-0.30) K/uL Abs Immat Gran (auto) 0.00 (0.00-0.30) K/uL Imm/Tot Granulo (auto) 0.3 % Sodium (135-149) mmol/L Potassium (3.6-5.1) mmol/L Chloride (96-114) mmol/L Carbon Dioxide (20-32) mmol/L BUN (7-30) mg/dL Creatinine (0.5-1.5) mg/dL Estimated Creat Clear Estimated GFR ml/min Glucose (60-115) mg/dL Lactate 1.5 (0.5-1.9) mmol/L Calcium (8.4-10.6) mg/dL Total Bilirubin (0.1-1.5) mg/dL Direct Bilirubin (0.0-0.5) mg/dL AST (12-35) U/L ALT (4-50) U/L Alkaline Phosphatase (40-150) U/L Ammonia 124.0 H (13.1-30.0) umol/L Troponin I (0.01-0.04) ng/mL C-Reactive Protein (0.5-1.0) mg/dL Total Protein (6.0-8.3) g/dL Albumin (3.3-5.0) g/dL Ethyl Alcohol (0.01-0.03) % SARS-CoV-2 (PCR) (Negative) 03/03/22 03/03/22 03/03/22 Range/Units 08:45 08:45 12:53 WBC (4.50-11.00) K/uL RBC (4.30-5.90) m/uL Hgb (13.5-17.5) gm/dL Hct (37.0-53.0) % MCV (80-100) fL MCH (26-34) pg MCHC (32-36) gm/dL RDW Coeff of Estephanie (11.5-15.5) % Plt Count (140-440) K/uL Neut % (Auto) (42.0-72.0) % Lymph % (Auto) (20-44) % Loup % (Auto) (0.0-11.0) % Eos % (Auto) (0.0-7.0) % Baso % (Auto) (0.0-3.0) % Neut # (Auto) (1.7-7.0) K/uL Lymph # (Auto) (0.90-2.90) K/uL Loup # (Auto) (0.00-0.90) K/UL Eos # (Auto) (0.00-0.50) K/uL Baso # (Auto) (0.00-0.30) K/uL Abs Immat Gran (auto) (0.00-0.30) K/uL Imm/Tot Granulo (auto) % Sodium 140 (135-149) mmol/L Potassium 3.7 (3.6-5.1) mmol/L Chloride 112 (96-114) mmol/L Carbon Dioxide 24 (20-32) mmol/L BUN 13 (7-30) mg/dL Creatinine 0.7 (0.5-1.5) mg/dL Estimated Creat Clear 86.80 Estimated GFR 105 ml/min Glucose 265 H (60-115) mg/dL Lactate (0.5-1.9) mmol/L Calcium 8.4 (8.4-10.6) mg/dL Total Bilirubin 1.1 Cancelled (0.1-1.5) mg/dL Direct Bilirubin 0.3 Cancelled (0.0-0.5) mg/dL AST 39 H Cancelled (12-35) U/L ALT 41 Cancelled (4-50) U/L Alkaline Phosphatase 189 H Cancelled (40-150) U/L Ammonia (13.1-30.0) umol/L Troponin I < 0.01 L Cancelled (0.01-0.04) ng/mL C-Reactive Protein 1.5 H (0.5-1.0) mg/dL Total Protein 6.0 Cancelled (6.0-8.3) g/dL Albumin 3.4 Cancelled (3.3-5.0) g/dL Ethyl Alcohol < 0.01 L (0.01-0.03) % SARS-CoV-2 (PCR) Negative SARS-CoV-2 (Negative) Imaging Data CT scan - head: Attestation: I have reviewed the pertinent imaging results. Radiologist's impression: Head CT without contrast. COMPARISON: None. FINDINGS: CSF spaces: Within normal limits for age. Brain parenchyma and extra-axial spaces: There are mild nonspecific low attenuation white matter changes consistent with chronic microvascular disease. No intracranial hemorrhage or extra-axial fluid collection. No evidence of mass effect or midline shift. The basilar cisterns are patent. Skull base and calvarium: The visualized paranasal sinuses and mastoid air cells demonstrate no acute or significant findings. The visualized orbits are grossly unremarkable. No skull fractures. IMPRESSION: No evidence of acute intracranial abnormality on this unenhanced CT. Discharge Plan Discharge Clinical Impression: Hepatic encephalopathy Patient Disposition: Admitted As Inpatient Condition: Improved Activity Level: Activity as Tolerated Discharge Diet: Regular
[2022-03-03] MEDS: LACTULOSE 20 GM/30 ML PO ×8 (10:06→19:48)
--- NOTE | 2022-03-03 10:38 | ED.NURSE ---
Patient got out of cart on own and was urinating in sink. Rn had been in room 1 min prior. Security notified to have close observation on patient to prevent falls. unable to collect urine to do this.
--- NOTE | 2022-03-03 11:18 | ED.NURSE ---
Melina, Central Office Operator Supervisor given heads up.
[2022-03-03 13:31] LABS: SARS PCR* Negative SARS-CoV-2 (Negative)
--- NOTE | 2022-03-03 13:56 | ED.NURSE ---
Patient was admitted to /[facility]. Report given to AURELIA schwarz. Patient had extra large stool - soft, formed, brown right before he left. All belongings sent with patient. Left voicemail for patients letting her know he was being admitted to /.
--- NOTE | 2022-03-03 17:58 | PM.IMHP1 ---
Hospitalist- H&P: HPI History of Present Illness Date Seen: 03/03/22 Chief complaint: Raised ammonia levels, confusion Narrative: Son Rouse is a 61 year old male with metastatic neuroendocrine pancreatic tumor and hepatic failure admitted to the hospital with onset of acute confusion in the last day.. Patient lives with his in [place]. They previously been lived in [place]. His is in [place] this week. He has been here doing some maintenance on his home in [place]. Last night his noted that he was not quite himself. Today he is much more confused and so EMS was contacted and brought him here. Here he was hard to arouse, incoherent, restless. reports that his current symptoms are characteristic of his some hepatic encephalopathy. He is on aggressive treatment for this. His liver failure is due to metastases from is pancreatic neuroendocrine tumor. He is getting ongoing care of this through neuroendocrine specialists in [facility]. He normally manages his own medications though his sets them up for him. Concern now is that he may not have been taking them as prescribed. He is according to his relatively functional at most times. This is his 4th or 5th episode of hepatic encephalopathy. Previous hospitalizations on 2 separate occasions including 1 year ago at [facility] when he had bleeding from esophageal varices. Also had an episode in [place]. He has had 2 or 3 episodes where it was managed as an outpatient because his symptoms were not as severe. He has had previous Whipple procedure 5 years ago at [facility]. He had tips procedure done. 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 He is on anticoagulation because of this. He is known to have esophageal varices and has had banding and other IR procedures to obliterate his esophageal varices. Review of Systems Narrative: He has been generally doing well since his last episode of hepatic encephalopathy. No recent illness. No known fever, cough, shortness of breath, chest pain, abdominal pain, bleeding problems, urinary problems, edema. No history of blood clotting problems. He is pending further treatment including embolization of his tumor in his liver. [facility] Medical History (Updated 03/03/22 @ 18:12 by Osmani Naqvi MD) Cirrhosis of liver Esophageal varices Esophageal varices with bleeding Iron deficiency anemia Neuroendocrine tumor of pancreas Surgical History (Updated 03/03/22 @ 18:08 by Osmani Naqvi MD) H/O Whipple procedure History of incisional hernia repair Status post ORIF of fracture of ankle Family History (Updated 03/03/22 @ 18:08 by Osmani Naqvi MD) Sister Diabetes Mother High blood pressure Father High blood pressure Social History (Updated 03/03/22 @ 18:09 by Osmani Naqvi MD) Narrative: He formally lived with his between [place] in [place] on [address]. They still own the home there. He has been doing some work on it this week. They have subsequently moved to [facility] to be near their daughter and to be closer to their neuroendocrine specialist. Code status is full. is healthcare power of disability attorney. Does not smoke. Minimal alcohol consumption Highest level of school completed/degree received: Bachelor's degree Smoking Status: Current every day smoker Do you use any of these nicotine containing products: None Second hand tobacco smoke exposure: No How often do you have a drink containing alcohol: never AUDIT-C Alcohol total score: 0 Non-prescribed substance use: denies use service: No Meds Home Medications and Allergies Home Medications Medication Instructions Recorded Confirmed Type atorvastatin 40 mg tablet 40 mg PO QPM 03/03/22 03/03/22 History everolimus (antineoplastic) 5 mg 5 mg PO BID 03/03/22 03/03/22 History tablet (Afinitor) lactulose 10 gram/15 mL oral 15 ml PO 5XD 03/03/22 03/03/22 History solution (Enulose) linagliptin 5 mg tablet (Tradjenta) 5 mg PO DAILY 03/03/22 03/03/22 History mfpuja-taxpcgnl-jzjvwcu 3 - 4 cap PO TIDWMEAL 03/03/22 03/03/22 History 36,000-114,000-180,000 unit capsule,delay rel (Creon) pantoprazole 40 mg tablet,delayed 40 mg PO BID 03/03/22 03/03/22 History release rifaximin 550 mg tablet (Xifaxan) 550 mg PO BID 03/03/22 03/03/22 History Allergies Allergy/AdvReac Type Severity Reaction Status Date / Time ampicillin AdvReac Mild Verified 03/03/22 08:21 Exam Narrative: Exam Narrative: He is arousable. He is able to speak fluently but unable to give any significant meaningful information in conversation. He is not oriented to his circumstances. He is pleasant and cooperative and quite passive. Head is without trauma. Eyes with some scleral icterus. Oropharynx with dry mucous membranes. No facial asymmetry. Neck is supple without mass or adenopathy. Respirations are clear to auscultation. Cardiovascular: S1, S2, regular rate and rhythm. No murmur gallop rub. Abdomen is soft without tenderness or mass. No abdominal distention or ascites. He does have a periumbilical hernia which is nontender. External genitalia normal. Extremities normal. Intact pulses and sensation. No edema. He has a asterixis with flapping of his fingers in extension. Const: Vital Signs, click to edit/add: Vital Signs - 24 hr 03/03/22 08:16 03/03/22 08:19 03/03/22 08:30 Temperature 97.0 F L Pulse Rate 76 75 Pulse Rate [Pulse Oximeter] 83 Pulse Rate [Right Radial] Respiratory Rate 16 Blood Pressure Blood Pressure [Le ft Upper Arm] 114/72 Blood Pressure [Ri ght Arm] Pulse Oximetry 100 100 100 Oxygen Delivery Wa thod Room Air 03/03/22 08:32 03/03/22 08:33 03/03/22 08:38 Temperature Pulse Rate 75 75 Pulse Rate [Pulse Oximeter] Pulse Rate [Right Radial] Respiratory Rate Blood Pressure 138/72 Blood Pressure [Le ft Upper Arm] Blood Pressure [Ri ght Arm] Pulse Oximetry 99 99 100 Oxygen Delivery Me thod 03/03/22 08:53 03/03/22 10:30 03/03/22 10:00 Temperature Pulse Rate Pulse Rate [Pulse Oximeter] 74 79 77 Pulse Rate [Right Radial] Respiratory Rate 16 16 16 Blood Pressure Blood Pressure [Le ft Upper Arm] 138/72 110/62 93/57 L Blood Pressure [Ri ght Arm] Pulse Oximetry 100 100 [facility] Room [facility] Room Air 03/03/22 09:30 03/03/22 09:00 03/03/22 11:00 Temperature Pulse Rate Pulse Rate [Pulse Oximeter] 78 79 80 Pulse Rate [Right Radial] Respiratory Rate 16 16 16 Blood Pressure Blood Pressure [Le ft Upper Arm] 109/58 L 118/68 106/62 Blood Pressure [Ri ght Arm] Pulse Oximetry 99 99 [facility] Room Air Room Air 03/03/22 11:52 03/03/22 12:00 03/03/22 12:30 Temperature Pulse Rate Pulse Rate [Pulse Oximeter] 80 80 87 Pulse Rate [Right Radial] Respiratory Rate 16 16 16 Blood Pressure Blood Pressure [Le ft Upper Arm] 112/67 136/89 126/76 Blood Pressure [Ri ght Arm] Pulse Oximetry 100 100 99 Oxygen Delivery Me thod Room Air Room Air Room Air 03/03/22 13:00 03/03/22 14:03 03/03/22 15:00 Temperature 97.3 F L 97.9 F Pulse Rate Pulse Rate [Pulse Oximeter] 86 Pulse Rate [Right Radial] 96 97 Respiratory Rate 16 16 16 Blood Pressure Blood Pressure [Le ft Upper Arm] 134/85 Blood Pressure [Ri ght Arm] Pulse Oximetry 98 99 Oxygen Delivery Me thod Room Air Room Air 03/03/22 16:52 Temperature 98.5 F Pulse Rate Pulse Rate [Pulse Oximeter] Pulse Rate [Right Radial] 84 Respiratory Rate 16 Blood Pressure Blood Pressure [Le ft Upper Arm] Blood Pressure [Ri ght Arm] 132/82 Pulse Oximetry 98 Oxygen Delivery Me thod Room Air Documenting provider has reviewed patient's vital signs: yes Hospitalist - H&P: Result Labs Labs: Short CBC 03/03/22 Range/Units 08:45 WBC 3.51 L (4.50-11.00) K/uL Hgb 11.5 L (13.5-17.5) gm/dL Hct 33.3 L (37.0-53.0) % Plt Count 73 L (140-440) K/uL BMP 03/03/22 08:45 Sodium 140 Potassium 3.7 Chloride 112 Carbon Dioxide 24 BUN 13 Creatinine 0.7 Glucose 265 H Calcium 8.4 Cardiac Enzymes 03/03/22 03/03/22 Range/Units 08:45 08:45 Troponin I < 0.01 L Cancelled (0.01-0.04) ng/mL Liver Function 03/03/22 03/03/22 Range/Units 08:45 08:45 Total Bilirubin 1.1 Cancelled (0.1-1.5) mg/dL Direct Bilirubin 0.3 Cancelled (0.0-0.5) mg/dL AST 39 H Cancelled (12-35) U/L ALT 41 Cancelled (4-50) U/L Alkaline Phosphatase 189 H Cancelled (40-150) U/L Albumin 3.4 Cancelled (3.3-5.0) g/dL Assessment and Plan Assessment and plan (1) Hepatic encephalopathy: Problem comment: No obvious illness or complicating features. Likely just missing his usual medications. Status: Acute (2) Cirrhosis of liver: Problem comment: Hepatic failure due to his neuroendocrine tumor. Portal hypertension with splenomegaly, esophageal varices. Status post tips. History of Whipple. Status: Acute (3) Neuroendocrine tumor of pancreas: Problem comment: History of Whipple procedure. Ongoing management through neuroendocrine specialist in [place] Status: Acute (4) Hypertension: Status: Acute (5) Hyperlipidemia: Status: Acute (6) GERD (gastroesophageal reflux disease): Status: Acute (7) Iron deficiency anemia: Problem comment: Iron transfusion last week Status: Acute (8) DM type 2 (diabetes mellitus, type 2): Status: Acute Plan Admit to the hospital with aggressive treatment with lactulose orally or rectally if necessary. Continue rifaximin and other routine medications. Anticipate relatively quickly recur covering from this with discharge with his . Total time spent is 70 minutes, 40 minutes in coordination of care discussing with and other providers management of hepatic encephalopathy.
[2022-03-03] MEDS: PANCREALIPASE (12,38,60) CAP 4 CAP PO (18:01)
[2022-03-03] MEDS: ATORVASTATIN CALCIUM 40 MG TABLET PO (18:01)
[2022-03-03] MEDS: APIXABAN 5 MG TABLET 2.5 MG PO (22:16)
[2022-03-03] MEDS: OMEPRAZOLE 20 MG CAPSULE DR 40 MG PO (22:17)
[2022-03-04 00:16] VITALS: BP 128/74; PULSE 78; RESP 16; TEMP 36.8; O2SAT 98
--- NOTE | 2022-03-04 00:39 | PC.NURSE ---
call placed to marci to verify the following; patients wondering if patient needs additional lactose overnight, restart time for daily lactulose for 03/04, labs.
[2022-03-04 05:19] VITALS: BP 138/74; PULSE 73; RESP 16; TEMP 36.6; O2SAT 97
--- NOTE | 2022-03-04 06:00 | PC.NURSE ---
patients in room all night, patient slept on and off during the shift. reports no pain, confusion clearing.
[2022-03-04 06:06] LABS: Appearance Urine Clear (Clear); Bilirubin Urine Negative (Negative); Blood Urine Negative (Negative); Color Urine Yellow (Yellow); Glucose Urine 3+ (Negative); Ketones Urine Trace (Negative); Leukocyte Esterase Urine Negative (Negative); Nitrite Urine Negative (Negative); Protein Urine Negative (Negative); Specific Gravity Urine 1.025 (1.000-1.030); Urobilinogen Urine 0.2 (0.2-1.0)
[2022-03-04 06:13] LABS: Amphetamine Screen Urine Negative (Negative); Barbiturate Screen Urine Negative (Negative); Benzodiazepines Screen Urine Negative (Negative); Cannabinoid Screen Urine Negative (Negative); Cocaine Screen Urine Negative (Negative); Methadone Screen Urine Negative (Negative); Methamphetamines Screen Urine Negative (Negative); Opiate Screen Urine Negative (Negative); Oxycodone Screen Urine Negative (Negative); Phencyclidine Screen Urine Negative (Negative); Tricyclic Antidepressant Urine Negative (Negative)
[2022-03-04 06:24] LABS: RBC Urine 0-2 (0-2); Squamous Epithelial Cell Urine Few (None-Few); WBC Urine 0-2 (0-5)
[2022-03-04 07:09] LABS: Eosinophils Percent Auto 7.2 % (0.0-7.0); Hematocrit 32.7 % (37.0-53.0); Hemoglobin* 11.2 gm/dL (13.5-17.5); Lymphocytes Percent Auto 21.7 % (20-44); Mean Corpuscular HGB Conc 34 gm/dL (32-36); Mean Corpuscular Hemoglobin 28 pg (26-34); Mean Corpuscular Volume 83 fL (80-100); Monocytes Percent Auto 18.4 % (0.0-11.0); Neutrophils Percent Auto 51.7 % (42.0-72.0); Platelet Count* 70 K/uL (140-440); Red Blood Count 3.95 m/uL (4.30-5.90); White Blood Count* 2.07 K/uL (4.50-11.00)
[2022-03-04 07:12] LABS: Slide Review Reflex No
[2022-03-04 07:25] LABS: Albumin* 3.4 g/dL (3.3-5.0); Chloride* 113 mmol/L (96-114); Sodium* 139 mmol/L (135-149)
[2022-03-04 07:26] LABS: Potassium* 3.4 mmol/L (3.6-5.1)
[2022-03-04 07:28] LABS: Alanine Aminotransferase* 40 U/L (4-50); Alkaline Phosphatase* 182 U/L (40-150); Aspartate Amino Transferase* 37 U/L (12-35); Bilirubin Total* 1.2 mg/dL (0.1-1.5); Blood Urea Nitrogen* 14 mg/dL (7-30); Calcium* 8.4 mg/dL (8.4-10.6); Carbon Dioxide* 20 mmol/L (20-32); Creatinine* 0.6 mg/dL (0.5-1.5); Est. Creatinine Clearance* 122.26; Estimated Glomerular Filt Rate 111 ml/min; Glucose* 246 mg/dL (60-115)
[2022-03-04 08:03] VITALS: BP 146/85; PULSE 85; RESP 16; TEMP 37.2; O2SAT 99
[2022-03-04] MEDS: APIXABAN 5 MG TABLET 2.5 MG PO (08:07)
[2022-03-04] MEDS: OMEPRAZOLE 20 MG CAPSULE DR 40 MG PO (08:07)
[2022-03-04] MEDS: PANCREALIPASE (12,38,60) CAP 4 CAP PO (08:08)
--- NOTE | 2022-03-04 08:16 | PM.DS1 ---
DS: Providers Provider Date Seen: 03/04/22 Date of admission: 03/03/22 13:41 Primary care physician: Hiram Saini MD Admitting Clinician: Osmani Naqvi MD Attending Physician on discharge: Osmani Naqvi MD Date of Discharge: 03/04/22 DS: Diagnosis Discharge Diagnosis (1) Hepatic encephalopathy: Status: Acute Problem details: No obvious illness or complicating features. Much improved today with lactulose therapy. (2) Neuroendocrine tumor of pancreas: Status: Acute Problem details: History of Whipple procedure. 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 Portal hypertension with splenomegaly, esophageal varices. Status post TIPS. History of Whipple. (4) Iron deficiency anemia: Status: Acute Problem details: Iron transfusion last week. Iron studies pending DS: Summary Hospital Course Hospital Course: 61-year-old male with history of metastatic neuroendocrine pancreatic cancer and hepatic encephalopathy presented with somnolence and increased confusion. Time of admission this was felt to be due to hepatic encephalopathy. His ammonia levels 135. He was treated with lactulose. Overnight his mental status improved significantly. He he is now oriented and able to carry on a conversation. He has been able to stand and walk to the bathroom. Overnight he did have several loose stools, not that different from baseline with his lactulose treatment. There is no obvious illness or infection to trigger the hepatic encephalopathy. Status at Discharge Functional status at discharge: independent ambulation Overall status at discharge: patient is progressing back to baseline Time Spent with Patient Time attestation: Total time spent providing and/or coordinating discharge services: Exam Narrative: Exam Narrative: He is alert and appears in no distress. Speech is fluent. He is oriented to his circumstances. He is able to carry on a conversation about recent events though he does not remember much from yesterday. Asterixis has resolved Const: Vital Signs, click to edit/add: Vital Signs - 24 hr 03/03/22 08:19 03/03/22 08:30 03/03/22 08:32 Temperature Pulse Rate 76 75 75 Pulse Rate [Pulse Oximeter] Pulse Rate [Right Radial] Respiratory Rate Blood Pressure 138/72 Blood Pressure [Le ft Upper Arm] Blood Pressure [Ri ght Arm] Pulse Oximetry 100 100 99 Oxygen Delivery Me thod 03/03/22 08:33 03/03/22 08:38 03/03/22 08:53 Temperature Pulse Rate 75 Pulse Rate [Pulse Oximeter] 74 Pulse Rate [Right Radial] Respiratory Rate 16 Blood Pressure Blood Pressure [Le ft Upper Arm] 138/72 Blood Pressure [Ri ght Arm] Pulse Oximetry 99 100 100 Oxygen Delivery Me thod Room Air 03/03/22 10:30 03/03/22 10:00 03/03/22 09:30 Temperature Pulse Rate Pulse Rate [Pulse Oximeter] 79 77 78 Pulse Rate [Right Radial] Respiratory Rate 16 16 16 Blood Pressure Blood Pressure [Le ft Upper Arm] 110/62 93/57 L 109/58 L Blood Pressure [Ri ght Arm] Pulse Oximetry 100 99 99 Oxygen Delivery Me thod Room Air Room Air Room Air 03/03/22 09:00 03/03/22 11:00 03/03/22 11:52 Temperature Pulse Rate Pulse Rate [Pulse Oximeter] 79 80 80 Pulse Rate [Right Radial] Respiratory Rate 16 16 16 Blood Pressure Blood Pressure [Le ft Upper Arm] 118/68 106/62 112/67 Blood Pressure [Ri ght Arm] Pulse Oximetry 99 100 100 Oxygen Delivery Me thod Room Air Room Air Room Air 03/03/22 12:00 03/03/22 12:30 03/03/22 13:00 Temperature 97.3 F L Pulse Rate Pulse Rate [Pulse Oximeter] 80 87 86 Pulse Rate [Right Radial] Respiratory Rate 16 16 16 Blood Pressure Blood Pressure [Le ft Upper Arm] 136/89 126/76 134/85 Blood Pressure [Ri ght Arm] Pulse Oximetry 100 99 98 Oxygen Delivery Me thod Room Air Room Air Room Air 03/03/22 14:03 03/03/22 15:00 03/03/22 16:52 Temperature 97.9 F 98.5 F Pulse Rate Pulse Rate [Pulse Oximeter] Pulse Rate [Right Radial] 96 97 84 Respiratory Rate 16 16 16 Blood Pressure Blood Pressure [Le ft Upper Arm] Blood Pressure [Ri ght Arm] 132/82 Pulse Oximetry 99 98 Oxygen Delivery Me thod Room Air Room Air 03/04/22 00:16 03/03/22 23:00 03/04/22 05:19 Temperature 98.2 F 98 F Pulse Rate Pulse Rate [Pulse Oximeter] Pulse Rate [Right Radial] 78 76 73 Respiratory Rate 16 16 16 Blood Pressure Blood Pressure [Le ft Upper Arm] Blood Pressure [Ri ght Arm] 128/74 138/74 Pulse Oximetry 98 97 Oxygen Delivery Me thod Room Air Room Air 03/04/22 08:03 Temperature 99.0 F Pulse Rate Pulse Rate [Pulse Oximeter] Pulse Rate [Right Radial] 85 Respiratory Rate 16 Blood Pressure Blood Pressure [Le ft Upper Arm] Blood Pressure [Ri ght Arm] 146/85 H Pulse Oximetry 99 Oxygen Delivery Me thod Room Air Documenting provider has reviewed patient's vital signs: yes DS: Data Data Completed and Pending Labs on day of discharge: Labs from last 24 hours 03/04/22 03/04/22 03/04/22 08:14 08:14 06:22 WBC RBC Hgb Hct MCV MCH MCHC RDW Coeff of Estephanie Plt Count Neut % (Auto) Lymph % (Auto) [place] % (Auto) Eos % (Auto) Baso % (Auto) Neut # (Auto) Lymph # (Auto) [place] # (Auto) Eos # (Auto) Baso # (Auto) Abs Immat Gran (auto) Imm/Tot Granulo (auto) Sodium Potassium Chloride Carbon Dioxide BUN Creatinine Estimated Creat Clear Estimated GFR Glucose Lactate Calcium Iron Pending TIBC Pending % Saturation Pending Total Bilirubin Direct Bilirubin AST ALT Alkaline Phosphatase Ammonia Pending 35.0 H Troponin I C-Reactive Protein Total Protein Albumin Urine Color Urine Appearance Urine pH Ur Specific Delta Urine Protein Urine Glucose (UA) Urine Ketones Urine Blood Urine Nitrite Urine Bilirubin Urine Urobilinogen Ur Leukocyte Esterase Urine RBC Urine WBC Ur Squamous Epith Cells Other Sediment Urine Bacteria Urine Opiates Screen Ur Oxycodone Screen Urine Methadone Screen Ur Propoxyphene Screen Ur Barbiturates Screen U Tricyclic Antidepress Ur Phencyclidine Scrn Ur Amphetamines Screen U Methamphetamines Scrn U Benzodiazepines Scrn Urine Cocaine Screen U Marijuana (THC) Screen Ur Drug Screen Comment Ethyl Alcohol SARS-CoV-2 (PCR) 03/04/22 03/04/22 03/04/22 06:22 06:22 05:45 WBC 2.07 L RBC 3.95 L Hgb 11.2 L Hct 32.7 L MCV 83 MCH 28 MCHC 34 RDW Coeff of Estephanie 15.0 Plt Count 70 L Neut % (Auto) 51.7 Lymph % (Auto) 21.7 [place] % (Auto) 18.4 H Eos % (Auto) 7.2 H Baso % (Auto) 1.0 Neut # (Auto) 1.10 L Lymph # (Auto) 0.40 L [place] # (Auto) 0.40 Eos # (Auto) 0.10 Baso # (Auto) 0.00 Abs Immat Gran (auto) 0.00 Imm/Tot Granulo (auto) 0.0 Sodium 139 Potassium 3.4 L Chloride 113 Carbon Dioxide 20 BUN 14 Creatinine 0.6 Estimated Creat Clear 122.26 Estimated GFR 111 Glucose 246 H Lactate Calcium 8.4 Iron TIBC % Saturation Total Bilirubin 1.2 Direct Bilirubin AST 37 H ALT 40 Alkaline Phosphatase 182 H Ammonia Troponin I C-Reactive Protein Total Protein 6.0 Albumin 3.4 Urine Color Yellow Urine Appearance Clear Urine pH 6.0 Ur Specific Delta 1.025 Urine Protein Negative Urine Glucose (UA) 3+ A Urine Ketones Trace A Urine Blood Negative Urine Nitrite Negative Urine Bilirubin Negative Urine Urobilinogen 0.2 Ur Leukocyte Esterase Negative Urine RBC 0-2 Urine WBC 0-2 Ur Squamous Epith Cells Few Other Sediment Urine Bacteria None Urine Opiates Screen Ur Oxycodone Screen Urine Methadone Screen Ur Propoxyphene Screen Ur Barbiturates Screen U Tricyclic Antidepress Ur Phencyclidine Scrn Ur Amphetamines Screen U Methamphetamines Scrn U Benzodiazepines Scrn Urine Cocaine Screen U Marijuana (THC) Screen Ur Drug Screen Comment Ethyl Alcohol SARS-CoV-2 (PCR) 03/04/22 03/03/22 03/03/22 05:45 12:53 08:45 WBC RBC Hgb Hct MCV MCH MCHC RDW Coeff of Estephanie Plt Count Neut % (Auto) Lymph % (Auto) [place] % (Auto) Eos % (Auto) Baso % (Auto) Neut # (Auto) Lymph # (Auto) [place] # (Auto) Eos # (Auto) Baso # (Auto) Abs Immat Gran (auto) Imm/Tot Granulo (auto) Sodium Potassium Chloride Carbon Dioxide BUN Creatinine Estimated Creat Clear Estimated GFR Glucose Lactate Calcium Iron TIBC % Saturation Total Bilirubin Cancelled Direct Bilirubin Cancelled AST Cancelled ALT Cancelled Alkaline Phosphatase Cancelled Ammonia Troponin I Cancelled C-Reactive Protein Total Protein Cancelled Albumin Cancelled Urine Color Urine Appearance Urine pH Ur Specific Delta Urine Protein Urine Glucose (UA) Urine Ketones Urine Blood Urine Nitrite Urine Bilirubin Urine Urobilinogen Ur Leukocyte Esterase Urine RBC Urine WBC Ur Squamous Epith Cells Other Sediment Urine Bacteria Urine Opiates Screen Negative Ur Oxycodone Screen Negative Urine Methadone Screen Negative Ur Propoxyphene Screen Negative Ur Barbiturates Screen Negative U Tricyclic Antidepress Negative Ur Phencyclidine Scrn Negative Ur Amphetamines Screen Negative U Methamphetamines Scrn Negative U Benzodiazepines Scrn Negative Urine Cocaine Screen Negative U Marijuana (THC) Screen Negative Ur Drug Screen Comment See Note Ethyl Alcohol SARS-CoV-2 (PCR) Negative SARS-CoV-2 03/03/22 03/03/22 03/03/22 08:45 08:45 08:45 WBC 3.51 L RBC 4.02 L Hgb 11.5 L Hct 33.3 L MCV 83 MCH 29 MCHC 35 RDW Coeff of Estephanie 14.9 Plt Count 73 L Neut % (Auto) 76.0 H Lymph % (Auto) 11.4 L [place] % (Auto) 9.4 Eos % (Auto) 2.3 Baso % (Auto) 0.6 Neut # (Auto) 2.70 Lymph # (Auto) 0.40 L [place] # (Auto) 0.30 Eos # (Auto) 0.10 Baso # (Auto) 0.00 Abs Immat Gran (auto) 0.00 Imm/Tot Granulo (auto) 0.3 Sodium 140 Potassium 3.7 Chloride 112 Carbon Dioxide 24 BUN 13 Creatinine 0.7 Estimated Creat Clear 86.80 Estimated GFR 105 Glucose 265 H Lactate Calcium 8.4 Iron TIBC % Saturation Total Bilirubin 1.1 Direct Bilirubin 0.3 AST 39 H ALT 41 Alkaline Phosphatase 189 H Ammonia 124.0 H Troponin I < 0.01 L C-Reactive Protein 1.5 H Total Protein 6.0 Albumin 3.4 Urine Color Urine Appearance Urine pH Ur Specific Delta Urine Protein Urine Glucose (UA) Urine Ketones Urine Blood Urine Nitrite Urine Bilirubin Urine Urobilinogen Ur Leukocyte Esterase Urine RBC Urine WBC Ur Squamous Epith Cells Other Sediment Urine Bacteria Urine Opiates Screen Ur Oxycodone Screen Urine Methadone Screen Ur Propoxyphene Screen Ur Barbiturates Screen U Tricyclic Antidepress Ur Phencyclidine Scrn Ur Amphetamines Screen U Methamphetamines Scrn U Benzodiazepines Scrn Urine Cocaine Screen U Marijuana (THC) Screen Ur Drug Screen Comment Ethyl Alcohol < 0.01 L SARS-CoV-2 (PCR) 03/03/22 08:38 WBC RBC Hgb Hct MCV MCH MCHC RDW Coeff of Estephanie Plt Count Neut % (Auto) Lymph % (Auto) [place] % (Auto) Eos % (Auto) Baso % (Auto) Neut # (Auto) Lymph # (Auto) [place] # (Auto) Eos # (Auto) Baso # (Auto) Abs Immat Gran (auto) Imm/Tot Granulo (auto) Sodium Potassium Chloride Carbon Dioxide BUN Creatinine Estimated Creat Clear Estimated GFR Glucose Lactate 1.5 Calcium Iron TIBC % Saturation Total Bilirubin Direct Bilirubin AST ALT Alkaline Phosphatase Ammonia Troponin I C-Reactive Protein Total Protein Albumin Urine Color Urine Appearance Urine pH Ur Specific Delta Urine Protein Urine Glucose (UA) Urine Ketones Urine Blood Urine Nitrite Urine Bilirubin Urine Urobilinogen Ur Leukocyte Esterase Urine RBC Urine WBC Ur Squamous Epith Cells Other Sediment Urine Bacteria Urine Opiates Screen Ur Oxycodone Screen Urine Methadone Screen Ur Propoxyphene Screen Ur Barbiturates Screen U Tricyclic Antidepress Ur Phencyclidine Scrn Ur Amphetamines Screen U Methamphetamines Scrn U Benzodiazepines Scrn Urine Cocaine Screen U Marijuana (THC) Screen Ur Drug Screen Comment Ethyl Alcohol SARS-CoV-2 (PCR) Discharge Plan Discharge Disposition: Home, Self-Care Date of Admission: 03/03/22 13:41 Primary Care Provider: Hiram Saini Condition: Improved Anticipated Discharge Date/Time: 03/04/22 08:21 Discharge Medications: Continued Creon 36,000-114,000- 180,000 unit capsule,delayed release(DR/EC) 3 - 4 cap PO TIDWMEAL Xifaxan 550 mg tablet 550 mg PO BID pantoprazole 40 mg tablet,delayed release (DR/EC) 40 mg PO BID everolimus (antineoplastic) [Afinitor] 5 mg tablet 5 mg PO BID atorvastatin 40 mg tablet 40 mg PO QPM Tradjenta 5 mg tablet 5 mg PO DAILY Eliquis 2.5 mg tablet 2.5 mg PO BID Qty: 180 0RF Changed lactulose [Enulose] 10 gram/15 mL solution 30 ml PO 4XD Qty: 946 0RF Discharge Orders: Discharge Order (Routine); Ordered 03/04/22 Ordered By: Osmani Naqvi Additional Instructions: Follow-up with your oncologist as previously scheduled. Follow Up Appointments: Hiram Saini MD [Primary Care Provider] - Forms: [employer] Info Instructions
[2022-03-04] MEDS: ACETAMINOPHEN 325 MG TABLET 650 MG PO (08:22)
[2022-03-04 08:58] LABS: Iron* 54 ug/dL (49-181)
[2022-03-04 09:08] LABS: Percent Iron Saturation 21 % (20-50); Total Iron Binding Capacity 265 ug/dL (261-462)
== END 2022-03-04 10:24 | disposition home or self-care (01) ==
LOC: ED 12:49 → MEDSURG 13:41
PROVIDERS: Internal Medicine; Admitting Provider Family Medicine; Emergency Provider Family Medicine; PCP Family Medicine; Visit Provider Family Medicine
DX: K76.82 Hepatic encephalopathy (principal); K74.60 Unspecified cirrhosis of liver; D3A.8 Other benign neuroendocrine tumors; K72.90 Hepatic failure, unspecified without coma; R41.0 Disorientation, unspecified; E72.29 Other disorders of urea cycle metabolism; D50.9 Iron deficiency anemia, unspecified; E78.5 Hyperlipidemia, unspecified; K21.9 Gastro-esophageal reflux disease without esophagitis; E11.9 Type 2 diabetes mellitus without complications; Z90.49 Acquired absence of other specified parts of digestive tract; K76.6 Portal hypertension; I85.00 Esophageal varices without bleeding; R16.1 Splenomegaly, not elsewhere classified; Z85.07 Personal history of malignant neoplasm of pancreas; Z79.01 Long term (current) use of anticoagulants; F17.200 Nicotine dependence, unspecified, uncomplicated; I10 Essential (primary) hypertension
CPT/HCPCS: 36415; 70450; 80048; 80053; 80076; 80306; 81001; 82077; 82140; 83540; 83550; 83605; 84484; 85025; 86140; 87086; 87635; 93005; 94761; 99284; 99285; A9270; G0378